=== PATIENT | female | born 1955 | race Caucasian/White ===

== ENCOUNTER 2024-01-26 13:54 | Observation (INO) | payer MEDICARE, SELFPAY ==
[2024-01-26] VITALS (40 sets, daily range): BP systolic 129–161; BP diastolic 81–109; PULSE 52–91; TEMP 36.7–36.8; O2SAT 18–99; BMI 18.5; BMI 19.4
--- NOTE | 2024-01-26 14:20 | CT_ITS ---
The [address] [address] Patient Name: ZHEN OCAMPO MRN: [id number] date: 1955 Sex: F Assigned Patient Location: ER Current Patient Location: Accession/Order Number: [id number] Exam Date: 01/26/2024 15:02 Report Date: 01/26/2024 15:58 At the request of: JUAN PABLO HERNÁNDEZ Procedure: CT abdomen pelvis wo con EXAMINATION: CT abdomen pelvis wo con HISTORY: Right flank pain COMPARISON: No relevant comparison available. TECHNIQUE: Axial, Coronal, and Sagittal images were created without IV contrast. Dose reduction techniques were achieved by using automated exposure control and/or adjustment of mA and/or kV according to patient size and/or use of iterative reconstruction technique. FINDINGS: LUNG BASES: Bibasilar patchy infiltrates with a central predominance. Mild coronary atherosclerosis LIVER: No enlargement, atrophy, abnormal density, or significant focal lesion. BILIARY: Surgical clips from cholecystectomy PANCREAS: No lesion, fluid collection, ductal dilatation, or atrophy. SPLEEN: No enlargement or focal lesion. ADRENALS: No mass or enlargement. KIDNEYS: No mass, obstruction, or calcification. BOWEL/MESENTERY: Moderate colonic diverticulosis without evidence of acute diverticulitis. Moderate amount of stool in the cecum. Nonobstructive bowel gas pattern AORTA/VASCULAR: Moderate calcific atherosclerosis RETROPERITONEUM: No mass or adenopathy. LYMPH NODES: No adenopathy. URINARY BLADDER: No visible focal wall thickening, lesion, or calculus. PELVIC ORGANS: Hysterectomy ABDOMINAL WALL: No mass or hernia. BONES: Posterior decompression bilateral transpedicular fusion OTHER: Negative. CT/CT abdomen pelvis wo con IMPRESSION: Bilateral patchy parenchymal infiltrates with a central predominance. CT scan of the chest recommended for further evaluation Moderate amount of stool in the cecum No obstructive uropathy Electronically authenticated by: NKECHI ZHOU Date: 01/26/2024 15:58
--- NOTE | 2024-01-26 14:20 | XR_ITS ---
The [address] [address] Patient Name: ZHEN OCAMPO MRN: [id number] date: 1955 Sex: F Assigned Patient Location: ER Current Patient Location: ER Accession/Order Number: [id number] Exam Date: 01/26/2024 15:02 Report Date: 01/26/2024 15:33 At the request of: JUAN PABLO HERNÁNDEZ Procedure: XR chest 1V EXAMINATION: XR chest 1V HISTORY: Shortness of breath COMPARISON: 11/20/2012 TECHNIQUE: AP portable FINDINGS: LUNGS: Focal central and basilar infiltrates, right greater than left. Mild peripheral intralobular septal thickening VASCULATURE: Mildly increased pulmonary vasculature PLEURA: No pneumothorax, effusion, or pleural thickening. CARDIAC: No cardiomegaly or cardiac silhouette abnormality. MEDIASTINUM: No visible mass or adenopathy. BONES: No fracture or visible bone lesion. OTHER: Negative. XR/XR chest 1V IMPRESSION: Suspected pulmonary edema Electronically authenticated by: NKECHI ZHOU Date: 01/26/2024 15:33
--- NOTE | 2024-01-26 14:20 | ECG_ITS ---
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
--- NOTE | 2024-01-26 14:22 | ED.GENADUL1 ---
HPI HPI - General Adult General Chief complaint: Urogenital-Female Stated complaint: ABNORMAL LAB VALUE Time Seen by Provider: 01/26/24 14:13 Mode of arrival: walk-in Limitations: no limitations History of Present Illness HPI narrative: Patient is a 68-year-old female who presents to the emergency department where she was referred by her nurse practitioner out of the primary care office. Patient states she was seen for generalized weakness and fatigue over the last 1 to 2 weeks and had outpatient labs done yesterday. She states she was contacted today to report a urinary tract infection and she was started on Macrobid and a steroid. She has been having pain in the right flank and right low back. She denies any injuries or traumas. She has no abdominal pain or chest pain. She has no severe shortness of breath, cough or congestion but states with exertion she has been feeling fatigued. No fevers or vomiting. She reports decreased oral intake but has been drinking fluids well. She has no urinary symptoms. She has no severe pain at this time. She states she was told her labs are all out of whack and she should come to the emergency department. She does not know which labs specifically were concerning to her PCP. Related Data Home Medications ?Medication ?Instructions ?Recorded ?Confirmed bisoprolol 5 1 tab PO DAILY 01/26/24 01/26/24 mg-hydrochlorothiazide 6.25 mg tablet gabapentin 300 mg capsule 300 mg PO Q12H 01/26/24 01/26/24 hydrocodone 5 mg-acetaminophen 325 1 tab PO Q6H PRN pain 01/26/24 01/26/24 mg tablet levothyroxine 100 mcg tablet 100 mcg PO DAILY 01/26/24 01/26/24 (Synthroid) nitrofurantoin 100 mg PO Q12H 01/26/24 01/26/24 monohydrate/macrocrystals 100 mg capsule prednisone 20 mg tablet 20 mg PO Q12H 01/26/24 01/26/24 simvastatin 5 mg tablet 5 mg PO DAILY 01/26/24 01/26/24 venlafaxine 150 mg 150 mg PO DAILY 01/26/24 01/26/24 capsule,extended release 24 hr Allergies Allergy/AdvReac Type Severity Reaction Status Date / Time No Known Drug Allergies Allergy Verified 01/26/24 14:14 Opioid HPI Opioid Management Most Recent Opioid Data: No Data to Display Review of Systems ROS Constitutional Reports: fatigue and malaise; Denies: fever or chills Eyes Denies: change in vision Ears, nose, mouth, and throat Denies: throat pain or nasal congestion Cardiovascular Denies: chest pain Respiratory Reports: shortness of breath; Denies: cough Gastrointestinal Denies: abdominal pain, nausea, vomiting or diarrhea Genitourinary Denies: painful urination Musculoskeletal Reports: back pain; Denies: neck pain Integumentary/Breast Denies: rash Neurological Denies: headache Hematologic/Lymphatic Denies: easy bruising or easy bleeding Exam Narrative Exam Narrative: Gen.: Awake, alert, in no distress Head: Normocephalic, atraumatic ENT: Moist mucous membranes Respiratory: No respiratory distress, lungs clear bilaterally Cardio: Regular rate and rhythm Gastrointestinal: Abdomen is soft, nondistended and nontender to palpation Back: No CVA tenderness Extremities: Moves extremities equally, no injuries noted Psych: Normal mood and affect Neuro: No focal neuro deficit Skin: Warm, dry, intact Constitutional Vital Signs, click to edit/add: Last Vital Signs Temp 98.2 F 01/26/24 14:10 Pulse 80 01/26/24 18:10 Resp 19 01/26/24 18:10 BP 142/85 H 01/26/24 17:45 Pulse Ox 95 01/26/24 17:50 O2 Del Method Room Air 01/26/24 14:10 Course Vital Signs Vital signs: Vital Signs Temperature 98.2 F 01/26/24 14:10 Pulse Rate 83 01/26/24 14:10 Respiratory Rate 18 01/26/24 14:10 Pulse Oximetry 98 01/26/24 14:10 Oxygen Delivery Method Room Air 01/26/24 14:10 Temperature 98.2 F 01/26/24 14:10 Pulse Rate 80 01/26/24 18:10 Respiratory Rate 19 01/26/24 18:10 Blood Pressure 142/85 H 01/26/24 17:45 Pulse Oximetry 95 01/26/24 17:50 Oxygen Delivery Method Room Air 01/26/24 14:10 Medical Decision Making MDM Narrative Medical decision making narrative: Arrival to the ER, IV was established and patient had a septic workup. Vital signs are stable in the ER and the patient did not require any medications for pain. She is resting comfortably throughout her stay in the ER. Lab studies show elevated white blood cell count, stable kidney function and no evidence of UTI. Labs were reviewed from the primary care office consistent with these results. On the chest x-ray, patient was found to have suspected pulmonary edema by the radiologist, although this appears to be a right lower lobe pneumonia. Infiltrates were seen on CT of the abdomen and pelvis which does not show any other pathology but the patient was Sent for CT of the chest to rule out pulmonary embolism given multifocal infiltrates and CT of the chest shows multifocal pneumonia. Patient was given IV fluids, Levaquin. Stable at time of admission Medical Records Medical records reviewed: Yes I reviewed the patient's medical records Lab Data Lab results reviewed: Yes I reviewed the patient's lab results Labs: Lab Results 01/26/24 01/26/24 01/26/24 Range/Units 14:34 14:37 15:10 WBC 21.4 H (4.0-11.0) 10^3/uL RBC 4.11 L (4.20-5.40) 10^6/uL Hgb 10.9 L (12.0-16.0) g/dL Hct 33.0 L (36.0-48.0) % MCV 80.3 L (81.0-99.0) fL MCH 26.5 L (26.7-34.0) pg MCHC 33.0 (29.9-35.2) g/dL RDW 13.7 (11.0-15.0) % Plt Count 679 H (150-450) 10^3/uL MPV 9.6 (9.5-13.5) fL Seg Neuts % (Manual) 90.0 Lymphocytes % (Manual) 6.0 L (20.5-60.0) % Monocytes % (Manual) 4.0 (1.7-12.0) % Eosinophils % (Manual) 0.0 L (0.9-7.0) % Basophils % (Manual) 0.0 L (0.2-2.0) % Neutrophils # (Manual) 19.26 H (1.4-6.5) 10^3/uL Lymphocytes # (Manual) 1.28 (1.20-3.80) 10^3/uL Monocytes # (Manual) 0.85 H (0.30-0.80) 10^3/uL Eosinophils # (Manual) 0.00 (0.00-0.70) 10^3/uL Basophils # (Manual) 0.00 (0.00-0.10) 10^3/uL PT 11.0 (9.0-11.6) sec INR 1.04 VBG pH 7.423 (7.330-7.430) VBG pCO2 43.7 (40.0-52.0) mmHg Sodium 128 L (136-145) mmol/L Potassium 3.0 L (3.5-5.1) mmol/L Chloride 89 L (98-107) mmol/L Carbon Dioxide 27.5 (21.0-32.0) mmol/L Anion Gap 14.5 BUN 7.0 (7.0-18.0) mg/dL Creatinine 0.78 (0.55-1.02) mg/dL Est GFR ( Amer) >60 (>=60) Est GFR (Non-Af Amer) >60 (>=60) BUN/Creatinine Ratio 9.0 Glucose 156 H (74-106) mg/dL Lactate 2.0 (0.4-2.0) mmol/L Calcium 8.8 (8.5-10.1) mg/dL Magnesium 1.5 L (1.8-2.4) mg/dL Total Bilirubin 0.4 (0.2-1.0) mg/dL AST 56 H (15-37) U/L ALT 35 (14-59) U/L Alkaline Phosphatase 258 H (46-116) U/L Troponin I High Sens <4.0 L (4.0-51.3) pg/mL NT-Pro-B Natriuret Pep 228.0 (<=900.0) pg/mL Total Protein 7.0 (6.4-8.2) g/dL Albumin 2.2 L (3.4-5.0) g/dL Globulin 4.8 g/dL Albumin/Globulin Ratio 0.5 Procalcitonin 0.18 (0.00-0.50) ng/mL Urine Color Yellow (YELLOW) Urine Clarity Clear (CLEAR) Urine pH 7.0 (5.0-9.0) Ur Specific [place] 1.010 (1.005-1.025) Urine Protein Negative (NEG/TRACE) mg/dL Urine Glucose (UA) Negative (NEGATIVE) mg/dL Urine Ketones Negative (NEGATIVE) mg/dL Urine Occult Blood Negative (NEGATIVE) Urine Nitrite Positive A (NEGATIVE) Urine Bilirubin Negative (NEGATIVE) Urine Urobilinogen 0.2 (0.2-1.0) EU/dL Ur Leukocyte Esterase Negative (NEGATIVE) Urine RBC None seen (0-2) #/HPF Urine WBC None seen (NONE SEEN) #/HPF Ur Squamous Epith Cells Rare (NONE/RARE) #/LPF Urine Crystals None seen (None Seen) #/HPF Urine Bacteria None seen (NONE SEEN) #/HPF Urine Casts None seen (NONE SEEN) #/LPF Urine Mucus None seen (NONE SEEN) Imaging Data CT scan - abdomen: Attestation: I have reviewed the pertinent imaging results. Radiologist's impression: ITS Impressions Abdomen/Pelvis CT 01/26/24 14:20 IMPRESSION: Bilateral patchy parenchymal infiltrates with a central predominance. CT scan of the chest recommended for further evaluation Moderate amount of stool in the cecum No obstructive uropathy Electronically authenticated by: NKECHI ZHOU Date: 01/26/2024 15:58 Chest X-Ray 01/26/24 14:20 IMPRESSION: Suspected pulmonary edema Electronically authenticated by: NKECHI ZHOU Date: 01/26/2024 15:33 Chest CTA 01/26/24 15:40 IMPRESSION:No evidence of pulmonary embolus. Multifocal pneumonia as described above. Small hiatal hernia. Electronically authenticated by: NUSRAT DOUGLAS Date: 01/26/2024 17:24 ECG Data Attestation: I personally reviewed and interpreted this ECG as follows: (Normal sinus rhythm at a rate of [address] elevation or ectopy. EKG reviewed by attending physician) Discharge Plan Discharge Stand Alone Forms: Portal Instructions Chief Complaint: Urogenital-Female Patient Disposition: Admitted as Observation Time of Disposition Decision: 18:31 Prescriptions / Home Meds: No Action bisoprolol-hydrochlorothiazide 5-6.25 mg tablet 1 tab PO DAILY gabapentin 300 mg capsule 300 mg PO Q12H hydrocodone-acetaminophen 5-325 mg tablet 1 tab PO Q6H PRN (Reason: pain) levothyroxine [Synthroid] 100 mcg tablet 100 mcg PO DAILY nitrofurantoin monohyd/m-cryst 100 mg capsule 100 mg PO Q12H prednisone 20 mg tablet 20 mg PO Q12H simvastatin 5 mg tablet 5 mg PO DAILY venlafaxine 150 mg capsule,extended release 24hr 150 mg PO DAILY Print Language: Hungarian Referrals: JACBO ZHANG [Primary Care Provider] - 1 week
[2024-01-26] MEDS: 0.9 % SODIUM CHLORIDE 1,000 ML 999 ML IV (14:39)
[2024-01-26 14:54] LABS: PCO2 VBG 43.7 mmHg (40.0-52.0); pH VBG 7.423 (7.330-7.430)
[2024-01-26 14:58] LABS: Hemoglobin 10.9 g/dL (12.0-16.0); Mean Corpuscular Hemoglobin 26.5 pg (26.7-34.0); Mean Corpuscular Volume 80.3 fL (81.0-99.0); Mean Platelet Volume 9.6 fL (9.5-13.5); Platelet Count 679 10^3/uL (150-450); Red Blood Count 4.11 10^6/uL (4.20-5.40); Red Cell Distribution Width 13.7 % (11.0-15.0); White Blood Count 21.4 10^3/uL (4.0-11.0)
[2024-01-26 15:17] LABS: INR 1.04
[2024-01-26 15:21] LABS: Bilirubin Urine NEGATIVE (NEGATIVE); Blood Urine NEGATIVE (NEGATIVE); Clarity Urine CLEAR (CLEAR); Color Urine YELLOW (YELLOW); Glucose Urine UA NEGATIVE (NEGATIVE); Ketones Urine NEGATIVE (NEGATIVE); Leukocyte Esterase Urine NEGATIVE (NEGATIVE); Nitrite Urine POSITIVE (NEGATIVE); Protein Urine NEGATIVE (NEG/TRACE); Urobilinogen Urine 0.2 EU/dL (0.2-1.0)
[2024-01-26 15:23] LABS: Urine Microscopic Indicated YES
[2024-01-26 15:32] LABS: Bacteria Urine NONE SEEN #/HPF (NONE SEEN); Cast Seen? NONE SEEN #/LPF (NONE SEEN); Crystals Seen? None Seen #/HPF (None Seen); Mucus Urine NONE SEEN (NONE SEEN); RBC Urine NONE SEEN #/HPF (0-2); Squamous Epithelial Cell Urine RARE #/LPF (NONE/RARE); WBC Urine NONE SEEN #/HPF (NONE SEEN)
[2024-01-26 15:39] LABS: Lymphocytes Absolute Manual 1.28 10^3/uL (1.20-3.80); Monocytes Absolute Manual 0.85 10^3/uL (0.30-0.80); Segmented Neut Absolute Manual 19.26 10^3/uL (1.4-6.5)
--- NOTE | 2024-01-26 15:40 | CT_ITS ---
[address] [address] Patient Name: ZHEN OCAMPO MRN: [id number] date: 1955 Sex: F Assigned Patient Location: ER Current Patient Location: .[facility] Accession/Order Number: [id number] Exam Date: 01/26/2024 16:20 Report Date: 01/26/2024 17:24 At the request of: JUAN PABLO HERNÁNDEZ Procedure: CT angio chest EXAM: CT angio chest HISTORY: Right flank pain, shortness of breath COMPARISON: None. TECHNIQUE: CT chest with intravenous contrast was performed with timing for the evaluation for pulmonary arteries. Multiplanar reformats were performed. MIP (maximum intensity projection) images or 3D post processing was performed. Dose reduction techniques were achieved by using automated exposure control and/or adjustment of mA and/or kV according to patient size and/or use of iterative reconstruction technique. FINDINGS: Lungs: Bilateral centrilobular emphysema. There is right upper and lower lobe and left lower lobe consolidations, representing multifocal pneumonia. No pneumothorax or effusion. Airways: Normal. Mediastinum: No adenopathy. Aorta: No aneurysm. Cardiac: Normal size. No pericardial effusion. Coronary artery: Mild calcification. Pulmonary vasculature: Diagnostic opacification of pulmonary arteries without evidence of pulmonary embolus. Normal morphology. Bones: No acute bony abnormality. Axilla: No adenopathy. Thyroid gland: No abnormality demonstrated on provided imaging. Soft tissues: Unremarkable. Upper abdomen: Small hiatal hernia. Additional findings: None. CT/CT angio chest IMPRESSION:No evidence of pulmonary embolus. Multifocal pneumonia as described above. Small hiatal hernia. Electronically authenticated by: NUSRAT DOUGLAS Date: 01/26/2024 17:24
[2024-01-26 15:52] LABS: PROCALCITONIN 0.18 ng/mL (0.00-0.50)
[2024-01-26 16:03] LABS: Alanine Aminotransferase 35 U/L (14-59); Albumin Globulin Ratio 0.5; Albumin Level 2.2 g/dL (3.4-5.0); Alkaline Phosphatase 258 U/L (46-116); Anion Gap 14.5; Aspartate Amino Transferase 56 U/L (15-37); Bilirubin Total 0.4 mg/dL (0.2-1.0); Calcium 8.8 mg/dL (8.5-10.1); Carbon Dioxide 27.5 mmol/L (21.0-32.0); Chloride 89 mmol/L (98-107); Estimated GFR (African America >60 (>=60); Estimated GFR (Non-African Ame >60 (>=60); Globulin 4.8 g/dL; Glucose 156 mg/dL (74-106); Magnesium 1.5 mg/dL (1.8-2.4); Sodium 128 mmol/L (136-145); Troponin I High Sensitivity <4.0 pg/mL (4.0-51.3)
[2024-01-26] MEDS: LEVOFLOXACIN IN DEXTROSE 5 % 750 MG/150 ML IV.SOLN 100 MG IV (16:28)
[2024-01-26] MEDS: POTASSIUM CHLORIDE 10 MEQ ER TABLET 40 MEQ PO (16:38)
[2024-01-26 20:41] LABS: Adenovirus NOT DETECTED (NOT DETECTE); Bordetella parapertussis NOT DETECTED (NOT DETECTE); Coronavirus 229E NOT DETECTED (NOT DETECTE); Coronavirus HKU1 NOT DETECTED (NOT DETECTE); Coronavirus NL63 NOT DETECTED (NOT DETECTE); Coronavirus OC43 NOT DETECTED (NOT DETECTE); Human Metapneumovirus NOT DETECTED (NOT DETECTE); Human Rhinovirus/Enterovirus NOT DETECTED (NOT DETECTE); Influenza A NOT DETECTED (NOT DETECTE); Influenza B NOT DETECTED (NOT DETECTE); Mycoplasma pneumoniae NOT DETECTED (NOT DETECTE); Parainfluenza Virus 1 NOT DETECTED (NOT DETECTE); Parainfluenza Virus 2 NOT DETECTED (NOT DETECTE); Parainfluenza Virus 3 NOT DETECTED (NOT DETECTE); Parainfluenza Virus 4 NOT DETECTED (NOT DETECTE); Respiratory Syncytial Virus NOT DETECTED (NOT DETECTE); SARS-CoV-2 NOT DETECTED (NOT DETECTE)
[2024-01-26] MEDS: 0.9 % SODIUM CHLORIDE 1,000 ML 125 ML IV (21:18)
[2024-01-26] MEDS: GABAPENTIN 300 MG CAPSULE PO (21:19)
[2024-01-26] MEDS: ATORVASTATIN CALCIUM 10 MG TABLET 5 MG PO (21:19)
[2024-01-26] MEDS: PREDNISONE 20 MG TABLET PO (21:20)
[2024-01-27] VITALS (9 sets, daily range): BP systolic 146–161; BP diastolic 80–91; PULSE 52–82; TEMP 36.4–36.7; O2SAT 92–98
[2024-01-27] MEDS: ACETAMINOPHEN 325 MG TABLET 650 MG PO (04:20)
[2024-01-27] MEDS: 0.9 % SODIUM CHLORIDE 1,000 ML 125 ML IV ×2 (04:20→11:38)
[2024-01-27] MEDS: HYDROCODONE/ACET 5-325 MG TABLET 1 TAB PO (04:21)
[2024-01-27 05:33] LABS: PCO2 VBG 35.8 mmHg (40.0-52.0); pH VBG 7.456 (7.330-7.430)
[2024-01-27 05:50] LABS: Basophils Percent Auto 0.1 % (0.2-2.0); Hematocrit 32.6 % (36.0-48.0); Hemoglobin 10.5 g/dL (12.0-16.0); Immature Granulocytes Abs Auto 0.45 10^3/uL (0.00-0.03); Immature Granulocytes Pct Auto 3.2 % (0.0-0.5); Lymphocytes Absolute Auto 1.4 10^3/uL (1.2-3.8); Lymphocytes Percent Auto 10.4 % (20.5-60.0); Mean Corpuscular HGB Conc 32.2 g/dL (29.9-35.2); Mean Corpuscular Hemoglobin 26.2 pg (26.7-34.0); Mean Corpuscular Volume 81.3 fL (81.0-99.0); Mean Platelet Volume 9.2 fL (9.5-13.5); Monocytes Absolute Auto 0.3 10^3/uL (0.3-0.8); Monocytes Percent Auto 2.2 % (1.7-12.0); Neutrophils Absolute Auto 11.7 10^3/uL (1.4-6.5); Neutrophils Percent Auto 84.1 % (43.0-75.0); Platelet Count 637 10^3/uL (150-450); Red Blood Count 4.01 10^6/uL (4.20-5.40); Red Cell Distribution Width 13.6 % (11.0-15.0); White Blood Count 13.9 10^3/uL (4.0-11.0)
[2024-01-27 05:54] LABS: Alanine Aminotransferase 32 U/L (14-59); Albumin Globulin Ratio 0.5; Alkaline Phosphatase 220 U/L (46-116); Anion Gap 13.4; Aspartate Amino Transferase 44 U/L (15-37); BUN Creatinine Ratio 13.1; Bilirubin Total 0.2 mg/dL (0.2-1.0); Calcium 8.4 mg/dL (8.5-10.1); Carbon Dioxide 26.1 mmol/L (21.0-32.0); Chloride 96 mmol/L (98-107); Estimated GFR (African America >60 (>=60); Estimated GFR (Non-African Ame >60 (>=60); Globulin 4.3 g/dL; Glucose 134 mg/dL (74-106); Potassium 3.5 mmol/L (3.5-5.1); Sodium 132 mmol/L (136-145); Total Protein 6.3 g/dL (6.4-8.2)
[2024-01-27] MEDS: PREDNISONE 20 MG TABLET PO (06:01)
[2024-01-27] MEDS: LEVOTHYROXINE SODIUM 100 MCG TABLET PO (06:01)
[2024-01-27] MEDS: GABAPENTIN 300 MG CAPSULE PO (06:01)
--- OUTSIDE RECORDS SUMMARY | 2024-01-27 09:19 | XMS_ITS | CCD ---
Author Organization [facility] Care Team Providers Care Design Studio Consultant Name Role Phone Jacob Olivares Primary Care Provid er JACOB ZHANG Attending Unavailable JACOB ZHANG Referring Unavailable JACOB ZHANG Primary Care Unavailable JACOB ZHANG Attending Unavailable JACOB ZHANG Referring Unavailable JACOB ZHANG Primary Care Unavailable JACOB ZHANG Attending Unavailable JACOB ZHANG Referring Unavailable JACOB ZHANG Primary Care Unavailable JACOB ZHANG Referring Unavailable JACOB ZHANG Primary Care Unavailable JACOB ZHANG Referring Unavailable JACOB ZHANG Primary Care Unavailable Medications Current Medications Medication Drug Class(es) Dates Sig (Normalized) Sig (Original) acetaminophen 325 mg / HYDROcodone bitartrate 5 mg oral tablet (1 source) Opioid Agonist Start: 09-20-2023 End: 10-20-2023 HYDROcodone-acet aminophen (NORCO) 5-325 mg per tablet Indications: Fibromyalgia affecting multiple sites Take 1 tablet by mouth every 8 (eight) hours as needed for pain for up to 30 days. Max Daily Amount: 3 tablets 45 tablet 0 09/20/2023 10/20/2023 Active alendronic acid 35 mg oral tablet (2 sources) Bisphosphonate Start: 02-08-2022 take 4 tablets by mouth in the morning alendronate (FOSAMAX) 35 mg tablet Indications: Osteopenia of multiple sites In a.m. with water on empty stomach, nothing else by mouth and remain upright for 30min 4 tablet 3 02/08/2022 Active bisoprolol fumarate 5 mg / hydroCHLOROthiazide 6.25 mg oral tablet (3 sources) Thiazide Diuretic, beta-Adrenergic Melvin Start: 09-20-2023 take 1 tablet by mouth once in the morning bisoprolol-hydro CHLOROthiazide (ZIAC) 5-6.25 mg per tablet Indications: Essential hypertension Take 1 tablet by mouth in the morning. 90 tablet 1 09/20/2023 Active Start: 06-16-2023 End: 09-20-2023 take 1 tablet by mouth once in the morning bisoprolol-hydroCHLOROthiazide (ZIAC) 5- 6.25 mg per tablet Indications: Essential hypertension Take 1 tablet by mouth in the morning. 14 tablet 0 06/16/2023 09/20/2023 Discontinued (Reorder) cholecalciferol 1.25 mg oral capsule (2 sources) Vitamin D Start: 06-16-2023 take 1 capsule by mouth every week cholecalciferol (VITAMIN D3) 50,000 units capsule Indications: Vitamin D deficiency Take 1 capsule (50,000 Units total) by mouth once a week. 12 capsule 2 06/16/2023 Active gabapentin 300 mg oral capsule (5 sources) Anti-epilepti c Agent Start: 09-20-2023 gabapentin (NEURONTIN) 300 mg capsule Indications: Fibromyalgia affecting multiple sites Once daily at HS 7 capsule 0 09/20/2023 Active Start: 06-16-2023 End: 09-20-2023 gabapentin (NEURONTIN) 300 m g capsule Indications: Fibromyalgia affecting multiple sites Once daily at HS 90 capsule 1 09/20/2023 09/20/2023 Discontinued (Reorder) levothyroxine sodium 0.1 mg oral tablet (3 sources) l-Thyroxine Start: 09-20-2023 take 1 tablet by mouth in the morning levothyroxine (SYNTHROID, LEVOTHROID) 100 MCG tablet Indications: Acquired hypothyroidism Take 1 tablet (100 mcg total) by mouth in the morning. 90 tablet 1 09/20/2023 Active Start: 06-16-2023 End: 09-20-2023 take 1 tablet by mouth in the morning levothyroxine (SYNTHROID, LEVOTHROID) 100 MCG tablet Indications: Acquired hypothyroidism Take 1 tablet (100 mcg total) by mouth in the morning. 90 tablet 1 06/16/2023 09/20/2023 Discontinued (Reorder) naproxen 500 mg oral tablet (2 sources) Nonsteroidal Anti-inflammatory Drug Start: 09-02-2020 take 1 tablet by mouth twice daily at mealtime naproxen (NAPROSYN) 500 mg tablet Indications: Arthritis of multiple sites , Chronic bilateral low back pain with sciatica, sciatica laterality unspecified , Fibromyalgia, primary , Hx of decompressive lumbar laminectomy Take 1 tablet (500 mg total) by mouth 2 (two) times a day with meals. 60 tablet 6 09/02/2020 Active predniSONE 20 mg oral tablet (2 sources) Start: 08-31-2023 End: 09-20-2023 predniSONE (DELTASONE) 20 mg tablet Indications: Fibromyalgia affecting multiple sites , Chronic bilateral low back pain with sciatica, sciatica laterality unspecified Take 1 tablet (20 mg total) by mouth See Admin Instructions. 1 tab 2x daily x3 days, 1 tab daily x3 days, 1/2 tablet daily x4 days 11 tablet 0 08/31/2023 09/20/2023 Discontinued (Therapy completed) simvastatin 5 mg oral tablet (3 sources) HMG-CoA Reductase Inhibitor Start: 09-20-2023 take 1 tablet by mouth once daily simvastatin (ZOCOR) 5 mg tablet Indications: Mixed hyperlipidemia Take 1 tablet (5 mg total) by mouth nightly. 90 tablet 2 09/20/2023 Active Start: 06-16-2023 End: 09-20-2023 take 1 tablet by mouth once daily simvastatin (ZOCOR) 5 mg tablet Indications: Mixed hyperlipidemia Take 1 tablet (5 mg total) by mouth nightly. 90 tablet 2 06/16/2023 09/20/2023 Discontinued (Reorder) 24 hr venlafaxine 150 mg extended release oral capsule (6 sources) Serotonin and Norepinephrine Reuptake Inhibitor Start: 09-20-2023 take 1 capsule by mouth once daily venlafaxine XR (EFFEXOR-XR) 150 mg 24 hr capsule Indications: Major depressive disorder with single episode, in partial remission (CMS-HCC) take 1 capsule by mouth daily ALONG WITH 150 MG FOR A TOTAL DOSE OF 225 MG Strength: 150 mg 90 capsule 1 09/20/2023 Active Start: 09-20-2023 take 1 capsule by mo [facility] every twenty-four hours in the morning venlafaxine XR (EFFEXOR XR) 75 mg 24 hr capsule Indications: Major depressive disorder with single episode, in partial remission (CMS-HCC) Take 1 capsule (75 mg total) by mouth in the morning. 90 capsule 1 09/20/2023 Active Start: 06-16-2023 End: 09-20-2023 take 1 capsule by mouth once daily venlafaxine XR (EFFEXOR-XR) 150 mg 24 hr capsule Indications: Major depressive disorder with single episode, in partial remission (CMS-HCC) take 1 capsule by mouth daily ALONG WITH 150 MG FOR A TOTAL DOSE OF 225 MG Strength: 150 mg 90 capsule 1 06/16/2023 09/20/2023 Discontinued (Reorder) Start: 06-16-2023 End: 09-20-2023 take 1 capsule by mouth every twenty-four hours in the morning venlafaxine XR (EFFEXOR XR) 75 mg 24 hr capsule Indications: Major depressive disorder with single episode, in partial remission (CMS-HCC) Take 1 capsule (75 mg total) by mouth in the morning. 90 capsule 1 06/16/2023 09/20/2023 Discontinued (Reorder) Problems Active Problems Problem Classification Problem Date Documented Da te Episodic/Chronic Abdominal pain (2 sources) Unspecified abdominal pain; 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: [Flank pain] Onset: 4 Episodic Anxiety disorders (2 sources) Anxiety; 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: [Anxiety disorder, unspecified] 09-15-2017 Chronic Disorders of lipid metabolism (4 sources) Mixed hyperlipidemia; 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: [Mixed hyperlipidemia] Onset: 9 11-27-2018 Chronic Esophageal disorders (2 sources) Gastroesophageal reflux disease; 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: [Gastro-esophageal reflux disease without esophagitis] 09-19-2017 Chronic Essential hypertension (4 sources) Hypertensive disorder; 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: [Essential (primary) hypertension] Onset: 4 09-15-2017 Chronic Malaise and fatigue (5 sources) Fatigue; 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: [Other fatigue] Onset: 8 Resolved: 2 10-21-2021 Episodic Mood disorders (8 sources) Major depression in partial remission; 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: [Major depressive disorder, single episode, in partial remission] Onset: 9 11-27-2018 Chronic Nutritional deficiencies (2 sources) Vitamin D deficiency; 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: [Vitamin D deficiency, unspecified] Onset: 8 02-09-2018 Chronic Other aftercare (2 sources) roasterman (current) use of opiate analgesic; 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: [intermediate (current) use of opiate analgesic] Onset: 4 Episodic Other connective tissue disease (4 sources) Fibromyalgia; 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: [Fibromyalgia] Onset: 0 08-31-2023 Episodic Other connective tissue disease (2 sources) Primary fibromyalgia syndrome; 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: [Fibromyalgia] 05-10-2018 Episodic Other gastrointestinal disorders (2 sources) Irritable bowel syndrome; 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: [Irritable bowel syndrome without diarrhea] 09-19-2017 Chronic Other lower respiratory disease (1 source) Shortness of breath Onset: 4 Episodic Other nervous system disorders (1 source) Chronic pain syndrome; 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: [Chronic pain syndrome] 09-20-2023 Chronic Other non-traumatic joint disorders (2 sources) Arthritis; 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: [Polyarthritis, unspecified] Onset: 8 09-15-2017 Chronic Thyroid disorders (5 sources) Hypothyroidism; 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: [Hypothyroidism, unspecified] Onset: 8 10-13-2017 Chronic Unclassified (1 source) Medication Recheck Onset: 4 Urinary tract infections (1 source) Acute cystitis without hematuria; 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: [Acute cystitis without hematuria] Onset: 4 Episodic Past or Other Problems Problem Classification Problem Date Documented Da te Episodic/Chronic Deficiency and other anemia (2 sources) Iron deficiency anemia; 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: [Iron deficiency anemia, unspecified] Onset: 02-05-2019 02-05-2019 Episodic Deficiency and other anemia (2 sources) Other iron deficiency anemias; 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: [Other iron deficiency anemias] Onset: 02-05-2019 Episodic Gastrointestinal hemorrhage (2 sources) Rectal hemorrhage; 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: [Hemorrhage of anus and rectum] Onset: 09-15-2017 Resolved: 10-21-2021 10-21-2021 Episodic Immunizations and screening for infectious disease (2 sources) Needs influenza immunization; 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: [Encounter for immunization] Onset: 09-15-2017 Resolved: 08-24-2018 08-24-2018 Episodic Mood disorders (2 sources) Mood disorders Onset: 06-16-2023 Resolved: 09-20-2023 06-16-2023 Nutritional deficiencies (2 sources) Cobalamin deficiency; 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: [Deficiency of other specified B group vitamins] Onset: 11-27-2018 11-27-2018 Episodic Other bone disease and musculoskeletal deformities (2 sources) Osteopenia; 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: [Other specified disorders of bone density and structure, multiple sites] Onset: 10-13-2017 10-13-2017 Episodic Other connective tissue disease (1 source) Fibromyalgia; 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: [Fibromyalgia] Onset: 02-05-2020 Episodic Other ear and sense organ disorders (2 sources) Impacted cerumen of bilateral ears; 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: [Impacted cerumen, bilateral] Onset: 09-18-2017 Resolved: 10-21-2021 10-21-2021 Episodic Other gastrointestinal disorders (2 sources) Constipation; 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: [Constipation, unspecified] Onset: 06-03-2020 06-03-2020 Episodic Other nervous system disorders (2 sources) Paresthesia of lower extremity; 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: [Anesthesia of skin] Onset: 05-22-2018 Resolved: 07-21-2022 07-21-2022 Episodic Other screening for suspected conditions (not mental disorders or infectious disease) (2 sources) Patient encounter status; 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: [Encounter for other screening for malignant neoplasm of breast] Onset: 10-13-2017 02-05-2019 Episodic Residual codes; unclassified (2 sources) Postmenopausal state; 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: [Asymptomatic menopausal state] Onset: 10-13-2017 10-13-2017 Episodic Residual codes; unclassified (2 sources) Menopause present; 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: [Asymptomatic menopausal state] Onset: 02-05-2020 02-05-2020 Episodic Residual codes; unclassified (1 source) Other specified postprocedural states; 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: [Other specified postprocedural states] Onset: 02-05-2019 Episodic Spondylosis; intervertebral disc disorders; other back problems (3 sources) Chronic low back pain; 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: [Lumbago with sciatica, unspecified side] Onset: 09-18-2017 08-31-2023 Episodic Unclassified (2 sources) Onset: 06-16-2023 06-16-2023 Results Test Name Value Interpretation Reference Range Facility CBC AND AUTO DIFFon 01-25-20 ABSOLUTE BASOPHIL 0.2 X10E9/L Normal 0.0-0.2 [facility] Comment on above: Performed By: #### C BCA, CMP, FEPR, 3016-3, 2276-4, 2132-9 #### [facility] ([id number]) [address], [address] [place] [address] Band form neutrophils/100 WBC (Bld) 4.0 % Normal [facility] Comment on above: Performed By: #### C BCA, CMP, FEPR, 3016-3, 6-4, 2132-04 #### [facility] ([id number]) [address], [facility] [address] [place] [address] Basophils/100 WBC (Bld) 1.0 % Normal [facility] Comment on above: Performed By: #### C BCA, CMP, FEPR, 3016-3, 6-4, 2132-04 #### [facility] ([id number]) [address], [facility] [address] [place] [address] STEVE 1+ Abnormal NONE [facility] Comment on above: Performed By: #### C BCA, CMP, FEPR, 6-3, 2275-4, 2132-04 #### [facility] ([id number]) [address], [facility] [address] [place] [address] Erythrocyte distribution width (RBC) [Ratio] 14.6 % Normal 11.5-15.0 [facility] Comment on above: Performed By: #### C BCA, CMP, FEPR, 3016-3, 6-4, 2132-04 #### [facility] ([id number]) [address] [address] Hematocrit (Bld) [Volume fraction] 36.9 % Normal 35-47 [facility] Comment on above: Performed By: #### C BCA, CMP, FEPR, 3016-3, 6-4, 2132-04 #### [facility] ([id number]) [address] [address] [place] [address] Hemoglobin (Bld) [Mass/Vol] 12.1 g/dL Normal 11.7-15.5 [facility] Comment on above: Performed By: #### C BCA, CMP, FEPR, 3016-3, 2276-4, 2132-04 #### [facility] ([id number]) [address], [address] [place] [address] Lymphocytes (Bld) [#/Vol] 3.0 10*3/uL Normal 1.0-3.5 [facility] Comment on above: Performed By: #### C BCA, CMP, FEPR, 3016-3, 2275-4, 2132-04 #### [facility] ([id number]) [address], [address] [place] [address] Lymphocytes/100 WBC (Bld) 15.0 % Normal [facility] Comment on above: Performed By: #### C BCA, CMP, FEPR, 3016-3, 2275-4, 2132-04 #### [facility] ([id number]) [address], [address] [place] [address] MCH (RBC) [Entitic mass] 26.4 pg Low 27-34 [facility] Comment on above: Performed By: #### C BCA, CMP, FEPR, 3016-3, 2275-4, 2132-04 #### [facility] ([id number]) [address], [address] [place] [address] MCHC (RBC) [Mass/Vol] 32.8 g/dL Normal 32-36 [facility] Comment on above: Performed By: #### C BCA, CMP, FEPR, 3016-3, 6-4, 2132-04 #### [facility] ([id number]) [address], [address] [place] [address] MCV (RBC) [Entitic vol] 81 fL Normal 80-100 [facility] Comment on above: Performed By: #### C BCA, CMP, FEPR, 3016-3, 2276-4, 2132-04 #### [facility] ([id number]) [address], [address] [place] [address] Metamyelocytes/100 WBC (Bld) 2.0 % Normal [facility] Comment on above: Performed By: #### C BCA, CMP, FEPR, 6-3, 2275-4, 2132-04 #### [facility] ([id number]) [address], [address] [place] [address] Monocytes (Bld) [#/Vol] 1.2 10*3/uL High 0-0.9 [facility] Comment on above: Performed By: #### C BCA, CMP, FEPR, 3015-3, 2275-11, 2132-04 #### [facility] ([id number]) [address], [address] [place] [address] Monocytes/100 WBC (Bld) 6.0 % Normal [facility] Comment on above: Performed By: #### C BCA, CMP, FEPR, 3015-3, 2275-11, 2132-04 #### [facility] ([id number]) [address], [address] [place] [address] Neutrophils (Bld) [#/Vol] 15.1 10*3/uL High 1.5-6.6 [facility] Comment on above: Performed By: #### C BCA, CMP, FEPR, 3015-3, 2275-11, 2132-04 #### [facility] ([id number]) [address], [address] [place] [address] Platelet mean volume (Bld) [Entitic vol] 7.9 fL Normal 7-12 [facility] Comment on above: Performed By: #### C BCA, CMP, FEPR, 3015-3, 2275-, 2132-04 #### [facility] ([id number]) [address], [address] [place] [address] Platelets (Bld) [#/Vol] 789 10*3/uL High 150-450 [facility] Comment on above: Performed By: #### C BCA, CMP, FEPR, 3016-3, 6-4, 2132-04 #### [facility] ([id number]) [address], [address] [place] [address] RBC COUNT 4.58 X10E12/L Normal 3.80-5.20 [facility] Comment on above: Performed By: #### C BCA, CMP, FEPR, 3016-3, 2275-4, 2132-04 #### [facility] ([id number]) [address], [address] [place] [address] SEG NEUTROPHIL 72.0 % Normal [facility] Comment on above: Performed By: #### C BCA, CMP, FEPR, 3015-3, 2275-4, 2132-04 #### [facility] ([id number]) [address], [address] [place] [address] WBC (Bld) [#/Vol] 19.9 10*3/uL High 4.0-11.0 [facility] Comment on above: Performed By: #### C BCA, CMP, FEPR, 6-3, 2275-4, 2132-04 #### [facility] ([id number]) [address], [address] [place] [address] COMPREHENSIVE METABOLIC PANE [place] 01-25-2024 Albumin [Mass/Vol] 3.6 g/dL Normal 3.2-5.3 [facility] Comment on above: Performed By: #### C BCA, CMP, FEPR, 3016-3, 2275-4, 2132-04 #### [facility] ([id number]) [address], [address] [place] [address] ALP [Catalytic activity/Vol] 204 U/L High 39-130 [facility] Comment on above: Performed By: #### C BCA, CMP, FEPR, 3016-3, 6-4, 2132-04 #### [facility] ([id number]) [address], [address] [place] [address] ALT [Catalytic activity/Vol] 29 U/L Normal 0-31 [facility] Comment on above: Performed By: #### C BCA, CMP, FEPR, 3016-3, 2276-4, 2132-04 #### [facility] ([id number]) [address], [address] [place] [address] Anion gap [Moles/Vol] 14 mmol/L Normal 5-15 [facility] Comment on above: Performed By: #### C BCA, CMP, FEPR, 3016-3, 2275-4, 2132-04 #### [facility] ([id number]) [address], [address] [place] [address] AST [Catalytic activity/Vol] 53 U/L High 0-41 [facility] Comment on above: Performed By: #### C BCA, CMP, FEPR, 3016-3, 2275-4, 2132-04 #### [facility] ([id number]) [address], [address] [place] [address] Bilirubin [Mass/Vol] 0.4 mg/dL Normal 0.3-1.2 [facility] Comment on above: Performed By: #### C BCA, CMP, FEPR, 3016-3, 2276-4, 2132-04 #### [facility] ([id number]) [address], [address] [place] [address] Calcium [Mass/Vol] 9.2 mg/dL Normal 8.5-10.5 [facility] Comment on above: Performed By: #### C BCA, CMP, FEPR, 3016-3, 2276-4, 2132-04 #### [facility] ([id number]) [address], [address] [place] [address] Chloride [Moles/Vol] 86 mmol/L Low 98-109 [facility] Comment on above: Performed By: #### C BCA, CMP, FEPR, 3016-3, 6-4, 2132-04 #### [facility] ([id number]) [address], [address] [place] [address] CO2 [Moles/Vol] 27 mmol/L Normal 22-32 [facility] Comment on above: Performed By: #### C BCA, CMP, FEPR, 3016-3, 2275-4, 2132-04 #### [facility] ([id number]) [address], [facility] [address] [place] [address] Creatinine [Mass/Vol] 0.68 mg/dL Normal 0.40-1.00 [facility] Comment on above: Result Comment: METH OD TRACEABLE TO IDMS STANDARD Performed By: #### C BCA, CMP, FEPR, 6-3, 2275-4, 2132-04 #### [facility] ([id number]) [address], [address] [place] [address] eGFR (CKD-EPI) NON-RACE DEPENDENT >90 Normal >59 [facility] Comment on above: Result Comment: Reported eGFR is based on the CKD-EPI 2020 equation that does not use a race coefficient. Performed By: #### C BCA, CMP, FEPR, 6-3, 2275-4, 2132-04 #### [facility] ([id number]) [address], [address] [place] [address] Glucose [Mass/Vol] 101 mg/dL High 65-99 [facility] Comment on above: Performed By: #### C BCA, CMP, FEPR, 3016-3, 6-4, 2132-04 #### [facility] ([id number]) [address] [address] [place] [address] Potassium [Moles/Vol] 3.1 mmol/L Low 3.5-5.0 [facility] Comment on above: Performed By: #### C BCA, CMP, FEPR, 3016-3, 2276-4, 2132-04 #### [facility] ([id number]) [address], [address] [place] [address] Protein [Mass/Vol] 7.4 g/dL Normal 6.0-8.0 [facility] Comment on above: Performed By: #### C BCA, CMP, FEPR, 3016-3, 2276-4, 2132-04 #### [facility] ([id number]) [address] [place] [address] Sodium [Moles/Vol] 127 mmol/L Low 134-146 [facility] Comment on above: Performed By: #### C BCA, CMP, FEPR, 3016-3, 2275-4, 2132-04 #### [facility] ([id number]) [address] [place] [address] Urea nitrogen [Mass/Vol] 9 mg/dL Normal 5-27 [facility] Comment on above: Performed By: #### C BCA, CMP, FEPR, 3016-3, 2275-4, 2132-04 #### [facility] ([id number]) [address] [place] [address] FERRITINon 01-25-2024 Ferritin [Mass/Vol] 324 ng/mL High 11-307 [facility] Comment on above: Performed By: #### C BCA, CMP, FEPR, 3016-3, 2276-4, 2132-04 #### [facility] ([id number]) [address] [place] [address] IRON PROFILEon 01-25-2024 Iron [Mass/Vol] 24 ug/dL Low 50-170 [facility] Comment on above: Performed By: #### C BCA, CMP, FEPR, 3016-3, 2276-4, 2132-04 #### [facility] ([id number]) [address], [address] [place] [address] IRON BINDING 266 ug/dL Normal 250-425 [facility] Comment on above: Performed By: #### C BCA, CMP, FEPR, 3016-3, 6-4, 2132-04 #### [facility] ([id number]) [address], [address] [place] [address] IRON SATURATION 9 % SATURATION Low 15-50 [facility] Comment on above: Performed By: #### C BCA, CMP, FEPR, 3015-3, 2275-4, 2132-04 #### [facility] ([id number]) [address] [place] [address] TSH Qnon 01-25-2024 TSH 5.23 uIU/mL High 0.49-4.67 [facility] Comment on above: Performed By: #### C BCA, CMP, FEPR, 3015-3, 2275-4, 2132-04 #### [facility] ([id number]) [address] [place] [address] URINE CULTUREon 01-25-2024 Bacteria identified Cx Nom (U) SPECIMEN NOTES URINE RECEIVED WITHOUT PRESERVATIVE CULTURE RESULTS 50,000 to 100,000 ORGANISMS/mL ESCHERICHIA COLI <10,000 ORGANISMS/mL NORMAL URO GENITAL NERIS Normal [facility] Comment on above: Performed By: #### 6 30-4 #### [facility] ([id number]) [address] [place] [address] VITAMIN B12on 01-25-2024 Cobalamin (Vitamin B12) [Mass/Vol] 510 pg/mL Normal 180-914 [facility] Comment on above: Performed By: #### C BCA, CMP, FEPR, 3016-3, 6-4, 2132-04 #### [facility] ([id number]) [address] [place] [address] DRUG SCREEN, URINEon 024 AMPHETAMINE/METHAMP Negative Normal NEG [facility] Comment on above: Result Comment: AMPH /METH screening cut off = 1000 ng/mL Performed By: #### D HOUGH #### [facility] ([id number]) [address] [place] [address] BARBITURATES Negative Normal NEG [facility] Comment on above: Result Comment: Emani iturates screening cut off value = 200 ng/mL Performed By: #### D HOUGH #### [facility] ([id number]) [address] [place] [address] BENZODIAZEPINES Negative Normal NEG [facility] Comment on above: Result Comment: Serjio odiazepines screening cut off value = 200 ng/mL Performed By: #### D HOUGH #### [facility] ([id number]) [address] [place] [address] CANNABINOIDS Positive Abnormal NEG [facility] Comment on above: Result Comment: Conf irmation available upon request. Cannabinoids/THC screening cut off value = 50 ng/mL Performed By: #### D HOUGH #### [facility] ([id number]) [address] [place] [address] COCAINE METABOLITE Negative Normal NEG [facility] Comment on above: Result Comment: Coca ine screening cut off value = 300 ng/mL Performed By: #### D HOUGH #### [facility] ([id number]) [address] [place] [address] ECSTASY Negative Normal NEG [facility] Comment on above: Result Comment: Ecst asy screening cut off value = 500 ng/mL This report is intended for use in clinical monitoring or management of patients. Performed By: #### D HOUGH #### [facility] ([id number]) [address], [address] [place] [address] METHADONE Negative Normal NEG [facility] Comment on above: Result Comment: Meth adone screening cut off value = 300 ng/mL. Performed By: #### D HOUGH #### [facility] ([id number]) [address], [address] [place] [address] OPIATES Negative Normal NEG [facility] Comment on above: Result Comment: Opia lena screening cut off value = 300 ng/mL NOTE: This test is used for the detection of codeine, hydrocodone (>1000 ng/mL), morphine and hydromorphone (>900 ng/mL) in urine. Performed By: #### D HOUGH #### [facility] ([id number]) [address], [address] [place] [address] OXYCODONE Negative Normal [facility] Comment on above: Result Comment: Oxyc odone screening cut off value = 300 ng/mL NOTE: This test is used for the detection of oxycodone and oxymorphone in urine. Performed By: #### D HOUGH #### [facility] ([id number]) [address], [address] [place] [address] PHENCYCLIDINE Negative Normal [facility] Comment on above: Result Comment: Phen cyclidine screening cut off value = 25 ng/mL Performed By: #### D HOUGH #### [facility] ([id number]) [address], [address] [place] [address] Vital Signs Date Time Vital Sign Value Performing Clinician Faci lity 09-20-2023 08:23-0500 Body height 167.6 cm Jacob TRAYLOR Work Phone: [facility] 09-20-2023 08:23-0500 Body mass index (BMI) [Ratio] 20.3 kg/m2 Jacob TRAYLOR Work Phone: [facility] 09-20-2023 08:23-0500 Body temperature 97.9 [degF] Jacob Zhang APRN-CLAIR Work Phone: [facility] [employer] [facility] 09-20-2023 08:23-0500 Body weight 57.06 kg Jacob Zhang APRN-SALES COORDINATOR Work Phone: [facility] 09-20-2023 08:23-0500 Diastolic blood pressure 70 mm[Hg] Jacob Zhang APRN-SALES COORDINATOR Work Phone: [facility] 09-20-2023 08:23-0500 Heart rate 91 /min Jacob Zhang APRN-SALES COORDINATOR Work Phone: [facility] 09-20-2023 08:23-0500 SaO2% (BldA) [Mass fraction] 99 % Jacob Zhang APRN-SALES COORDINATOR Work Phone: [facility] 09-20-2023 08:23-0500 Systolic blood pressure 120 mm[Hg] Jacob Zhang APRNCLAIR Work Phone: [facility] Encounters Encounter Date Encounter Type Care Provider Facility Start: 01-26-2024 End: 01-26-2024 ambulatory [facility] Start: 01-25-2024 End: 01-25-2024 ambulatory [facility] Start: 12-28-2023 End: 12-29-2023 ambulatory [facility] Start: 12-28-2023 End: 12-28-2023 ambulatory [facility] Start: 09-20-2023 End: 09-20-2023 ambulatory [facility] Start: 09-20-2023 End: 09-20-2023 Office outpatient visit 25 minutes Jacob Zhang APRN-SALES COORDINATOR Work Phone: [facility] Comment on above: Essential hypertensi on (Primary Dx); Major depressive disorder with single episode, in partial remission (CMS-HCC); Fibromyalgia affecting multiple sites; Acquired hypothyroidism; Mixed hyperlipidemia; Chronic pain syndrome Start: 08-31-2023 Telephone encounter Shari Daly CM A [facility] Comment on above: Med Refill Start: 02-05-2020 Patient encounter procedure Shari Daly TELESCOPE MAINTENANCE [facility] Start: 09-15-2017 End: 02-09-2018 Physical examination Shari Daly [employer]ES[employer] MAINTENA[employer] [facility] Procedures Date Procedure Procedure Detail Performing Clinician Start: 09-20-2023 Adult depression screening assessment Jacob Zhang ASSEMBLY REPAIRER-SALES COORDINATOR Work Phone: Start: 06-16-2023 Adult depression screening assessment Shari Daly [employer]ES[employer] MAINTENANCE Start: 10-06-2022 Mammography Shari Daly [employer] MAINTENANCE Start: 08-24-2018 History of excision of lamina of lumbar vertebra for decompression of spinal cord Hx of decompressive lumbar laminectomy Shari Daly TELESCOPE MAINTENANCE Start: 09-19-2017 Colonoscopy Shari Daly TELESCOPE MAINTENANCE Plan of Treatment Date Care Activity Detail Author Start: 09-19-2027 Screening for malignant neoplasm of colon Colonoscopy [facility] Start: 12-15-2024 Tobacco Counseling Tobacco Counseling [facility] Start: 09-20-2024 Adult BMI Screening Adult BMI Screening [facility] Start: 09-20-2024 Depression Screening Depression Screening [facility] Start: 09-20-2024 Fall Risk Screening Fall Risk Screening [facility] Start: 09-20-2024 Tobacco Screening Tobacco Screening [facility] Start: 06-16-2024 Adult BMI Screening Adult BMI Screening [facility] Start: 06-16-2024 Depression Screening Depression Screening [facility] Start: 06-16-2024 Fall Risk Screening Fall Risk Screening [facility] Start: 06-16-2024 Tobacco Screening Tobacco Screening [facility] Start: 03-17-2024 Medicare Annual Wellness Visit Medicare Annual Wellness Visit [facility] Start: 12-28-2023 End: 12-28-2023 Patient encounter procedure 12/28/2023 10:00 AM EDT Office Visit [facility] [address] [place] [address] Jacob Zhang ASSEMBLY REPAIRER-SALES COORDINATOR [address] [place] [address] [facility] Start: 10-06-2023 Screening for malignant neoplasm of breast Mammogram [facility] Start: 09-20-2023 End: 09-20-2023 Patient encounter procedure 09/20/2023 8:30 AM EST Office Visit [facility] [address] [place] [id number] Jacob Zhang, ASSEMBLY REPAIRER-SALES COORDINATOR [address] [place] [address] [facility] Start: 2007 Administration of varicella zoster vaccine Zoster (Shingles) Vaccine (1 of 2) [facility] Immunizations Immunization Date Immunization Notes Care Provider Fa cility 05-11-2019 influenza virus vaccine, unspecified formulation Shari Daly [facility] 05-11-2019 influenza, injectabl e, quadrivalent, preservative free Shari Daly [facility] Work Phone: 09-15-2017 influenza, injectabl e, quadrivalent, preservative free Shari Daly [facility] Payers Date Payer Category Payer Medicare ANTHEM MEDICARE ANTHEM MEDICARE ADVANTAGE [id number] 2017-Present [phone] [address] [place] [address] [id number] 2017 Medicare [id number] 1955 Unknown [id number] 1955 Unknown [id number] 1955 Unknown [id number] 6 1955 Unknown [id number] 6 1955 Unknown [id number] Social History Date Type Detail Facility Start: 03-17-2023 Tobacco smoking status NHIS Smokes tobacco daily [facility] History of tobacco use Cigarette Smoker P [facility] Start: 06-07-2021 End: 03-17-2023 Cigarettes smoked current (pack per day) - Reported 0.5 [facility] Start: 03-17-2023 Tobacco use and exposure Smokeless tobacco non-user [facility] Start: 06-16-2023 End: 09-20-2023 Alcohol intake Current non-drinker of alcohol (finding) [facility] Start: 06-07-2021 End: 09-20-2023 Social connection and isolation panel [facility] Do you belong to any clubs or organizations such as anglican groups, unions, fraternal or athletic groups, or school groups? No [facility] Are you now , , , , never or living with a partner? [facility] How often to you hav e a drink containing alcohol? Never [facility] How many standard dr inks containing alcohol do you have on a typical day? 1 or 2 [facility] How hard is it for y ou to pay for the very basics like food, housing, medical care, and heating Not very hard [facility] Adolescent depressio n screening assessment 0 [facility] Do you feel stress - tense, restless, nervous, or anxious, or unable to sleep at night because your mind is troubled all the time - these days [OSQ] Not at all [facility] Start: 04-08-2021 Education 14 [facility] Start: 1955 Sex Assigned At Female [facility] Start: 10-15-2021 Gender identity Identifies as female gender (finding) [facility] Start: 10-15-2021 Sexual orientation Heterosexual (finding) [facility] History of Present illness Narrative 09-20-2023 Jacob Zhang, ASSEMBLY REPAIRER-SALES COORDINATOR - 09/20/2023 8:30 AM EST Note Date & Type Note Facility 09-20-2023 History of Present illness Narrative Images from the original note were not included. [address] [place] [address] SUBJECTIVE: Patient ID: Funmilayo Ocampo is a 68 y.o. female. Chief Complaint Patient presents with Depression Funmilayo presents for follow up today States her moods have been overall stable Offers no complaints today Depression Visit: Follow-up Initial visit: Symptoms: no chest pain, no palpitations and no shortness of breath PMH includes: back pain Follow-up visit: Symptoms: depressed mood Symptoms: no chest pain, not nervous/anxious, no panic and no shortness of breath Frequency: Occasionally Severity: Mild Current Treatment: Non-SSRI antidepressants Response to treatment: Improving Sleep quality: Good Compliance with medications: 76-100% Hypothyroidism Presents for follow-up visit. Patient reports no cold intolerance, hair loss, menstrual problem, palpitations, tremors or weight loss. The symptoms have been stable. Anemia Presents for follow-up visit. There has been no bruising/bleeding easily, fever, pallor, palpitations, pica or weight loss. Past medical history includes hypothyroidism. There are no compliance problems. Hypertension This is a chronic problem. The current episode started more than 1 year ago. The problem has been gradually improving since onset. Pertinent negatives include no chest pain, palpitations or shortness of breath. Agents associated with hypertension include thyroid hormones. Risk factors for coronary artery disease include dyslipidemia and post-menopausal state. Past treatments include beta blockers and diuretics. The current treatment provides significant improvement. There are no compliance problems. The following portions of the patient's history were reviewed and updated as appropriate: allergies, current medications, past family history, past medical history, past social history, past surgical history and problem list. Past Surgical History: Procedure Laterality Date APPENDECTOMY BACK SURGERY 1988 disc removed l4-s1 and laminectomy CARPAL TUNNEL RELEASE CHOLECYSTECTOMY COLONOSCOPY 12/2016,03/2007 COLONOSCOPY N/A 09/19/2017 Performed by Mayur Walter DO at [facility] HYSTERECTOMY OOPHORECTOMY Past Medical History: Diagnosis Date Anxiety Depression Fibromyalgia GERD (gastroesophageal reflux disease) History of lumbar laminectomy 08/24/2018 L4, L5, S1 Hypertension IBS (irritable bowel syndrome) Migraine Vitamin D deficiency Immunization History Administered Date(s) Administered Influenza, Injectable, quadrivalent (PF) 09/15/2017, 05/11/2019 Influenza, Unspecified 05/11/2019 REVIEW OF SYSTEMS: Review of Systems Constitutional: Negative for chills and fever. HENT: Negative. Eyes: Negative for visual disturbance. Respiratory: Negative for chest tightness. Gastrointestinal: Negative. Endocrine: Negative. Genitourinary: Negative for menstrual problem and pelvic pain. Musculoskeletal: Positive for arthralgias and myalgias. Skin: Negative. Allergic/Immunologic: Negative. Neurological: Negative for syncope and facial asymmetry. Hematological: Does not bruise/bleed easily. Psychiatric/Behavioral: Negative. PHYSICAL EXAMINATION: Vitals: 09/20/23 0823 BP: 120/70 BP Site: Left Arm BP Postition: Sitting Pulse: 91 Temp: 36.6 C (97.9 F) TempSrc: Tympanic SpO2: 99% Weight: 57.1 kg (125 lb 12.8 oz) Height: 167.6 cm (5' 6 ) Physical Exam Vitals and nursing note reviewed. Constitutional: General: She is not in acute distress. Appearance: She is well-developed. She is not diaphoretic. HENT: Head: Normocephalic and atraumatic. Right Ear: Tympanic membrane and external ear normal. Left Ear: Tympanic membrane and external ear normal. Nose: Nose normal. Mouth/Throat: Mouth: Mucous membranes are moist. Pharynx: No oropharyngeal exudate. Eyes: General: Right eye: No discharge. Left eye: No discharge. Conjunctiva/sclera: Conjunctivae normal. Pupils: Pupils are equal, round, and reactive to light. Neck: Thyroid: No thyromegaly. Vascular: No JVD. Cardiovascular: Rate and Rhythm: Normal rate and regular rhythm. Heart sounds: Normal heart sounds. No murmur heard. No friction rub. No gallop. Pulmonary: Effort: Pulmonary effort is normal. Breath sounds: Normal breath sounds. Abdominal: General: Bowel sounds are normal. There is no distension. Palpations: Abdomen is soft. There is no mass. Tenderness: There is no abdominal tenderness. Musculoskeletal: General: Normal range of motion. Cervical back: Normal range of motion and neck supple. Lymphadenopathy: Cervical: No cervical adenopathy. Skin: General: Skin is warm and dry. Capillary Refill: Capillary refill takes less than 2 seconds. Neurological: Mental Status: She is alert and oriented to person, place, and time. Deep Tendon Reflexes: Reflexes are normal and symmetric. Psychiatric: Mood and Affect: Mood normal. Behavior: Behavior normal. Thought Content: Thought content normal. Judgment: Judgment normal. ASSESSMENT/PLAN: Funmilayo was seen today for depression. Diagnoses and all orders for this visit: Major depressive disorder with single episode, in partial remission ([facility]-HCC) - venlafaxine XR (EFFEXOR-XR) 150 mg 24 hr capsule; take 1 capsule by mouth daily ALONG WITH 150 MG FOR A TOTAL DOSE OF 225 MG Strength: 150 mg - venlafaxine XR (EFFEXOR XR) 75 mg 24 hr capsule; Take 1 capsule (75 mg total) by mouth in the morning. Fibromyalgia affecting multiple sites - Discontinue: gabapentin (NEURONTIN) 300 mg capsule; Once daily at HS - Discontinue: gabapentin (NEURONTIN) 300 mg capsule; Once daily at HS - gabapentin (NEURONTIN) 300 mg capsule; Once daily at HS - HYDROcodone-acetaminophen (NORCO) 5-325 mg per tablet; Take 1 tablet by mouth every 8 (eight) hours as needed for pain for up to 30 days. Max Daily Amount: 3 tablets Essential hypertension - bisoprolol-hydroCHLOROthiazide (ZIAC) 5-6.25 mg per tablet; Take 1 tablet by mouth in the morning. Acquired hypothyroidism - levothyroxine (SYNTHROID, LEVOTHROID) 100 MCG tablet; Take 1 tablet (100 mcg total) by mouth in the morning. Mixed hyperlipidemia - simvastatin (ZOCOR) 5 mg tablet; Take 1 tablet (5 mg total) by mouth nightly. Depression: Not at risk (09/20/2023) PHQ-2 PHQ-2 Score: 0 Moods have been overall stable Continue Effexor XR 225 mg daily Hypothyroidism Continued levothyroxine 100 mcg daily Low back pain Fibromyalgia Currently on Gabapentin 300 mg daily at HS Reorder [place] 5/325 mg oral every 12 hours PRN pain. #45 tablets no refills. Last fill 06/16/23 Contract is up to date 03/17/23 The OARRS/MAPPS database was reviewed today and found to be appropriate. No indication of medication diversion, or non compliance. Hypertension Controlled Continue on bisoprolol-hydrochlorothiazide 5-6.25 mg daily Mixed hyperlipidemia Continue simvastatin Patient is a current smoker, smoking cessation discussed today in office. He/She is not interested at this time ALL QUESTIONS ANSWERED Total time spent was 30 minutes: Preparing to see the patient (e.g., review of tests) Obtaining and/or reviewing separately obtained history Performing a medically appropriate examination and/or evaluation Counseling and educating the patient/family/caregiver Ordering medications, tests, or procedures Follow-up: 3 months LAYTON Bains 09/20/23 0916 documented in this encounter [facility] Instructions 09-20-2023 Patient InstructionsAttachments Note Date & Type Note Facility 09-20-2023 Instructions LAYTON Bains - 09/20/2023 8:30 AM EST Are You Ready To Kick The Habit? Free Tobacco Cessation Resources [facility] provide all employees with free tobacco cessation services that include: Counseling to understand nicotine addiction Education about medications that can help you successfully quit Assistance with developing a plan to quit Call to set up an individual appointment or find out when group classes will be held: [facility]: [phone] [facility]: [phone] [facility]: [phone] [facility]: [phone] Quit Smoking Action Plan and Resources [facility] offers an eight-week, online smoking cessation plan to all [facility] employees, regardless of whether [place] is your medical insurance provider. Go to www.Attentive.lymedica.org/employeewellness and click the Health Risk Assessment and Resources link to get started. In the Jorxq7Twlrif menu, click Action Plans instead of Health Risk Assessment to access the Quit Smoking Action Plan. Additional smoking cessation resources are also available to all [facility] employees on the Aaqjz4Awzsfz web page at [email or web address].Picolight/[place] hope. [place] Tobacco Cessation Program If [place] is your medical insurance provider, there are more free resources available to you, including: No copays or deductibles on local tobacco cessation counseling services to help you quit Prescription assistance for tobacco cessation medications to help you quit For details about the tobacco cessation program available to [place] members, go to www.ZeroCater.Picolight (Search: Tobacco Cessation Program). [place] Tobacco Quit Line 7-405-UBFY-NOW ( ) is a toll-free, telephonic service that helps [place] residents quit smoking and using tobacco. It is staffed by experts who tailor a quit plan for you and provide you with advice. [place] Tobacco Quit Line 2-938-ZHDA-NOW ( ) is a toll-free, telephonic service that helps [place] residents quit smoking and using tobacco. It is staffed by experts who tailor a quit plan for you and provide you with advice. Two weeks of nicotine replacement therapy may be provided at no charge, if needed. Additional Resources These national organizations also offer free information and resources to help you quit tobacco: [place] [employer]--www.cancer.org/healthy/staya wayfromtobacco [place] [employer]--www.heart.org (Search: Quit Smoking) Centers for Disease Control and Prevention--www.cdc.gov/tobacco [place] [employer]--www.lungusa.org The following attachments cannot be sent through Care Everywhere.Anxiety Discharge Instructions, Adult (Setswana)documented in this encounter [facility] Note 08-31-2023 Telephone Encounter - Shari Kauffman CMA - 08/31/2023 11:21 AM ESTTelephone Encounter - LAYTON Bains - 08/31/2023 11:21 AM EST Note Date & Type Note Facility 08-31-2023 Miscellaneous Notes Formattin g of this note might be different from the original. Pt called wanting a Rx for prednisone, I called her back asked her what was going on she stated she take It for body aches, I said you may want to see her for you to prescribe it she said not to worry about it then she will see you in a few weeks at her appointment ? 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, [facility] Telephone encounter Note 08-31-2023 Telephone Encounter - Shari Kauffman CMA - 08/31/2023 11:21 AM EST Note Date & Type Note Facility 08-31-2023 Telephone encount er Note Called pt left vm [facility] Evaluation note Note Date & Type Note Facility Evaluation note Diagnosis Fibromyalgia affecting multiple sites- Primary Chronic bilateral low back pain with sciatica, sciatica laterality unspecified documented in this encounter [facility] Evaluation note Note Date & Type Note Facility Evaluation note Diagnosis Essential hypertension- Primary Unspecified essential hypertension Major depressive disorder with single episode, in partial remission ([facility]-H[facility]) Fibromyalgia affecting multiple sites Acquired hypothyroidism Unspecified hypothyroidism Mixed hyperlipidemia Chronic pain syndrome documented in this encounter [facility] Instructions Note Date & Type Note Facility Instructions Not on filedocumented in this en counter [facility] Advance Directives No Advanced Directives Records FoundDocuments on File Type Date Recorded Patient Pillowcase Sewer Expl anation Advance Directive 10/06/2017 9:36 AM ABN 10/06/17 Documents on File Type Date Recorded Patient Pillowcase Sewer Expl anation Advance Directive 10/06/2017 9:36 AM ABN 10/06/17 Reason for Referral Specialty Diagnoses / Procedures Referred By Martita duke Referred To Contact Diagnoses Fibromyalgia affecting multiple sites Jacob Zhang APRN-CNP [address] [place] [address] Referral ID Status Reason Start Date Expiration Date V isits Requested Visits Authorized [id number] Pending Review 1 1 Summary Purpose Family History No Family History Records FoundNo Family History Records Found Additional Source Comments Reason for Visit (unrecogniz ed section and content) Reason Onset Date Comments Med Refill 08/31/2023 Reason Comments Depression Care Teams (unrecognized sec tion and content) Design Studio Consultant Relationship Specialty Start Date End Date Jacob Zhang APRN-CNP [address] [place] [address] PCP - General Family Medicine 09/09/17 Design Studio Consultant Relationship Specialty Start Date End Date Jacob Zhang APRN-CNP [address] [place] [address] PCP - General Family Medicine 09/09/17 INFORMATION SOURCE (unrecogn ized section and content) DATE CREATED AUTHOR 01/26/2024 [facility] DATE CREATED AUTHOR AUTHOR'S ORGANIZ ATION 01/27/2024 [facility] FOR RECORDS PERTAINING TO PATIENTS WHO ARE OR HAVE BEEN ENROLLED IN A CHEMICAL DEPENDENCY/SUBSTANCEABUSE PROGRAM, SOME INFORMATION MAY BE OMITTED. This clinical summary was aggregated from multiple sources. Caution should be exercised in using it in the provision of clinical care. This summary normalizes information from multiple sources, and as a consequence, information in this document may materially change the coding, format and clinical context of patient data. In addition, data may be omitted in some cases. CLINICAL DECISIONS SHOULD BE BASED ON THE PRIMARY CLINICAL RECORDS. [employer] [facility] [employer], [facility]. provides no warranty or guarantee of the accuracy or completeness of information in this document.
[2024-01-27] MEDS: VENLAFAXINE HCL ER 150 MG CAPSULE PO (09:34)
[2024-01-27] MEDS: MAGNESIUM SULFATE IN WATER 2 GM/50 ML PREMIX IV (09:34)
--- NOTE | 2024-01-27 10:19 | P.HP_ITS ---
<Statement entered by Shaikh Marilin MD - 01/27/24 13:00> This documentation has been reviewed and approved. Patient seen and examined. Case discussed with case management, patient's nurse and hospice nurse practitioner. Agree with clinical documentation, treatment plan. Exam: Sitting in bed, comfortable. Normal respiratory rate. Clear to auscultation bilaterally. Normal heart rate, no murmurs. Assessment and plan: Multifocal pneumonia Hyponatremia Leukocytosis Hypertension Patient is doing significantly better today. On room air. Denies shortness of breath, cough. Stable for discharge on oral Levaquin. Follow-up with PCP in 1 to 2 weeks. HPI H&P: HPI History of Present Illness Chief complaint: ABNORMAL LAB VALUE Multfocal pneumonia weakness Narrative: 01/27/24 0925 This is a 68-year-old female patient with a past medical history as outlined below including daily tobacco use, hyperlipidemia, depression, and hypothyroidism; who presented to the ED yesterday evening on the advice of her PCP due to abnormal outpatient lab results. The patient was seen by her PCP earlier this week complaining of a 7 to 10-day course of increased fatigue and malaise. She admits to mild shortness of breath but associates that more with fatigue and activity intolerance. She also noted a strong odor to her urine but denies any dysuria or urinary frequency. She was experiencing right distal, posterior rib pain with deep inspiration as well. A UA performed in her PCP office was positive and she was started on Macrobid and steroid burst, and was sent for outpatient lab work. These resulted with significantly elevated WBCs and electrolyte disturbances and she was sent to the ED for further evaluation. Workup in the ED revealed mild intermittent tachypnea (18 to 24 bpm), no evidence of hypoxia, leukocytosis (21.4), hyponatremia (128), hypokalemia (3.0), hypomagnesemia (1.5), hyperglycemia (156), and mild liver study abnormalities (AST 56, alk phos 258, bili and ALT WNL). A repeat UA revealed nitrites, but no evidence of bacteria or pyuria. A respiratory panel was also negative. A Chest x-ray was reported with suspected pulmonary edema by radiology, but the ED provider felt infiltrate was more likely. CT of the abdomen and pelvis was mostly unremarkable but did note bilateral patchy parenchymal infiltrates with central predominance and a CT scan of the chest was recommended. CTA of the chest was performed and revealed no evidence of PE, but multifocal pneumonia was identified. The patient was admitted as an inpatient to the hospitalist service yesterday evening for multifocal pneumonia and electrolyte disturbances. At the time of my exam the patient is sitting up in her bed. She reports feeling better . She denies any shortness of breath and remains stable on room air. She continues to note some fatigue but feels improved since receiving IV fluids and KCl last night. Her pleuritic posterior right chest wall pain has resolved even with deep inspiration. She denies any dysuria or foul odor with her urine since arrival in the ED. The patient is requesting to be discharged home. Her magnesium will be repleted this morning. We will likely repeat labs later today and consider discharge pending clinical course. In absence of hypoxia, dyspnea, or fever, the patient's admission has been changed to observation status. Opioid HPI Opioid Management Most Recent Opioid Data: Last Pain Scale 2 01/27/24 06:04 Last Pain Assessment 01/27/24 11:00 Last MAR Pain Assessment 01/27/24 05:50 Last ORT Total Score 2 01/26/24 19:59 Last ORT Risk Category Low Risk 01/26/24 19:59 Review of Systems ROS Status of ROS 10 or more systems reviewed and unremark able except as noted in history and below [facility] Medical History (Updated 01/27/24 @ 11:37 by Stephanie Malcolm NP) HTN (hypertension) ?I10 - Essential (primary) hypertension (ICD-10) Depression ?F32.A - Depression, unspecified (ICD-10) Hyperlipidemia ?E78.5 - Hyperlipidemia, unspecified (ICD-10) Hypothyroidism ?E03.9 - Hypothyroidism, unspecified (ICD-10) Tobacco dependence ?F17.200 - Nicotine dependence, unspecified, uncomplicated (ICD-10) Social History Highest level of school completed/degree received: high school graduate Do you think of yourself as: straight/heterosexual Gender Identity: female Meds Home Medications and Allergies Home Medications ?Medication ?Instructions ?Recorded ?Confirmed ?Type bisoprolol 5 1 tab PO DAILY 01/26/24 01/26/24 History mg-hydrochlorothiazide 6.25 mg tablet gabapentin 300 mg capsule 300 mg PO Q12H 01/26/24 01/26/24 History hydrocodone 5 mg-acetaminophen 325 1 tab PO Q6H PRN pain 01/26/24 01/26/24 History mg tablet levothyroxine 100 mcg tablet 100 mcg PO DAILY 01/26/24 01/26/24 History (Synthroid) nitrofurantoin 100 mg PO Q12H 01/26/24 01/26/24 History monohydrate/macrocrystals 100 mg capsule prednisone 20 mg tablet 20 mg PO Q12H 01/26/24 01/26/24 History simvastatin 5 mg tablet 5 mg PO DAILY 01/26/24 01/26/24 History venlafaxine 150 mg 150 mg PO DAILY 01/26/24 01/26/24 History capsule,extended release 24 hr Allergies Allergy/AdvReac Type Severity Reaction Status Date / Time No Known Drug Allergies Allergy Verified 01/26/24 14:14 Exam Constitutional Vital Signs, click to edit/add: Last Vital Signs Temp 97.6 F 01/27/24 08:00 Pulse 69 01/27/24 10:00 Resp 18 01/27/24 08:00 BP 153/81 H 01/27/24 08:00 Pulse Ox 92 L 01/27/24 08:00 O2 Del Method Room Air 01/27/24 08:00 Common normals: no apparent distress, oriented x3, alert and well nourished General appearance: cooperative Orientation/consciousness: Yes awake [facility] Common normals: normocephalic, head/scalp atraumatic, hearing grossly normal bilaterally, external nose normal and moist oral mucous membranes Eye Common normals: PERRL, EOMs intact bilaterally, conjunctivae normal and no scleral icterus Alignment: alignment normal Eyelid: eyelids normal Neck & C-Spine Common normals: full ROM, supple and no JVD Chest Common normals: inspection of chest normal Chest: symmetrical chest wall rise Respiratory Common normals: normal respiratory effort, no retractions and no use of accessory muscles Effort & inspection: able to speak in complete sentences Auscultation: wheezes (Faint LLL EE) Cardio Common normals: no JVD, regular rate, regular rhythm, S1 normal heart sound, S2 normal heart sound, no gallops, no clicks, no murmurs, no rub and peripheral pulses 2+ throughout GI Common normals: Normal to inspection, nondistended, normoactive bowel sounds present, soft to palpation, non-tender, no hepatosplenomegaly, no masses and no bruits Bladder/kidney exam: bladder normal to palpation Back & Pelvis Common normals: thoracic and lumbar spine normal to inspection Extremity Common normals: normal capillary refill and no pedal edema General: normal exam except as noted; no clubbing and no cyanosis Neuro [place] Coma Scale: GCS not evaluated Common normals: CN's II-XII intact bilaterally, moves all extremities, no focal motor deficits and no sensory deficits noted Speech: speech normal Motor exam: strength 5/5 throughout Psych Common normals: mental status grossly normal, thought process normal, affect normal and activity/motor behavior normal Results Labs Labs: Short CBC 01/26/24 01/27/24 Range/Units 14:34 05:26 WBC 21.4 H 13.9 H (4.0-11.0) 10^3/uL Hgb 10.9 L 10.5 L (12.0-16.0) g/dL Hct 33.0 L 32.6 L (36.0-48.0) % Plt Count 679 H 637 H (150-450) 10^3/uL BMP 01/26/24 01/27/24 14:34 05:26 Sodium 128 L 132 L Potassium 3.0 L 3.5 Chloride 89 L 96 L Carbon Dioxide 27.5 26.1 BUN 7.0 11.0 Creatinine 0.78 0.84 Glucose 156 H 134 H Calcium 8.8 8.4 L Liver Function 01/26/24 01/27/24 Range/Units 14:34 05:26 Total Bilirubin 0.4 0.2 (0.2-1.0) mg/dL AST 56 H 44 H (15-37) U/L ALT 35 32 (14-59) U/L Alkaline Phosphatase 258 H 220 H (46-116) U/L Albumin 2.2 L 2.0 L (3.4-5.0) g/dL Urine 01/26/24 Range/Units 15:10 Urine Color Yellow (YELLOW) Urine Clarity Clear (CLEAR) Urine pH 7.0 (5.0-9.0) Ur Specific [place] 1.010 (1.005-1.025) Urine Protein Negative (NEG/TRACE) mg/dL Urine Glucose (UA) Negative (NEGATIVE) mg/dL ABG ABG results: 01/26/24 01/27/24 14:37 05:26 VBG pH 7.423 7.456 H VBG pCO2 43.7 35.8 L Pulse Oximetry Attestation: I have reviewed the pertinent pulse oximetry results. Imaging Chest x-ray: Attestation: I have reviewed the pertinent imaging results. Radiologist's impression: IMPRESSION: Suspected pulmonary edema CT scan - abdomen: Attestation: I have reviewed the pertinent imaging results. Radiologist's impression: IMPRESSION: Bilateral patchy parenchymal infiltrates with a central predominance. CT scan of the chest recommended for further evaluation Moderate amount of stool in the cecum No obstructive uropathy CTA Chest: Attestation: I have reviewed the pertinent imaging results. Radiologist's impression: IMPRESSION:No evidence of pulmonary embolus. Multifocal pneumonia as described above. Small hiatal hernia. Assessment and Plan Assessment and Plan (1) Multifocal pneumonia: Assessment and Plan: Acute * Adm observation * CT imaging confirms multifocal pneumonia * No fever, hypoxia or dyspnea on exam * Continue IVPB Levaquin as initiated in the ED * Plan to DC on Levaquin PO to complete a 7 day course * Guaifenesin BID and OPEP for sputum mobilization * CBC daily while in hospital (2) Electrolyte disturbance: Assessment and Plan: Acute * Na 128, K+ 3.0, Mag 1.5 in the ED * Suspect 2/2 home HCTZ administration - Hold for now * Likely d/c at discharge and continue bisoprolol alone * Hyponatremia * NS IVF bolus plus maintenance IVF at 125/hr overnight * Na improved to 132 today - nearly resolved * Hypokalemia * KCL 40 mEq PO given in ED last night * K+ 3.5 on AM labs today - resolved * Hypomagnesemia * IVPB Mag Sulfate 2gm now * Repeat BMP, Mag levels at 1300 and replete further if needed (3) Fatigue: Assessment and Plan: Acute * Likely multifactorial d/t acute multifocal pneumonia and concurrent electrolyte disturbances * See above (4) Leukocytosis: Assessment and Plan: Acute * Profound leukocytosis out of proportion to the pt's clinical presentation - WBC 21.4 in ED * Improving rapidly - WBC 13.9 on AM labs today * Likely 2/2 multifocal pneumonia - see above (5) Tobacco dependence: Assessment and Plan: Chronic * Encouraged complete tobacco cessation - pt verbalizes intention to try quitting. Discussed strategies for success - she will follow up with her PCP (6) Hypothyroidism: Assessment and Plan: Chronic * Continue home levothyroxine * Check TSH w/ reflex FT4 for therapeutic status * Possible contributor to pt's fatigue (7) Hyperlipidemia: Assessment and Plan: Chronic * Continue home statin (8) Depression: Assessment and Plan: Chronic * Continue home venlafaxine (9) HTN (hypertension): Assessment and Plan: Chronic * Hold home bisoprolol/HCTZ for now d/t electrolyte disturbances * PRN Hydralazine IVP for HTN
[2024-01-27 11:24] LABS: TSH W/ REFLEX FT4 1.188 uIU/mL (0.358-3.740)
[2024-01-27] MEDS: GUAIFENESIN 600 MG TAB.ER.12H PO (11:38)
--- OUTSIDE RECORDS SUMMARY | 2024-01-27 12:04 | XMS_ITS | CCD ---
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; 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: [FDC (current) use of opiate analgesic] Onset: 4 [...] 01-25-20 ABSOLUTE BASOPHIL 0.2 X10E9/L Normal 0.0-0.2 [facility] Comment on above: Performed By: #### C BCA, CMP, FEPR, 3016-3, 2276-4, 2132-9 #### [facility] ([id number]) [address], [address] [place] [address] Band form neutrophils/100 WBC (Bld) 4.0 % Normal [facility] Comment on above: Performed By: #### C BCA, CMP, FEPR, 3016-3, 6-4, 2132-04 #### [facility] ([id number]) [address], [facility] [address] [place] [address] Basophils/100 WBC (Bld) 1.0 % Normal [facility] Comment on above: Performed By: #### C BCA, CMP, FEPR, 3016-3, 6-4, 2132-04 #### [facility] ([id number]) [address], [facility] [address] [place] [address] STEVE 1+ Abnormal NONE [facility] Comment on above: Performed By: #### C BCA, CMP, FEPR, 6-3, 2275-4, 2132-04 #### [facility] ([id number]) [address], [facility] [address] [place] [address] Erythrocyte distribution width (RBC) [Ratio] 14.6 % Normal 11.5-15.0 [facility] Comment on above: Performed By: #### C BCA, CMP, FEPR, 3016-3, 6-4, 2132-04 #### [facility] ([id number]) [address] [address] Hematocrit (Bld) [Volume fraction] 36.9 % Normal 35-47 [facility] Comment on above: Performed By: #### C BCA, CMP, FEPR, 3016-3, 6-4, 2132-04 #### [facility] ([id number]) [address] [address] [place] [address] Hemoglobin (Bld) [Mass/Vol] 12.1 g/dL Normal 11.7-15.5 [facility] Comment on above: Performed By: #### C BCA, CMP, FEPR, 3016-3, 2276-4, 2132-04 #### [facility] ([id number]) [address], [address] [place] [address] Lymphocytes (Bld) [#/Vol] 3.0 10*3/uL Normal 1.0-3.5 [facility] Comment on above: Performed By: #### C BCA, CMP, FEPR, 3016-3, 2275-4, 2132-04 #### [facility] ([id number]) [address], [address] [place] [address] Lymphocytes/100 WBC (Bld) 15.0 % Normal [facility] Comment on above: Performed By: #### C BCA, CMP, FEPR, 3016-3, 2275-4, 2132-04 #### [facility] ([id number]) [address], [address] [place] [address] MCH (RBC) [Entitic mass] 26.4 pg Low 27-34 [facility] Comment on above: Performed By: #### C BCA, CMP, FEPR, 3016-3, 2275-4, 2132-04 #### [facility] ([id number]) [address], [address] [place] [address] MCHC (RBC) [Mass/Vol] 32.8 g/dL Normal 32-36 [facility] Comment on above: Performed By: #### C BCA, CMP, FEPR, 3016-3, 6-4, 2132-04 #### [facility] ([id number]) [address], [address] [place] [address] MCV (RBC) [Entitic vol] 81 fL Normal 80-100 [facility] Comment on above: Performed By: #### C BCA, CMP, FEPR, 3016-3, 2276-4, 2132-04 #### [facility] ([id number]) [address], [address] [place] [address] Metamyelocytes/100 WBC (Bld) 2.0 % Normal [facility] Comment on above: Performed By: #### C BCA, CMP, FEPR, 6-3, 2275-4, 2132-04 #### [facility] ([id number]) [address], [address] [place] [address] Monocytes (Bld) [#/Vol] 1.2 10*3/uL High 0-0.9 [facility] Comment on above: Performed By: #### C BCA, CMP, FEPR, 3015-3, 2275-11, 2132-04 #### [facility] ([id number]) [address], [address] [place] [address] Monocytes/100 WBC (Bld) 6.0 % Normal [facility] Comment on above: Performed By: #### C BCA, CMP, FEPR, 3015-3, 2275-11, 2132-04 #### [facility] ([id number]) [address], [address] [place] [address] Neutrophils (Bld) [#/Vol] 15.1 10*3/uL High 1.5-6.6 [facility] Comment on above: Performed By: #### C BCA, CMP, FEPR, 3015-3, 2275-11, 2132-04 #### [facility] ([id number]) [address], [address] [place] [address] Platelet mean volume (Bld) [Entitic vol] 7.9 fL Normal 7-12 [facility] Comment on above: Performed By: #### C BCA, CMP, FEPR, 3015-3, 2275-, 2132-04 #### [facility] ([id number]) [address], [address] [place] [address] Platelets (Bld) [#/Vol] 789 10*3/uL High 150-450 [facility] Comment on above: Performed By: #### C BCA, CMP, FEPR, 3016-3, 6-4, 2132-04 #### [facility] ([id number]) [address], [address] [place] [address] RBC COUNT 4.58 X10E12/L Normal 3.80-5.20 [facility] Comment on above: Performed By: #### C BCA, CMP, FEPR, 3016-3, 2275-4, 2132-04 #### [facility] ([id number]) [address], [address] [place] [address] SEG NEUTROPHIL 72.0 % Normal [facility] Comment on above: Performed By: #### C BCA, CMP, FEPR, 3015-3, 2275-4, 2132-04 #### [facility] ([id number]) [address], [address] [place] [address] WBC (Bld) [#/Vol] 19.9 10*3/uL High 4.0-11.0 [facility] Comment on above: Performed By: #### C BCA, CMP, FEPR, 6-3, 2275-4, 2132-04 #### [facility] ([id number]) [address], [address] [place] [address] COMPREHENSIVE METABOLIC PANE [place] 01-25-2024 Albumin [Mass/Vol] 3.6 g/dL Normal 3.2-5.3 [facility] Comment on above: Performed By: #### C BCA, CMP, FEPR, 3016-3, 2275-4, 2132-04 #### [facility] ([id number]) [address], [address] [place] [address] ALP [Catalytic activity/Vol] 204 U/L High 39-130 [facility] Comment on above: Performed By: #### C BCA, CMP, FEPR, 3016-3, 6-4, 2132-04 #### [facility] ([id number]) [address], [address] [place] [address] ALT [Catalytic activity/Vol] 29 U/L Normal 0-31 [facility] Comment on above: Performed By: #### C BCA, CMP, FEPR, 3016-3, 2276-4, 2132-04 #### [facility] ([id number]) [address] [place] [address] Anion gap [Moles/Vol] 14 mmol/L Normal 5-15 [facility] Comment on above: Performed By: #### C BCA, CMP, FEPR, 3016-3, 2275-4, 2132-04 #### [facility] ([id number]) [address], [address] [place] [address] AST [Catalytic activity/Vol] 53 U/L High 0-41 [facility] Comment on above: Performed By: #### C BCA, CMP, FEPR, 3016-3, 2275-4, 2132-04 #### [facility] ([id number]) [address] [place] [address] Bilirubin [Mass/Vol] 0.4 mg/dL Normal 0.3-1.2 [facility] Comment on above: Performed By: #### C BCA, CMP, FEPR, 3016-3, 2276-4, 2132-04 #### [facility] ([id number]) [address], [address] [place] [address] Calcium [Mass/Vol] 9.2 mg/dL Normal 8.5-10.5 [facility] Comment on above: Performed By: #### C BCA, CMP, FEPR, 3016-3, 2276-4, 2132-04 #### [facility] ([id number]) [address], [address] [place] [address] Chloride [Moles/Vol] 86 mmol/L Low 98-109 [facility] Comment on above: Performed By: #### C BCA, CMP, FEPR, 3016-3, 6-4, 2132-04 #### [facility] ([id number]) [address], [address] [place] [address] CO2 [Moles/Vol] 27 mmol/L Normal 22-32 [facility] Comment on above: Performed By: #### C BCA, CMP, FEPR, 3016-3, 2275-4, 2132-04 #### [facility] ([id number]) [address], [facility] [address] [place] [address] Creatinine [Mass/Vol] 0.68 mg/dL Normal 0.40-1.00 [facility] Comment on above: Result Comment: METH OD TRACEABLE TO IDMS STANDARD Performed By: #### C BCA, CMP, FEPR, 6-3, 2275-4, 2132-04 #### [facility] ([id number]) [address], [address] [place] [address] eGFR (CKD-EPI) NON-RACE DEPENDENT >90 Normal >59 [facility] Comment on above: Result Comment: Reported eGFR is based on the CKD-EPI 2020 equation that does not use a race coefficient. Performed By: #### C BCA, CMP, FEPR, 6-3, 2275-4, 2132-04 #### [facility] ([id number]) [address], [address] [place] [address] Glucose [Mass/Vol] 101 mg/dL High 65-99 [facility] Comment on above: Performed By: #### C BCA, CMP, FEPR, 3016-3, 6-4, 2132-04 #### [facility] ([id number]) [address] [address] [place] [address] Potassium [Moles/Vol] 3.1 mmol/L Low 3.5-5.0 [facility] Comment on above: Performed By: #### C BCA, CMP, FEPR, 3016-3, 2276-4, 2132-04 #### [facility] ([id number]) [address], [address] [place] [address] Protein [Mass/Vol] 7.4 g/dL Normal 6.0-8.0 [facility] Comment on above: Performed By: #### C BCA, CMP, FEPR, 3016-3, 2276-4, 2132-04 #### [facility] ([id number]) [address], [address] [place] [address] Sodium [Moles/Vol] 127 mmol/L Low 134-146 [facility] Comment on above: Performed By: #### C BCA, CMP, FEPR, 3016-3, 2275-4, 2132-04 #### [facility] ([id number]) [address], [address] [place] [address] Urea nitrogen [Mass/Vol] 9 mg/dL Normal 5-27 [facility] Comment on above: Performed By: #### C BCA, CMP, FEPR, 3016-3, 2275-4, 2132-04 #### [facility] ([id number]) [address], [address] [place] [address] FERRITINon 01-25-2024 Ferritin [Mass/Vol] 324 ng/mL High 11-307 [facility] Comment on above: Performed By: #### C BCA, CMP, FEPR, 3016-3, 2276-4, 2132-04 #### [facility] ([id number]) [address], [address] [place] [address] IRON PROFILEon 01-25-2024 Iron [Mass/Vol] 24 ug/dL Low 50-170 [facility] Comment on above: Performed By: #### C BCA, CMP, FEPR, 3016-3, 2276-4, 2132-04 #### [facility] ([id number]) [address], [address] [place] [address] IRON BINDING 266 ug/dL Normal 250-425 [facility] Comment on above: Performed By: #### C BCA, CMP, FEPR, 3016-3, 6-4, 2132-04 #### [facility] ([id number]) [address], [address] [place] [address] IRON SATURATION 9 % SATURATION Low 15-50 [facility] Comment on above: Performed By: #### C BCA, CMP, FEPR, 3015-3, 2275-4, 2132-04 #### [facility] ([id number]) [address] [place] [address] TSH Qnon 01-25-2024 TSH 5.23 uIU/mL High 0.49-4.67 [facility] Comment on above: Performed By: #### C BCA, CMP, FEPR, 3015-3, 2275-4, 2132-04 #### [facility] ([id number]) [address] [place] [address] URINE CULTUREon 01-25-2024 Bacteria identified Cx Nom (U) SPECIMEN NOTES URINE RECEIVED WITHOUT PRESERVATIVE CULTURE RESULTS 50,000 to 100,000 ORGANISMS/mL ESCHERICHIA COLI <10,000 ORGANISMS/mL NORMAL URO GENITAL NERIS Normal [facility] Comment on above: Performed By: #### 6 30-4 #### [facility] ([id number]) [address], [address] [place] [address] VITAMIN B12on 01-25-2024 Cobalamin (Vitamin B12) [Mass/Vol] 510 pg/mL Normal 180-914 [facility] Comment on above: Performed By: #### C BCA, CMP, FEPR, 3016-3, 6-4, 2132-04 #### [facility] ([id number]) [address] [place] [address] DRUG SCREEN, URINEon 024 AMPHETAMINE/METHAMP Negative Normal NEG [facility] Comment on above: Result Comment: AMPH /METH screening cut off = 1000 ng/mL Performed By: #### D HOUGH #### [facility] ([id number]) [address], [address] [place] [address] BARBITURATES Negative Normal NEG [facility] Comment on above: Result Comment: Emani iturates screening cut off value = 200 ng/mL Performed By: #### D HOUGH #### [facility] ([id number]) [address] [place] [address] BENZODIAZEPINES Negative Normal NEG [facility] Comment on above: Result Comment: Serjio odiazepines screening cut off value = 200 ng/mL Performed By: #### D HOUGH #### [facility] ([id number]) [address] [place] [address] CANNABINOIDS Positive Abnormal NEG [facility] Comment on above: Result Comment: Conf irmation available upon request. Cannabinoids/THC screening cut off value = 50 ng/mL Performed By: #### D HOUGH #### [facility] ([id number]) [address] [place] [address] COCAINE METABOLITE Negative Normal NEG [facility] Comment on above: Result Comment: Coca ine screening cut off value = 300 ng/mL Performed By: #### D HOUGH #### [facility] ([id number]) [address], [address] [place] [address] ECSTASY Negative Normal NEG [facility] Comment on above: Result Comment: Ecst asy screening cut off value = 500 ng/mL This report is intended for use in clinical monitoring or management of patients. Performed By: #### D HOUGH #### [facility] ([id number]) [address] [place] [address] METHADONE Negative Normal NEG [facility] Comment on above: Result Comment: Meth adone screening cut off value = 300 ng/mL. Performed By: #### D HOUGH #### [facility] ([id number]) [address], [address] [place] [address] OPIATES Negative Normal NEG [facility] Comment on above: Result Comment: Opia lena screening cut off value = 300 ng/mL NOTE: This test is used for the detection of codeine, hydrocodone (>1000 ng/mL), morphine and hydromorphone (>900 ng/mL) in urine. Performed By: #### D HOUGH #### [facility] ([id number]) [address] [place] [address] OXYCODONE Negative Normal [facility] Comment on above: Result Comment: Oxyc odone screening cut off value = 300 ng/mL NOTE: This test is used for the detection of oxycodone and oxymorphone in urine. Performed By: #### D HOUGH #### [facility] ([id number]) [address] [place] [address] PHENCYCLIDINE Negative Normal [facility] Comment on above: Result Comment: Phen cyclidine screening cut off value = 25 ng/mL Performed By: #### D HOUGH #### [facility] ([id number]) [address], [address] [place] [address] Vital Signs Date Time Vital Sign Value Performing Clinician Faci lity 09-20-2023 08:23-0500 Body height 167.6 cm Jacob TRAYLOR Work Phone: [facility] 09-20-2023 08:23-0500 Body mass index (BMI) [Ratio] 20.3 kg/m2 Jacob TRAYLOR Work Phone: [facility] 09-20-2023 08:23-0500 Body temperature 97.9 [degF] Jacob Zhang APRN-CLAIR Work Phone: [facility] 09-20-2023 08:23-0500 Body weight 57.06 kg Jacob Zhang APRN-PLAYERS [employer] REPRESENTATIVE Work Phone: [facility] 09-20-2023 08:23-0500 Diastolic blood pressure 70 mm[Hg] Jacob Zhang APRN-[employer] REPRESENTATIVE Work Phone: [facility] 09-20-2023 08:23-0500 Heart rate 91 /min Jacob Zhang APRN-[employer] REPRESENTATIVE Work Phone: [facility] 09-20-2023 08:23-0500 SaO2% (BldA) [Mass fraction] 99 % Jacob Zhang APRN-[employer] REPRESENTATIVE Work Phone: [facility] 09-20-2023 08:23-0500 Systolic blood pressure 120 mm[Hg] Jacob Zhang APRNCLAIR Work Phone: [facility] Encounters Encounter Date Encounter Type Care Provider Facility Start: 01-26-2024 End: 01-26-2024 ambulatory [facility] Start: 01-25-2024 End: 01-25-2024 ambulatory [facility] Start: 12-28-2023 End: 12-29-2023 ambulatory [facility] Start: 12-28-2023 End: 12-28-2023 ambulatory [facility] Start: 09-20-2023 End: 09-20-2023 ambulatory [facility] Start: 09-20-2023 End: 09-20-2023 Office outpatient visit 25 minutes Jacob Zhang APRN-[employer] REPRESENTATIVE Work Phone: [facility] Comment on above: Essential hypertensi on (Primary Dx); Major depressive disorder with single episode, in partial remission (CMS-HCC); Fibromyalgia affecting multiple sites; Acquired hypothyroidism; Mixed hyperlipidemia; Chronic pain syndrome Start: 08-31-2023 Telephone encounter [facility] Comment on above: Med Refill Start: 02-05-2020 Patient encounter procedure Shari Daly EXERCISE INSTRUCTOR [facility] Start: 09-15-2017 End: 02-09-2018 Physical examination Shari Daly EXERCISE INSTRUCTOR [facility] Procedures Date Procedure Procedure Detail Performing Clinician Start: 09-20-2023 Adult depression screening assessment Jacob Zhang EGG PROCESSOR-[employer] REPRESENTATIVE Work Phone: Start: 06-16-2023 Adult depression screening assessment Shari Daly EXERCISE INSTRUCTOR Start: 10-06-2022 Mammography Shari Daly EXERCISE INSTRUCTOR Start: 08-24-2018 History of excision of lamina of lumbar vertebra for decompression of spinal cord Hx of decompressive lumbar laminectomy Shari Daly EXERCISE INSTRUCTOR Start: 09-19-2017 Colonoscopy Shari Daly EXERCISE INSTRUCTOR Plan of Treatment Date Care Activity Detail Author Start: 09-19-2027 Screening for malignant neoplasm of colon Colonoscopy [facility] Start: 12-15-2024 Tobacco Counseling Tobacco Counseling [facility] Start: 09-20-2024 Adult BMI Screening Adult BMI Screening [facility] Start: 09-20-2024 Depression Screening Depression Screening [facility] Start: 09-20-2024 Fall Risk Screening Fall Risk Screening [facility] Start: 09-20-2024 Tobacco Screening Tobacco Screening [facility] Start: 06-16-2024 Adult BMI Screening Adult BMI Screening [facility] Start: 06-16-2024 Depression Screening Depression Screening [facility] Start: 06-16-2024 Fall Risk Screening Fall Risk Screening [facility] Start: 06-16-2024 Tobacco Screening Tobacco Screening [facility] Start: 03-17-2024 Medicare Annual Wellness Visit Medicare Annual Wellness Visit [facility] Start: 12-28-2023 End: 12-28-2023 Patient encounter procedure 12/28/2023 10:00 AM EDT [facility] [address] [place] [address] Jacob Zhang EGG PROCESSOR-[employer] REPRESENTATIVE [address] [place] [address] [facility] Start: 10-06-2023 Screening for malignant neoplasm of breast Mammogram [facility] Start: 09-20-2023 End: 09-20-2023 Patient encounter procedure 09/20/2023 8:30 AM EST [facility] [address] [place] [address] Jacob Zhang, EGG PROCESSOR-[employer] REPRESENTATIVE [address] [place] [address] [facility] Start: 2007 Administration of varicella zoster vaccine Zoster (Shingles) Vaccine (1 of 2) [facility] Immunizations Immunization Date Immunization Notes Care Provider Fa cility 05-11-2019 influenza virus vaccine, unspecified formulation Shari Daly [facility] 05-11-2019 influenza, injectabl e, quadrivalent, preservative free Shari Daly [facility] Work Phone: 09-15-2017 influenza, injectabl e, quadrivalent, preservative free Shari Daly [facility] Payers Date Payer Category Payer Medicare ANTHEM MEDICARE ANTHEM MEDICARE ADVANTAGE [id number] 2017-Present [phone] [address] [place] [address] [id number] 2017 Medicare [id number] 1955 Unknown [id number] 6 1955 Unknown [id number] 6 1957 Unknown [id number] 6 1955 Unknown [id number] 6 1955 Unknown [id number] 6 Social History Date Type Detail Facility Start: 03-17-2023 Tobacco smoking status NHIS Smokes tobacco daily [facility] History of tobacco use Cigarette Smoker P [facility] Start: 06-07-2021 End: 03-17-2023 Cigarettes smoked current (pack per day) - Reported 0.5 [facility] Start: 03-17-2023 Tobacco use and exposure Smokeless tobacco non-user [facility] Start: 06-16-2023 End: 09-20-2023 Alcohol intake Current non-drinker of alcohol (finding) [facility] Start: 06-07-2021 End: 09-20-2023 Social connection and isolation panel [facility] Do you belong to any clubs or organizations such as confucianist groups, unions, fraternal or athletic groups, or school groups? No [facility] Are you now , , , , never or living with a partner? [facility] How often to you hav e a drink containing alcohol? Never [facility] How many standard dr inks containing alcohol do you have on a typical day? 1 or 2 [facility] How hard is it for y ou to pay for the very basics like food, housing, medical care, and heating Not very hard [facility] Adolescent depressio n screening assessment 0 [facility] Do you feel stress - tense, restless, nervous, or anxious, or unable to sleep at night because your mind is troubled all the time - these days [OSQ] Not at all [facility] Start: 04-08-2021 Education 14 [facility] Start: 1955 Sex Assigned At Female [facility] Start: 10-15-2021 Gender identity Identifies as female gender (finding) [facility] Start: 10-15-2021 Sexual orientation Heterosexual (finding) [facility] History of Present illness Narrative 09-20-2023 Jacob Zhang, EGG PROCESSOR-[employer] REPRESENTATIVE - 09/20/2023 8:30 AM EST Note Date & Type Note Facility 09-20-2023 History of Present illness Narrative Images from the original note were not included. [address] [place] [address] SUBJECTIVE: Patient ID: Funmilayo Ocampo is a [...] 09/19/2017 Performed by Mayur Walter DO at [facility] HYSTERECTOMY OOPHORECTOMY Past Medical History: Diagnosis Date [...] disorder with single episode, in partial remission ([facility]) - venlafaxine XR (EFFEXOR-XR) 150 mg 24 [...] Gabapentin 300 mg daily at HS Reorder [place] 5/325 mg oral every 12 hours PRN [...] Bains 09/20/23 0916 documented in this encounter [facility] Instructions 09-20-2023 Patient InstructionsAttachments Note Date & Type Note Facility 09-20-2023 Instructions LAYTON Bains - 09/20/2023 8:30 AM EST Are You Ready To Kick The Habit? Free Tobacco Cessation Resources [facility] Services [facility] provide all employees with free tobacco cessation services that include: Counseling to understand nicotine addiction Education about medications that can help you successfully quit Assistance with developing a plan to quit Call to set up an individual appointment or find out when group classes will be held: [facility]: [phone] [facility]: [phone] [facility]: [phone] [facility]: [phone] Quit Smoking Action Plan and Resources [facility] offers an eight-week, online smoking cessation plan to all [facility] employees, regardless of whether [place] is your medical insurance provider. Go to [email or web address] and click the Health Risk Assessment and Resources link to get started. In the [id number] menu, click Action Plans instead of Health Risk Assessment to access the Quit Smoking Action Plan. Additional smoking cessation resources are also available to all [facility] employees on the Fzxoj0Wzcjpd web page at [email or web address]. [place] Tobacco Cessation Program If [place] is your medical insurance provider, there are more free resources available to you, including: No copays or deductibles on local tobacco cessation counseling services to help you quit Prescription assistance for tobacco cessation medications to help you quit For details about the tobacco cessation program available to [place] members, go to www.[place].E-Duction (Search: Tobacco Cessation Program). [place] Tobacco Quit Line 2-809-BNJV-NOW ( ) is a toll-free, telephonic service that helps [place] residents quit smoking and using tobacco. It is staffed by experts who tailor a quit plan for you and provide you with advice. [place] Tobacco Quit Line 9-232-IXHY-NOW ( ) is a toll-free, telephonic service [...] and resources to help you quit tobacco: [employer]--www.cancer.org/healthy/staya wayfromtobacco [employer] Heart Association--www.heart.org (Search: Quit Smoking) Centers for Disease Control and Prevention--www.cdc.gov/tobacco [place] Lung Association--www.lungusa.org The following attachments cannot be sent through Care Everywhere.Anxiety Discharge Instructions, Adult (Estonian)documented in this encounter [facility] Note 08-31-2023 Telephone Encounter - Shari [...] sent Prednisone taper to her pharmacy for order picker/assembler, [facility] Called pt left vm documented in this encounter [facility] Telephone encounter Note 08-31-2023 Telephone Encounter [...] weeks at her appointment ? Pls advise [facility] Telephone encounter Note 08-31-2023 Telephone Encounter - LAYTON Bains - 08/31/2023 11:21 AM EST Note Date & Type Note Facility 08-31-2023 Telephone encount er Note I sent Prednisone taper to her pharmacy for order picker/assembler, [facility] encounter Note 08-31-2023 Telephone Encounter - Shari Kauffamn CMA - 08/31/2023 11:21 AM EST Note Date & Type Note Facility 08-31-2023 Telephone encount er Note [facility] Evaluation note Note Date & Type Note Facility Evaluation note Diagnosis Fibromyalgia affecting multiple sites- Primary Chronic bilateral low back pain with sciatica, sciatica laterality unspecified documented in this encounter [facility] Evaluation note Note Date & Type Note Facility Evaluation note Diagnosis Essential hypertension- Primary Unspecified essential hypertension Major depressive disorder with single episode, in partial remission ([facility]) Fibromyalgia affecting multiple sites Acquired hypothyroidism Unspecified hypothyroidism Mixed hyperlipidemia Chronic pain syndrome documented in this encounter [facility] Instructions Note Date & Type Note Facility Instructions Not on filedocumented in this en counter [facility] Advance Directives No Advanced Directives Records FoundDocuments on File Type Date Recorded Patient Physical Therapy Professor Expl anation Advance Directive 10/06/2017 9:36 AM ABN 10/06/17 Documents on File Type Date Recorded Patient Physical Therapy Professor Expl anation Advance Directive 10/06/2017 9:36 AM ABN 10/06/17 Reason for Referral Specialty Diagnoses / Procedures Referred By Martita duke Referred To Contact Diagnoses Fibromyalgia affecting multiple sites Jacob Zhang APRN-CNP [address] [place] [address] Referral ID Status Reason Start Date Expiration Date V isits Requested Visits Authorized [id number] Pending Review 1 1 Summary Purpose Family History No Family History Records FoundNo Family History Records Found Additional Source Comments Reason for Visit (unrecogniz ed section and content) Reason Onset Date Comments Med Refill 08/31/2023 Reason Comments Depression Care Teams (unrecognized sec tion and content) 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 [facility] [employer], [facility]. provides no warranty or guarantee of the accuracy or completeness of information in this document.
--- NOTE | 2024-01-27 12:08 | CM.NOTE ---
Rounds made with Dr. Gaston, discussed with pt diagnosis and need for oral antibiotics at discharge. Pt will discharge to home today, no other discharge needs identified.
--- NOTE | 2024-01-27 13:12 | SWNOTE1 ---
Important Message from Medicare reviewed and discussed with patient. Pt. verbalized understanding and signed the form. Original given to patient and copy placed in patient?s chart. Pt voices no discharge needs at this time and is hoping she can dc later today.
[2024-01-27 13:26] LABS: Anion Gap 14.4; BUN Creatinine Ratio 9.6; Calcium 8.6 mg/dL (8.5-10.1); Carbon Dioxide 26.8 mmol/L (21.0-32.0); Chloride 96 mmol/L (98-107); Estimated GFR (African America >60 (>=60); Estimated GFR (Non-African Ame >60 (>=60); Glucose 182 mg/dL (74-106); Magnesium 2.2 mg/dL (1.8-2.4); Potassium 3.2 mmol/L (3.5-5.1); Sodium 134 mmol/L (136-145)
[2024-01-27] MEDS: POTASSIUM CHLORIDE 10 MEQ ER TABLET 40 MEQ PO (14:06)
--- NOTE | 2024-01-30 15:28 | CM.DCFOLLOWU ---
1st attempt 01/30/24, no answer
== END 2024-01-27 14:58 | disposition home or self-care (01) ==
LOC: ER 18:36 → MS 01-27 11:51
PROVIDERS: Nurse Practitioner; Physician Assistant; Registered Nurse; Admitting Provider Family Medicine; Emergency Provider Emergency Medicine Emergency Medical Services; PCP Nurse Practitioner; Visit Provider Family Medicine
DX: J18.9 Pneumonia, unspecified organism (principal); E87.1 Hypo-osmolality and hyponatremia; E87.6 Hypokalemia; E83.42 Hypomagnesemia; R53.83 Other fatigue; D72.829 Elevated white blood cell count, unspecified; I10 Essential (primary) hypertension; E78.5 Hyperlipidemia, unspecified; E03.9 Hypothyroidism, unspecified; F32.A Depression, unspecified; F17.200 Nicotine dependence, unspecified, uncomplicated; R06.02 Shortness of breath; Z79.899 Other long term (current) drug therapy; Z20.822 Contact with and (suspected) exposure to COVID-19
CPT/HCPCS: 0202U; 36415; 71045; 71275; 74176; 80048; 80053; 81001; 82800; 83605; 83735; 83880; 84145; 84443; 84484; 85007; 85025; 85027; 85610; 87040; 93005; 96365; 96366; 96367; 99285; G0378; Q9967

== ENCOUNTER 2024-10-18 13:21 | Emergency (ER) | payer MEDICARE, SELFPAY ==
[2024-10-18] VITALS (19 sets, daily range): BP systolic 130–149; BP diastolic 86–105; PULSE 71–96; TEMP 36.7; O2SAT 77–97; BMI 19.7
--- NOTE | 2024-10-18 13:31 | ECG_ITS ---
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
--- NOTE | 2024-10-18 13:36 | ED_ITS ---
HPI HPI - General Adult General Chief complaint: Shortness of Breath/Dyspnea Stated complaint: SOB WEAKNESS Time Seen by Provider: 10/18/24 13:22 Source: patient Mode of arrival: walk-in History of Present Illness HPI narrative: Patient is a 69-year-old female who presents to the emergency department for shortness of breath over the last 5 to 7 days, with 2 to 3 days of left scapular pain. She has not had any objective fevers. No significant sputum production with coughing. She was seen in this emergency department 1 year ago and diagnosed with multifocal pneumonia. She has not had any vomiting, diarrhea. No daren chest pain or hemoptysis. She denies any other history of coronary artery disease or lung problems. No sick contacts in the home. Related Data Home Medications ?Medication ?Instructions ?Recorded ?Confirmed gabapentin 300 mg capsule 300 mg PO Q12H 01/26/24 01/26/24 hydrocodone 5 mg-acetaminophen 325 1 tab PO Q6H PRN pain 01/26/24 01/26/24 mg tablet levothyroxine 100 mcg tablet 100 mcg PO DAILY 01/26/24 01/26/24 (Synthroid) nitrofurantoin 100 mg PO Q12H 01/26/24 01/26/24 monohydrate/macrocrystals 100 mg capsule prednisone 20 mg tablet 20 mg PO Q12H 01/26/24 01/26/24 simvastatin 5 mg tablet 5 mg PO DAILY 01/26/24 01/26/24 venlafaxine 150 mg 150 mg PO DAILY 01/26/24 01/26/24 capsule,extended release 24 hr Previous Rx's ?Medication ?Instructions ?Recorded bisoprolol fumarate 5 mg tablet 5 mg PO DAILY #30 tabs 01/27/24 levofloxacin 750 mg tablet 750 mg PO DAILY 7 days #7 tabs 01/27/24 albuterol sulfate 90 mcg/actuation 2 inh inhalation Q4H PRN shortness 10/18/24 aerosol inhaler of breath or wheezing #8.5 grams doxycycline hyclate 100 mg tablet 100 mg PO BID 10 days #20 tabs 10/18/24 hydrocodone 5 mg-acetaminophen 325 1 tab PO Q6H PRN pain 3 days #12 10/18/24 mg tablet tabs methylprednisolone 4 mg tablets in See Rx Instructions .Route 10/18/24 a dose pack (Medrol (Olman)) .COMPLEX #21 ea Allergies Allergy/AdvReac Type Severity Reaction Status Date / Time No Known Drug Allergies Allergy Verified 01/26/24 14:14 Opioid HPI Opioid Management Most Recent Opioid Data: Last Pain Scale 2 01/27/24 06:04 01/27/24 Last ORT Total Score 2 01/26/24 19:59 01/26/24 Last ORT Risk Category Low Risk 01/26/24 19:59 01/26/24 Review of Systems ROS Constitutional Denies: fever or chills Ears, nose, mouth, and throat Denies: throat pain or nasal congestion Cardiovascular Denies: chest pain Respiratory Reports: shortness of breath and cough Gastrointestinal Denies: abdominal pain, nausea or vomiting Musculoskeletal Reports: back pain; Denies: neck pain Integumentary/Breast Denies: rash Neurological Denies: numbness in extremities or weakness in extremities Hematologic/Lymphatic Denies: easy bruising or easy bleeding PFSH PFSH Medical History (Updated 10/18/24 @ 15:45 by TRACEY Vila) HTN (hypertension) ?I10 - Essential (primary) hypertension (ICD-10) Depression ?F32.A - Depression, unspecified (ICD-10) Hyperlipidemia ?E78.5 - Hyperlipidemia, unspecified (ICD-10) Hypothyroidism ?E03.9 - Hypothyroidism, unspecified (ICD-10) Tobacco dependence ?F17.200 - Nicotine dependence, unspecified, uncomplicated (ICD-10) Social History Highest level of school completed/degree received: high school graduate Little interest or pleasure in doing things: not at all Feeling down, depressed, or hopeless: not at all Do you think of yourself as: straight/heterosexual Gender Identity: female Exam Narrative Exam Narrative: Gen.: Awake, alert, in no distress Head: Normocephalic, atraumatic ENT: Moist mucous membranes Respiratory: No respiratory distress, lungs clear bilaterally Cardio: Regular rate and rhythm Gastrointestinal: Abdomen is soft, nondistended and nontender to palpation Extremities: Moves extremities equally Psych: Normal mood and affect Neuro: No focal neuro deficit Skin: Warm, dry, intact Constitutional Vital Signs, click to edit/add: Last Vital Signs Temp 98.0 F 10/18/24 13:26 Pulse 79 10/18/24 13:26 Resp 20 10/18/24 13:26 BP 144/90 H 10/18/24 13:45 Pulse Ox 95 10/18/24 13:26 O2 Del Method Room Air 10/18/24 13:26 Course Vital Signs Vital signs: Vital Signs Temperature 98.0 F 10/18/24 13:26 Pulse Rate 79 10/18/24 13:26 Respiratory Rate 20 10/18/24 13:26 Blood Pressure 130/98 H 10/18/24 13:26 Pulse Oximetry 95 10/18/24 13:26 Oxygen Delivery Method Room Air 10/18/24 13:26 Temperature 98.0 F 10/18/24 13:26 Pulse Rate 79 10/18/24 13:26 Respiratory Rate 10/18/24 13:26 Blood Pressure 144/90 H 10/18/24 13:45 Pulse Oximetry 95 10/18/24 13:26 Oxygen Delivery Method Room Air 10/18/24 13:26 Medical Decision Making MDM Narrative Medical decision making narrative: Laboratory studies reviewed and noted within normal limits, D-dimer is elevated so she was sent for CT angio of the chest which shows no evidence of acute process per the radiologist. Patient was given IV fluids in the ER, her sodium was noted to be low at 127. She has no other focal medical complaints. She has had hyponatremia in the past. Suspect pleurisy causing her symptoms, she will be placed on an antibiotic, steroid taper, albuterol inhaler and a short course of analgesics as needed. She is hemodynamically stable, sitting comfortably and breathing easily on reevaluation. Return to the emergency department if symptoms change or worsen. Follow-up PCP. SUPERVISED APC VISIT, PHYSICIAN ATTESTATION: Based on the medical record the care appears appropriate. ? Medical Records Medical records reviewed: Yes I reviewed the patient's medical records Lab Data Lab results reviewed: Yes I reviewed the patient's lab results Labs: Lab Results 10/18/24 10/18/24 Range/Units 13:35 13:43 WBC 8.5 (4.0-11.0) 10^3/uL RBC 5.45 H (4.20-5.40) 10^6/uL Hgb 15.1 (12.0-16.0) g/dL Hct 46.2 (36.0-48.0) % MCV 84.8 (81.0-99.0) fL MCH 27.7 (26.7-34.0) pg MCHC 32.7 (29.9-35.2) g/dL RDW 13.8 (11.0-15.0) % Plt Count 348 (150-450) 10^3/uL MPV 9.4 L (9.5-13.5) fL Neut % (Auto) 73.5 (43.0-75.0) % Lymph % (Auto) 10.1 L (20.5-60.0) % [place] % (Auto) 12.0 (1.7-12.0) % Eos % (Auto) 3.4 (0.9-7.0) % Baso % (Auto) 0.6 (0.2-2.0) % Neut # (Auto) 6.3 (1.4-6.5) 10^3/uL Lymph # (Auto) 0.9 L (1.2-3.8) 10^3/uL [place] # (Auto) 1.0 H (0.3-0.8) 10^3/uL Eos # (Auto) 0.3 (0.0-0.7) 10^3/uL Baso # (Auto) 0.1 (0.0-0.1) 10^3/uL Abs Immat Gran (auto) 0.03 (0.00-0.03) 10^3/uL Imm/Tot Granulo (auto) 0.4 (0.0-0.5) % PT 10.5 (9.0-11.6) sec INR 0.99 APTT 33.3 (22.3-36.2) sec D-Dimer 0.69 H* (<=0.59) mg/L FEU VBG pH 7.339 (7.330-7.430) VBG pCO2 40.4 (40.0-52.0) mmHg Sodium 127 L (136-145) mmol/L Potassium 4.3 (3.5-5.1) mmol/L Chloride 90 L (98-107) mmol/L Carbon Dioxide 24.2 (21.0-32.0) mmol/L Anion Gap 17.1 BUN 13.0 (7.0-18.0) mg/dL Creatinine 1.31 H (0.55-1.02) mg/dL Est GFR ( Amer) 49 L (>=60 mL/min/1.73m^2) Est GFR (Non-Af Amer) 40 L (>=60 mL/min/1.73m^2) BUN/Creatinine Ratio 9.9 Glucose 101 (74-106) mg/dL Calcium 9.4 (8.5-10.1) mg/dL Total Bilirubin 0.3 (0.2-1.0) mg/dL AST 25 (15-37) U/L ALT 16 (14-59) U/L Alkaline Phosphatase 113 (46-116) U/L Troponin I High Sens 6.1 (4.0-51.3) pg/mL NT-Pro-B Natriuret Pep 129.0 (<=900.0) pg/mL Total Protein 7.6 (6.4-8.2) g/dL Albumin 4.3 (3.4-5.0) g/dL Globulin 3.3 g/dL Albumin/Globulin Ratio 1.3 Influenza Type A Ag Negative Influenza Type B Ag Negative RSV Antigen Not detected (NOT DETECTE) SARS-CoV-2 Ag (CV2AG) Negative (NEGATIVE) Imaging Data CT scan - chest: Attestation: I have reviewed the pertinent imaging results. ECG Data Attestation: I personally reviewed and interpreted this ECG as follows: (Normal sinus rhythm at a rate of 78, artifact noted with no acute ST elevation or ectopy. EKG reviewed by attending physician) Discharge Plan Discharge Chief Complaint: Shortness of Breath/Dyspnea Clinical Impression: COPD exacerbation, Pleurisy Patient Disposition: Home, Self-Care Time of Disposition Decision: 15:45 Condition: Good Prescriptions / Home Meds: New hydrocodone-acetaminophen 5-325 mg tablet 1 tab PO Q6H PRN (Reason: pain) 3 Days Qty: 12 0RF Rx Instructions: DX M54.5 albuterol sulfate 90 mcg/actuation HFA aerosol inhaler 2 inh inhalation Q4H PRN (Reason: shortness of breath or wheezing) Qty: 8.5 0RF doxycycline hyclate 100 mg tablet 100 mg PO BID 10 Days Qty: 20 0RF methylprednisolone [Medrol (Olman)] 4 mg tablets,dose pack See Rx Instructions .ROUTE .COMPLEX Qty: 21 0RF Rx Instructions: Taper as directed No Action gabapentin 300 mg capsule 300 mg PO Q12H hydrocodone-acetaminophen 5-325 mg tablet 1 tab PO Q6H PRN (Reason: pain) levothyroxine [Synthroid] 100 mcg tablet 100 mcg PO DAILY nitrofurantoin monohyd/m-cryst 100 mg capsule 100 mg PO Q12H prednisone 20 mg tablet 20 mg PO Q12H simvastatin 5 mg tablet 5 mg PO DAILY venlafaxine 150 mg capsule,extended release 24hr 150 mg PO DAILY bisoprolol fumarate 5 mg tablet 5 mg PO DAILY Qty: 30 0RF levofloxacin 750 mg tablet 750 mg PO DAILY 7 Days Qty: 7 0RF Print Language: Gabonese Instructions: Pleurisy (ED), COPD (Chronic Obstructive Pulmonary Disease) (ED) Referrals: JACOB ZHANG [Primary Care Provider] - 1 week
[2024-10-18 13:50] LABS: Basophils Absolute Auto 0.1 10^3/uL (0.0-0.1); Basophils Percent Auto 0.6 % (0.2-2.0); Eosinophils Absolute Auto 0.3 10^3/uL (0.0-0.7); Eosinophils Percent Auto 3.4 % (0.9-7.0); Hematocrit 46.2 % (36.0-48.0); Hemoglobin 15.1 g/dL (12.0-16.0); Immature Granulocytes Abs Auto 0.03 10^3/uL (0.00-0.03); Immature Granulocytes Pct Auto 0.4 % (0.0-0.5); Lymphocytes Absolute Auto 0.9 10^3/uL (1.2-3.8); Lymphocytes Percent Auto 10.1 % (20.5-60.0); Mean Corpuscular HGB Conc 32.7 g/dL (29.9-35.2); Mean Corpuscular Hemoglobin 27.7 pg (26.7-34.0); Mean Corpuscular Volume 84.8 fL (81.0-99.0); Mean Platelet Volume 9.4 fL (9.5-13.5); Neutrophils Absolute Auto 6.3 10^3/uL (1.4-6.5); Neutrophils Percent Auto 73.5 % (43.0-75.0); Platelet Count 348 10^3/uL (150-450); Red Blood Count 5.45 10^6/uL (4.20-5.40); Red Cell Distribution Width 13.8 % (11.0-15.0); White Blood Count 8.5 10^3/uL (4.0-11.0)
[2024-10-18 13:57] LABS: PCO2 VBG 40.4 mmHg (40.0-52.0); pH VBG 7.339 (7.330-7.430)
[2024-10-18 14:06] LABS: Influenza Virus A Antigen Negative; Influenza Virus B Antigen Negative; Internal Control Within Normal Limits; Respiratory Syncytial Virus Not Detected (NOT DETECTE); SARS-CoV-2 Ag NEGATIVE (NEGATIVE)
[2024-10-18 14:09] LABS: INR 0.99; Partial Thromboplastin Time 33.3 sec (22.3-36.2); Prothrombin Time 10.5 sec (9.0-11.6)
[2024-10-18 14:13] LABS: D Dimer 0.69 mg/L FEU (<=0.59)
[2024-10-18 14:19] LABS: Alanine Aminotransferase 16 U/L (14-59); Albumin Globulin Ratio 1.3; Albumin Level 4.3 g/dL (3.4-5.0); Alkaline Phosphatase 113 U/L (46-116); Anion Gap 17.1; Aspartate Amino Transferase 25 U/L (15-37); BUN Creatinine Ratio 9.9; Bilirubin Total 0.3 mg/dL (0.2-1.0); Calcium 9.4 mg/dL (8.5-10.1); Carbon Dioxide 24.2 mmol/L (21.0-32.0); Chloride 90 mmol/L (98-107); Estimated GFR (African America 49 (>=60 mL/min/1.73m^2); Estimated GFR (Non-African Ame 40 (>=60 mL/min/1.73m^2); Globulin 3.3 g/dL; Glucose 101 mg/dL (74-106); Potassium 4.3 mmol/L (3.5-5.1); Sodium 127 mmol/L (136-145); Total Protein 7.6 g/dL (6.4-8.2); Troponin I High Sensitivity 6.1 pg/mL (4.0-51.3)
[2024-10-18] MEDS: 0.9 % SODIUM CHLORIDE 1,000 ML 1000 ML IV (14:52)
== END 2024-10-18 16:02 | disposition home or self-care (01) ==
PROVIDERS: Physician Assistant; Emergency Provider Emergency Medicine; PCP Nurse Practitioner
DX: J44.1 Chronic obstructive pulmonary disease with (acute) exacerbation (principal); R09.1 Pleurisy; R06.02 Shortness of breath
CPT/HCPCS: 36415; 71275; 80053; 82800; 83880; 84484; 85025; 85378; 85610; 85730; 87420; 87804; 87811; 93005; 99285; Q9967

== ENCOUNTER 2025-08-24 11:41 | Emergency (ER) | payer MEDICARE, SELFPAY ==
--- OUTSIDE RECORDS SUMMARY | 2025-08-12 14:45 | XMS_ITS | Encounter Summary ---
Author Organization Dime tem Address [id number] [address] [place] [address] Care Team Providers Care Used Car Make Ready Worker Name Role Phone Azul Almanza Juliana LUNAN-HEALTHCARE BUSINESS ANALYST Primary Care Provider + Reason for Referral * Vascular (Routine) - ClosedSpecialtyDiagnoses / ProceduresReferred By Contact Referred To Contact Diagnoses PVD (peripheral vascular disease) Procedures Vas AAA Screening Steven Caraballo DO [address] [place] [address] Phone: tel: fax: Referral IDStatusReasonStart DateExpiration DateVisits RequestedVisits [id number]/15/202512/15/202611 * Vascular (Routine) - ClosedSpecialtyDiagnoses / ProceduresReferred By Contact Referred To Contact Diagnoses PVD (peripheral vascular disease) Procedures Vas art doppler lwr limited single Steven Caraballo DO [address] [place] [address] Phone: tel: fax: Referral IDStatusReasonStart DateExpiration DateVisits RequestedVisits [id number]/15/202512/15/202611 Reason for Visit * ReasonCommentsHypertension Encounter Details DateTypeDepartmentCare Team (Latest Contact Info)Zsywfbnvdrj80/15/2025 2:45 PM ESTOffice Visit [facility] [address] [place] [address] Steven Caraballo, [address] [facility] [place] [address] Essential hypertension (Primary Dx); PVD (peripheral vascular disease); Chest pain, unspecified type Social History Tobacco UseTypesPacks/DayYears UsedDateSmoking Tobacco: Every DayCigarettes0.535 Smokeless Tobacco: NeverAlcohol UseStandard Drinks/WeekCommentsNo0 (1 standard drink = 0.6 oz pure alcohol)Social Connection and Isolation PanelAnswerDate RecordedIn a typical week, how many times do you talk on the phone with family, friends, or neighbors?Once a week06/07/2021How often do you get together with friends or relatives?Once a week06/07/2021How often do you attend presybeterian or jehovah's witness services?Never06/07/2021o you belong to any clubs or organizations such as presybeterian groups, unions, fraternal or athletic groups, or school groups?No 06/07/2021How often do you attend meetings of the clubs or organizations you belong to?Never06/07/2021re you , , , , never , or living with a partner?Uqtuzav9506/07/2021UDIT-CAnswerDate RecordedQ1: How often do you have a drink containing alcohol?Never06/07/2021Q2: How many drinks containing alcohol do you have on a typical day when you are drinking?1 or Q3: How often do you have six or more drinks on one occasion?Never 06/07/2021Overall Financial Resource Strain (CARDIA)AnswerDate RecordedHow hard is it for you to pay for the very basics like food, housing, medical care, and heating?Not hard at all03/27/2025PHQ-2AnswerDate RecordedTotal Abxhu034/ [facility] [place] of Occupational Health - Occupational Stress Questionnaire AnswerDate RecordedDo you feel stress - tense, restless, nervous, or anxious, or unable to sleep at night because yourmind is troubled all the time - these days? Not at all06/07/2021xercise Vital SignAnswerDate RecordedOn average, how many days per week do you engage in moderate to strenuous exercise (like a brisk wal k)?0 days06/07/2021On average, how many minutes do you engage in exercise at this level?0 min06/07/2021RAPARE - TransportationAnswerDate RecordedIn the past 12 months, has lack of transportation kept you from medical appointments or from getting medications?No03/27/2025In the past 12 months, has lack of transportation kept you from meetings, work, or from getting things needed for daily living?No03/27/2025Housing InstabilityAnswerDate RecordedAre you worried or concerned that in the next two months you may not have stable housing that you own, rent or stay in as a part of a household?No03/27/2025hildcareAnswer Date RecordedDo problems getting child development director make it difficult for you to work or study?No06/07/2021mploymentAnswerDate RecordedDo you need help finding a local career center and/or a training program?No06/07/2021Hunger ScreeningAnswerDate RecordedWithin the past 12 months we worried whether our food would run out before we got money to buy more.Never True08/12/2025Within the past 12 months the food we bought just didn't last and we didn't have money to get more.Never True08/12/2025Purpose - LifeAnswerDate RecordedI have a purpose and direction in my life.Strongly Agree06/07/2021ducationAnswerDate RecordedWhat is the highest level of school you have completed or the highest degree you have received?GED or hzhitnvnpa32/11/2021CommentsNoSex and Gender InformationValueDate RecordedSex Assigned at RwonbLcblww80/17/2022 8:42 AM ESTLegal SexFemale 04/03/2015 11:40 AM EDTGender JfynfkipVjplya61/17/2022 8:42 AM ESTSexual MvktwcqkwvoNmijyhwv90/17/2022 8:42 AM ESTdocumented as of this encounter Last Filed Vital Signs Vital SignReadingTime TakenCommentsBlood Eziqhfjo510/ 3:19 PM EST Hjgnp500608/12/2025 2:59 PM NHJCkgndvpuffi11.5 ??C (97.7 ??F)08/12/2025 2:59 PM ESTRespiratory Rate--Oxygen Zpyzlrdxod23%08/12/2025 2:59 PM ESTInhaled Oxygen Concentration--Eztehb46.9 kg (116 lb 9.6 oz)08/12/2025 2:59 PM AIFGvjqnc673.6 cm (5' 4 )08/12/2025 2:59 PM ESTBody Mass Index20.01110/13/2024 2:59 PM EST documented in this encounter Functional Status * BPAnswerDate of ZjfgfmqeczNakvvw516/9208/12/2025 3:19 PM Steven Maldonado DO * TempAnswerDate of JffchcopujWijmcd94.7110/13/2024 2:59 PM Luz Elena Garcia CMA * Temp srcAnswerDate of VngttjyhbnQiidebQnpkolmm51/15/2025 2:59 PM Luz Elena Garcia CMA * PulseAnswerDate of LsfordedzkOjdqyx8756/15/2025 2:59 PM Luz Elena Garcia CMA * ExI7SaxgteLppx of YkakkqhodyZyelef9962/15/2025 2:59 PM Luz Elena Garcia CMA * HeightAnswerDate of BlsdcddohhUkpell2963/15/2025 2:59 PM Luz Elena Garcia CMA * WeightAnswerDate of UvptnajakcLihxpt2729.6110/13/2024 2:59 PM Luz Elena Garcia CMA * Food InsecurityQuestionAnswerDate of AssessmentAuthorWithin the past 12 months the food we bought just didn't last and we didn't have money to get more.Never True08/12/2025 2:59 PM ESTCooper, Luz Elena, CMAWithin the past 12 months we worried whether our food would run out before we got money to buy more.Never True08/12/2025 2:59 PM Luz Elena Garcia CMA * FALL RISK ASSESSMENT COMPLETEDQuestionAnswerDate of AssessmentAuthorFall Risk Assessment Completed?Y110/13/2024 2:59 PM Luz Elena Garcia CMA * BEE (kcal)AnswerDate of UyhuvfstonFiqvqu304478/15/2025 2:59 PM Luz Elena Garcia CMA * Screening questionsQuestionAnswerDate of AssessmentAuthorAre you worried about falling?N110/13/2024 2:59 PM Luz Elena Garcia CMADo you feel unsteady when standing or walking?N110/13/2024 2:59 PM Luz lEena Garcia CMAHave you fallen in the past year?N110/13/2024 2:59 PM Luz Elena Garcia CNC MILLING MACHINE OPERATOR * Risk StratificationAnswerDate of AssessmentAuthorLow Risk08/12/2025 2:59 PM Luz Elena Garcia CMA * BSA (Calculated - sq m)AnswerDate of AssessmentAuthor1.5508/12/2025 2:59 PM Luz Elena Garcia CMA * BMI (Calculated)AnswerDate of IvozixfeokImpwfw1330/15/2025 2:59 PM Luz Elena Garcia CMA * Weight in (lb) to have BMI = 25AnswerDate of JnwyzzvoepHwelol424.312 2:59 PM Luz Elena Garcia CMA * Over the last 2 weeks, how often have you been bothered by any of the following problems?QuestionAnswerDate of AssessmentAuthorLittle interest or pleasure in doing /15/2025 2:59 PM Luz Elena Garcia CMAFeeling down, depressed, or /15/2025 2:59 PM Luz Elena Garcia CMATotal Score0 08/12/2025 2:59 PM Luz Elena Garcia CMA * BPAnswerDate of RkxaznedppNasngf222/9208/12/2025 3:19 PM Steven Maldonado DO * TempAnswerDate of IqyjpvxyvsDhmcau47.7110/13/2024 2:59 PM ESTLuz Elena Anderson, CNC MILLING MACHINE OPERATOR * Temp srcAnswerDate of XtnangvcgmGkcukqHnuiysip27/15/2025 2:59 PM ESTLuz Elena Anderson, CNC MILLING MACHINE OPERATOR * PulseAnswerDate of RirpuqbktiDveukk2120/15/2025 2:59 PM ESTLuz Elena Anderson, CNC MILLING MACHINE OPERATOR * CcJ7EhbvpzPlrz of XjoxzlktciJvowyd9313/15/2025 2:59 PM Luz Elena Garcia CNC MILLING MACHINE OPERATOR * HeightAnswerDate of NmmsnzyavtFhfoyy0170/15/2025 2:59 PM ESTLuz Elena Anderson, CNC MILLING MACHINE OPERATOR * WeightAnswerDate of NqmdejhzjcPffime4231.6110/13/2024 2:59 PM Luz Elena Garcia CNC MILLING MACHINE OPERATOR * BEE (kcal)AnswerDate of RspevejcikXrtgnu886996/15/2025 2:59 PM Luz Elena Garcia CNC MILLING MACHINE OPERATOR * BSA (Calculated - sq m)AnswerDate of AssessmentAuthor1.5508/12/2025 2:59 PM Luz Elena Garcia CNC MILLING MACHINE OPERATOR * BMI (Calculated)AnswerDate of GkingppeszGwixpe5937/15/2025 2:59 PM Luz Elena Garcia CNC MILLING MACHINE OPERATOR * Weight in (lb) to have BMI = 25AnswerDate of DxzlkxexitQdeilx392. 2:59 PM Luz Elena Garcia CNC MILLING MACHINE OPERATOR documented as of this encounter Mental Status * BPAnswerEntry DcpnKirpad589/9208/12/2025 3:19 PM Steven Maldonado DO * TempAnswerEntry KmwgNplrpy81.7110/13/2024 2:59 PM Luz Elena Garcia CNC MILLING MACHINE OPERATOR * Temp srcAnswerEntry LfdfXwyrkrZufotnbn18/15/2025 2:59 PM Luz Elena Garcia CNC MILLING MACHINE OPERATOR * PulseAnswerEntry MhxyJljhep0657/15/2025 2:59 PM Luz Elena Garcia CNC MILLING MACHINE OPERATOR * AmZ0FeyyegGcqrt AppdBieinh4490/15/2025 2:59 PM Luz Elena Garcia CNC MILLING MACHINE OPERATOR documented in this encounter Progress Notes * Steven Caraballo DO - 08/12/2025 2:45 PM EST IM PROGRESS NOTE Patient - Funmilayo Rainey Age - 70 y.o. - 1955 [facility] # - [id number] ASSESSMENT & PLAN 1. Essential hypertension (Primary) -goals of treatment reviewed with the patient -BP still elevated despite lisinopril plus bisoprolol -will add 3rd agent, amlodipine 5 mg daily -will have her take lisinopril in the morning, and amlodipine plus bisoprolol in the evening - POCT EKG - amLODIPine (NORVASC) 5 mg tablet; Take 1 tablet (5 mg total) by mouth in the evening. Dispense: 30 tablet; Refill: 2 - bisoprolol (ZEBETA) 10 mg tablet; Take 1 tablet (10 mg total) by mouth in the evening. 2. PVD (peripheral vascular disease) -patient with audible left femoral bruit and poor pulses -check arterial Doppler for AAA, as well as KAILEE lower extremities - Vas art doppler lwr limited single; Future - Vas AAA Screening; Future 3. Chest pain, unspecified type -EKG today abnormal with LVH, anteroseptal T-wave inversion and left atrial enlargement -patient having intermittent chest pain throughout the day -proceed with stress echocardiogram - Echo stress treadmill W/O contrast; Future Subjective CARDIOVASCULAR FOLLOW-UP This is a follow up of a pre-existing problem. Blood pressures are being checked outside the office. Frequency: daily, usually in the a.m. Readings have been high. BP readings outside the office range from 150 - 159 mmHg systolic and 80 - 89 mmHg diastolic. The 10-year ASCVD risk score (Griselda DK, et al., 2019) is: 19.5% Values used to calculate the score: Age: 70 years Clinically relevant sex: Female Is Non- : No Diabetic: No Tobacco smoker: Yes Systolic Blood Pressure: 146 mmHg Is BP treated: Yes HDL Cholesterol: 70 mg/dL Total Cholesterol: 179 mg/dL Patient reports following dosing instructions. Has been on lisinopril for a number of years at 20 mg daily. One-month ago, noticed an elevation in her blood pressure readings, and was started on bisoprolol 5 mg daily. Blood pressure readings remained high, and the bisoprolol was increased to 10 mg daily. Currently taking lisinopril 20 mg every morning, along with bisoprolol 10 mg every morning. Physical activity: Light activity such as walking her dog around the yd several times a day. No andexercise Dietary efforts show fairly healthy diet with limited sugars and fats. CV symptoms review was positive for chest pain and described as being a achy discomfort in her leftchest which will last for about 10-15 minutes at a time, and negative for dizziness, irregular heart beat, palpitations, syncope, and extremity edema A review of systems was negative except for the following: Respiratory: Still smoking cigarettes, approximately 1/2 pack daily. She has been cutting back overthe past month. Musculoskeletal: History of fibromyalgia and takes Tylenol 500 mg twice daily, along with Celebrex 100 mg b.i.d. several days a week. Celebrex is new, and started just about one-month ago.. Exam BP (!) 146/92 (BP Site: Left Arm, BP Postition: Sitting) Pulse 74 Temp 36.5 ??C (97.7 ??F) (Tympanic) Ht 162.6 cm (5' 4 ) Wt 52.9 kg (116 lb 9.6 oz) SpO2 97% BMI 20.01 kg/m?? Physical Exam Vitals reviewed. Constitutional: General: She is not in acute distress. HENT: Head: Normocephalic. Right Ear: External ear normal. Left Ear: External ear normal. Mouth/Throat: Mouth: Mucous membranes are moist. Eyes: General: No scleral icterus. Neck: Vascular: No carotid bruit. Cardiovascular: Rate and Rhythm: Normal rate and regular rhythm. Pulses: Normal pulses. Heart sounds: No murmur heard. No gallop. Comments: Diminished posterior tibial pulses bilaterally Pulmonary: Effort: Pulmonary effort is normal. Breath sounds: No wheezing or rales. Abdominal: Palpations: Abdomen is soft. Comments: Left femoral bruit Musculoskeletal: Right lower leg: No edema. Left lower leg: No edema. Lymphadenopathy: Cervical: No cervical adenopathy. Skin: General: Skin is warm and dry. Coloration: Skin is not jaundiced. Findings: No bruising. Neurological: Mental Status: She is alert. Motor: No weakness. Coordination: Coordination normal. Psychiatric: Mood and Affect: Mood normal. Behavior: Behavior normal. Meds Current Outpatient Medications: albuterol (PROVENTIL HFA;VENTOLIN HFA) 90 mcg/actuation inhaler, , Disp: , Rfl: atorvastatin (LIPITOR) 10 mg tablet, Take 1 tablet (10 mg total) by mouth in the morning., Disp: 90tablet, Rfl: 1 celecoxib (CeleBREX) 100 mg capsule, Take 1 capsule (100 mg total) by mouth 2 (two) times a day as needed for pain., Disp: 60 capsule, Rfl: 1 levothyroxine (SYNTHROID, LEVOTHROID) 100 MCG tablet, Take 1 tablet (100 mcg total) by mouth in themorning., Disp: 30 tablet, Rfl: 1 lisinopriL (PRINIVIL,ZESTRIL) 20 mg tablet, Take 1 tablet (20 mg total) by mouth in the morning., Disp: 30 tablet, Rfl: 1 traZODone (DESYREL) 50 mg tablet, Take 1 tablet (50 mg total) by mouth nightly., Disp: 30 tablet, Rfl: 1 venlafaxine XR (EFFEXOR XR) 75 mg 24 hr capsule, Take 1 capsule (75 mg total) by mouth in the morning., Disp: 90 capsule, Rfl: 1 venlafaxine XR (EFFEXOR-XR) 150 mg 24 hr capsule, take 1 capsule by mouth daily ALONG WITH 150 MG FOR A TOTAL DOSE OF 225 MG Strength: 150 mg, Disp: 90 capsule, Rfl: 2 amLODIPine (NORVASC) 5 mg tablet, Take 1 tablet (5 mg total) by mouth in the evening., Disp: 30 tablet, Rfl: 2 bisoprolol (ZEBETA) 10 mg tablet, Take 1 tablet (10 mg total) by mouth in the evening., Disp: , Rfl: Lab Results Clinical Support on 07/23/2025 Component Date Value Ref Range Status External Poct Urine Color 07/23/2025 yellow Final External Poct Urine Glucose 07/23/2025 Negative Final External Poct Urine Bilirubin 07/23/2025 Negative Final External Poct Urine Ketones 07/23/2025 Negative Final External Poct Urine Specific Gravi* 07/23/2025 1.010 Final External Poct Urine Blood 07/23/2025 Trace Final External Poct Urine Ph 07/23/2025 6.0 Final External Poct Urine Protein 07/23/2025 Negative Final External Poct Urine Urobilinogen 07/23/2025 0.2 Final External Poct Urine Nitrite 07/23/2025 Negative Final External Poct Urine Leukocyte Lois* 07/23/2025 Large Final Other Testing No results found. Steven Caraballo DO., [facility] Office: [phone] documented in this encounter Plan of Treatment DateTypeDepartmentCare Team (Latest Contact Info)Ddvowsmyjan63/16/2026 10:40 AM ESTOffice Visit [facility] [address] [place] [address] Patrice Tucker, CASH CLERK-HEALTHCARE BUSINESS ANALYST [address], [address] [address] 02/13/2026 10:40 AM EDTOffice Visit [facility] [address] [place] [address] Azul Almanza, CASH CLERK-HEALTHCARE BUSINESS ANALYST [address] [facility] [place] [address] NameTypePriorityAssociated DiagnosesDate/TimePOCT EKGECGRoutine Essential hypertension 08/12/2025 3:31 PM ESTdocumented as of this encounter Procedures Procedure NamePriorityDate/TimeAssociated DiagnosisCommentsPOCT EKGRoutine 08/12/2025 3:31 PM EST Essential hypertension documented in this encounter Results * Vas AAA Screening (08/20/2025 10:27 AM EST)Anatomical RegionLateralityModality VascularN/AUltrasoundSpecimen (Source)Anatomical Location / Laterality Collection Method / VolumeCollection TimeReceived Time08/20/2025 10:37 AM EST Narrative 08/20/2025 10:59 AM EST Aorta: Limited-AAA screening exam: Maximum aortic diameter is: 2.0 cm. Conclusions: No evidence of abdominal aortic aneurysm (AAA).Maximum aortic diameter is: 2.0 cm Procedure Note Rama Mcleod MD - 08/20/2025 Aorta: Limited-AAA screening exam: Maximum aortic diameter is: 2.0 cm. Conclusions: No evidence of abdominal aortic aneurysm (AAA).Maximum aortic diameter is: 2.0 cm Authorizing ProviderResult TypeResult StatusJohn Juliana Caraballo DOCV VASCULAR ORDERABLESFinal Result * Vas art doppler lwr limited single (08/20/2025 10:26 AM EST)Anatomical Region LateralityModalityVascularN/AUltrasoundSpecimen (Source)Anatomical Location / LateralityCollection Method / VolumeCollection TimeReceived Time08/20/2025 10:36 AM EST Narrative 08/20/2025 10:57 AM EST Right: Moderately abnormal PVR waveform contour at the ankle. PT KAILEE is 0.55; DP KAILEE is 0.53. TBI is 0.40. Monophasic common femoral, PT and DP CW Doppler waveforms. Left: Moderately abnormal PVR waveform contour at the ankle. PT KAILEE is 0.74; DP KAILEE is 0.85. TBI is0.42. Hyperemic common femoral and DP, and Monophasic PT CW Doppler waveforms. Conclusions: RIGHT: ??Lower extremity KAILEE ??is consistent with moderate arterial disease.TBI is in the range of mild to moderate arterial disease. LEFT:Lower extremity KAILEE ??is consistent with mild arterial disease.TBI is in the range of mild to moderate arterial disease. ? Procedure Note Rama Mcleod MD - 08/20/2025 Right: Moderately abnormal PVR waveform contour at the ankle. PT KAILEE is0.55; DP KAILEE is 0.53. TBI is 0.40. Monophasic common femoral, PT and DP CWDoppler waveforms. Left: Moderately abnormal PVR waveform contour at the ankle. PT KAILEE is0.74; DP KAILEE is 0.85. TBI is 0.42. Hyperemic common femoral and DP, andMonophasic PT CW Doppler waveforms. Conclusions: RIGHT: Lower extremity KAILEE is consistent with moderatearterial disease.TBI is in the range of mild to moderate arterial disease.LEFT:Lower extremity KAILEE is consistent with mild arterial disease.TBI isin the range of mild to moderate arterial disease. Authorizing ProviderResult TypeResult StatusSteven Andrews Ilya DOCV VASCULAR ORDERABLESFinal Result documented in this encounter Visit Diagnoses Diagnosis Essential hypertension- Primary Unspecified essential hypertension PVD (peripheral vascular disease) Unspecified peripheral vascular disease Chest pain, unspecified type PVD (peripheral vascular disease) Unspecified peripheral vascular disease PVD (peripheral vascular disease) Unspecified peripheral vascular disease documented in this encounter Additional Health Concerns AssessmentNoted TimePHQ-9 Depression Total Score: 2:59 PM ESTA Body Mass Index follow-up plan has been documented for the azbqocn8712/11/2024 2:08 PM EDTdocumented as of this encounter Care Teams Team MemberRelationshipSpecialtyStart DateEnd Date Azul Almanza, CASH CLERK-HEALTHCARE BUSINESS ANALYST [address] [facility] [place] [address] PCP - GeneralFamily Medicine02/27/25documented as of this encounter
--- OUTSIDE RECORDS SUMMARY | 2025-08-20 09:38 | XMS_ITS | Encounter Summary ---
Author Organization [employer] tem Address [facility] [id number] [address] [place] [address] Care Team Providers Care Safety Inspector Name Role Phone CamiFlorencioAzul Juliana [facility] Primary Care Provider + Reason for Referral * Vascular (Routine) - ClosedSpecialtyDiagnoses / ProceduresReferred By Contact Referred To Contact Diagnoses PVD (peripheral vascular disease) Procedures Vas art doppler lwr limited single Steven Caraballo DO [address] [place] [address] Phone: tel: fax: Referral IDStatusReasonStart DateExpiration DateVisits RequestedVisits [id number]/15/202512/15/202611 Reason for Visit * Vascular (Routine) - ClosedSpecialtyDiagnoses / ProceduresReferred By Contact Referred To Contact Diagnoses PVD (peripheral vascular disease) Procedures Vas art doppler lwr limited single Steven Caraballo DO [address] [place] [address] Phone: tel: fax: Referral IDStatusReasonStart DateExpiration DateVisits RequestedVisits [id number]/15/202512/15/202611 Encounter Details DateTypeDepartmentCare Team (Latest Contact Info)Ofrcguxvmkb59/23/2025 9:38 AM EST - 08/20/2025 10:34 AM ESTHospital Encounter [facility] [address] [place] [phone] Steven Caraballo, DO [address] [place] [address] PVD (peripheral vascular disease) Discharge Disposition: Home Social History Tobacco UseTypesPacks/DayYears UsedDateSmoking Tobacco: Every DayCigarettes0.535 Smokeless Tobacco: NeverAlcohol UseStandard Drinks/WeekCommentsNo0 (1 standard drink = 0.6 oz pure alcohol)Social Connection and Isolation PanelAnswerDate RecordedIn a typical week, how many times do you talk on the phone with family, friends, or neighbors?Once a week06/07/2021How often do you get together with friends or relatives?Once a week06/07/2021How often do you attend anglican or druze services?Never06/07/2021o you belong to any clubs or organizations such as anglican groups, unions, fraternal or athletic groups, or school groups?No 06/07/2021How often do you attend meetings of the clubs or organizations you belong to?Never06/07/2021re you , , , , never , or living with a partner?Nzoitxs2606/07/2021UDIT-CAnswerDate RecordedQ1: How often do you have a [...] care, and heating?Not hard at all03/27/2025PHQ-2AnswerDate RecordedTotal Pqwfk19710/13/2024 [place] [facility] [employer] - Occupational Stress Questionnaire [...] of a household?No03/27/2025hildcareAnswer Date RecordedDo problems getting childcare center administrator make it difficult for you to work [...] the highest degree you have received?GED or mqfvzykxno01/11/2021CommentsNoSex and Gender InformationValueDate RecordedSex Assigned at QjxjvTqcvbu94/17/2022 8:42 AM ESTLegal SexFemale 04/03/2015 11:40 AM EDTGender RmmwekzvEdqgew08/17/2022 8:42 AM ESTSexual KjirksrokcvGrlozhro59/17/2022 8:42 AM ESTdocumented as of this encounter Medications at Time of Discharge MedicationSigDispense QuantityRefillsLast FilledStart DateEnd Date albuterol (PROVENTIL HFA;VENTOLIN HFA) 90 mcg/actuation inhaler 10/18/2024 amLODIPine (NORVASC) 5 mg tablet Indications:Essential hypertensionTake 1 tablet (5 mg total) by mouth in the evening. 30 tablet atorvastatin (LIPITOR) 10 mg tablet Take 1 tablet (10 mg total) by mouth in the morning. 90 tablet bisoprolol (ZEBETA) 10 mg tablet Indications:Essential hypertensionTake 1 tablet (10 mg total) by mouth in the evening.08/12/2025 celecoxib (CeleBREX) 100 mg capsule Take 1 capsule (100 mg total) by mouth 2 (two) times a day as needed for pain. 60 capsule levothyroxine (SYNTHROID, LEVOTHROID) 100 MCG tablet Take 1 tablet (100 mcg total) by mouth in the morning. 30 tablet lisinopriL (PRINIVIL,ZESTRIL) 20 mg tablet Take 1 tablet (20 mg total) by mouth in the morning. 30 tablet traZODone (DESYREL) 50 mg tablet Take 1 tablet (50 mg total) by mouth nightly. 30 tablet venlafaxine XR (EFFEXOR XR) 75 mg 24 hr capsule Indications:Major depressive disorder with single episode, in partial remission Take 1 capsule (75 mg total) by mouth in the morning. 90 capsule venlafaxine XR (EFFEXOR-XR) 150 mg 24 hr capsule Indications:Major depressive disorder with single episode, in partial remission take 1 capsule by mouth daily ALONG WITH 150 MG FOR A TOTAL DOSE OF 225 MG Strength: 150 mg 90 capsule documented as of this encounter Plan of Treatment DateTypeDepartmentCare Team (Latest Contact Info)Fsuxrnncguy31/16/2026 10:40 AM ESTOffice Visit [facility] [address] [place] [phone] Patrice Tucker, SNOW REMOVING SUPERVISOR-MACHINE II CUTTER [address] [place] [address] 02/13/2026 10:40 AM EDTOffice Visit [facility] [address] [place] [address] Azul Almanza, SNOW REMOVING SUPERVISOR-MACHINE II CUTTER [address] [place] [address] documented as of this encounter Procedures Procedure NamePriorityDate/TimeAssociated DiagnosisCommentsVASC ARTERIAL DOPPLER LOWER LIMITED SINGLE (KAILEE)Dqovxdv8108/20/2025 10:26 AM EST PVD (peripheral vascular disease) documented in this encounter Results * Vas art doppler lwr limited single [...] to moderate arterial disease. Authorizing ProviderResult TypeResult StatusJotammi Caraballo DOCV VASCULAR ORDERABLESFinal Result documented in this encounter Visit Diagnoses Diagnosis PVD (peripheral vascular disease) Unspecified peripheral vascular disease documented in this encounter Additional Health Concerns AssessmentNoted TimePHQ-9 Depression Total Score: 2:59 PM ESTA Body Mass Index follow-up plan has been documented for the ugmwdma0412/11/2024 2:08 PM EDTdocumented as of this encounter Care Teams Team MemberRelationshipSpecialtyStart DateEnd Date Azul Almanza, SNOW REMOVING SUPERVISOR-MACHINE II CUTTER [address] [place] [address] PCP - GeneralFamily Medicine02/27/25documented as of this encounter
--- OUTSIDE RECORDS SUMMARY | 2025-08-20 09:38 | XMS_ITS | Encounter Summary ---
Author Organization [employer] tem Address [facility] [id number] [address] [place] [address] Care Team Providers Care Charging Machine Operator Name Role Phone Cami Azul Juliana [facility] Primary Care Provider + Reason for Referral * Vascular (Routine) - ClosedSpecialtyDiagnoses / ProceduresReferred By Contact Referred To Contact Diagnoses PVD (peripheral vascular disease) Procedures Vas AAA Screening Steven Caraballo DO [address] [place] [address] Phone: tel: fax: Referral IDStatusReasonStart DateExpiration DateVisits RequestedVisits [id number]/15/202512/15/202611 Reason for Visit * Vascular (Routine) - ClosedSpecialtyDiagnoses / ProceduresReferred By Contact Referred To Contact Diagnoses PVD (peripheral vascular disease) Procedures Vas AAA Screening Steven Caraabllo DO [address] [place] [address] Phone: tel: fax: Referral IDStatusReasonStart DateExpiration DateVisits RequestedVisits [id number]/15/202512/15/202611 Encounter Details DateTypeDepartmentCare Team (Latest Contact Info)Ymwrnawmsrh50/23/2025 9:38 AM EST - 08/20/2025 10:34 AM ESTHospital Encounter [facility] - Vascular [address] [place] [phone] Steven Caraballo, DO [address] [place] [address] PVD (peripheral vascular disease) Discharge Disposition: Home [...] relatives?Once a week06/07/2021How often do you attend christianity or orthodox services?Never1Do you belong to any clubs or organizations such as christianity groups, unions, fraternal or athletic groups, or school groups?No 06/07/2021How often do you attend meetings of the clubs or organizations you belong to?Never06/07/2021re you , , , , never , or living with a partner?Ipwyigd3106/07/2021UDIT-CAnswerDate RecordedQ1: How often do you have a [...] care, and heating?Not hard at all03/27/2025PHQ-2AnswerDate RecordedTotal Uyirr05510/13/2024 [place] [facility] Occupational [facility] - Occupational Stress Questionnaire [...] a household?No03/27/2025hildcareAnswer Date RecordedDo problems getting child support investigator make it difficult for you to work [...] the highest degree you have received?GED or /11/2021CommentsNoSex and Gender InformationValueDate RecordedSex Assigned at JgcawVoczca15/17/2022 8:42 AM ESTLegal SexFemale 04/03/2015 11:40 AM EDTGender FaflmwxxHhkase71/17/2022 8:42 AM ESTSexual LuktytjxiffYqcoshpj38/17/2022 8:42 AM ESTdocumented as of this encounter [...] Plan of Treatment DateTypeDepartmentCare Team (Latest Contact Info)Azmihnczuvo05/16/2026 10:40 AM ESTOffice Visit [facility] [address] [place] [place] [address] Patrice Tucker, DIRECTOR OF PHILANTHROPY-ENTRY WRITER [address] [place] [address] 02/13/2026 10:40 AM EDTOffice Visit [facility] [address] [place] [address] Azul Almanza, DIRECTOR OF PHILANTHROPY-ENTRY WRITER [address] [place] [address] documented as of this encounter Procedures Procedure NamePriorityDate/TimeAssociated DiagnosisCommentsVASC AAA SCREENING Irnhuac1108/20/2025 10:27 AM EST PVD (peripheral vascular disease) documented [...] diameter is: 2.0 cm Authorizing ProviderResult TypeResult StatusJotammi Caraballo DOCLaurent VASCULAR ORDERABLESFinal Result documented in this encounter Visit Diagnoses Diagnosis PVD (peripheral vascular disease) Unspecified peripheral vascular disease documented in this encounter Additional Health Concerns AssessmentNoted TimePHQ-9 Depression Total Score: 2:59 PM ESTA Body Mass Index follow-up plan has been documented for the oxtlkls3212/11/2024 2:08 PM EDTdocumented as of this encounter Care Teams Team MemberRelationshipSpecialtyStart DateEnd Date Azul Almanza, DIRECTOR OF PHILANTHROPY-ENTRY WRITER [address] [place] [address] PCP - GeneralFamily Medicine02/27/25documented as of this encounter
--- OUTSIDE RECORDS SUMMARY | 2025-08-20 10:35 | XMS_ITS | Encounter Summary ---
Author Organization [facility] [employer] [facility] tem Address [facility] [id number] [address] [place] [address] Care Team Providers Care Associate Engineer Name Role Phone Azul Almanza Juliana LABORATORY VETERINARIAN-BASEBALL SEWER HAND Primary Care Provider + Reason for Visit * Cardiology (Routine) - AuthorizedSpecialtyDiagnoses / ProceduresReferred By ContactReferred To Contact Diagnoses Chest pain, unspecified type Procedures Echo stress treadmill W/contrast Echo stress treadmill W/O contrast Steven Caraballo, DO [address] [place] [address] Phone: tel: fax: Referral IDStatusReasonStart DateExpiration DateVisits RequestedVisits [id number]/15/202512/15/202655 Encounter Details DateTypeDepartmentCare Team (Latest Contact Info)Byvxerjfynu96/23/2025 10:35 AM EST - 08/20/2025 11:59 PM ESTHospital Encounter [facility] - Cardiovascular [address] [place] [phone] Steven Caraballo, DO [address] [place] [address] Chest pain, unspecified type Discharge Disposition: Home Social History Tobacco UseTypesPacks/DayYears UsedDateSmoking Tobacco: Every DayCigarettes0.535 Smokeless Tobacco: Never Tobacco Cessation:Ready to Q uit: Not Asked; Counseling Given: Not Answered Alcohol UseStandard Drinks/WeekCommentsNo0 (1 standard drink = 0.6 oz pure alcohol)Social Connection and Isolation PanelAnswerDate RecordedIn a typical week, how many times do you talk on the phone with family, friends, or neighbors?Once a week06/07/2021How often do you get together with friends or relatives?Once a week06/07/2021How often do you attend hoahaoism or scientologist services?Never06/07/2021o you belong to any clubs or organizations such as hoahaoism groups, unions, fraternal or athletic groups, or school groups?No 06/07/2021How often do you attend meetings of the clubs or organizations you belong to?Never06/07/2021re you , , , , never , or living with a partner?Iinumja9806/07/2021UDIT-CAnswerDate RecordedQ1: How often do you have a [...] care, and heating?Not hard at all03/27/2025PHQ-2AnswerDate RecordedTotal Cesus79910/13/2024 [place]e [place] of Occupational Health - Occupational Stress Questionnaire [...] a household?No03/27/2025hildcareAnswer Date RecordedDo problems getting child protective services specialist make it difficult for you to work [...] the highest degree you have received?GED or yvjxhfzrgw97/11/2021CommentsNoSex and Gender InformationValueDate RecordedSex Assigned at SdiywLxipxd92/17/2022 8:42 AM ESTLegal SexFemale 04/03/2015 11:40 AM EDTGender AwstgkshPilgzh61/17/2022 8:42 AM ESTSexual HfeetzxpawhAuiljvuh13/17/2022 8:42 AM ESTdocumented as of this encounter Functional Status * Chaudhry Fall RiskQuestionAnswerDate of AssessmentAuthorHistory of Falling0 08/20/2025 6:46 AM Kierra Lopez, RNSecondary Atlyuypgg949/23/2025 6:46 AM Kierra Lopez, RNAmbulatory Bopc411 6:46 AM Kierra Lopez RNIntravenous Therapy/Heparin/Saline Iqya309 6:46 AM Kierra Kovacs RNGait/Jwobeqsnrcuu163/23/2025 6:46 AM Kierra Lopez RNMental Xnomqg932/23/2025 6:46 AM Kierra Lopez RNScore0110/21/2024 6:46 AM Kierra Lopez RN * Fall Risk ScaleQuestionAnswerDate of AssessmentAuthorFall Risk ScaleMorse Fall Risk Scale08/20/2025 6:46 AM Kierra Lopez RN * Respiratory (WDL)AnswerDate of TfmqbjidikQbqdmrKLQ83/23/2025 6:46 AM Kierra Kovacs RN documented as of this encounter Mental Status * Patient ID/EducationQuestionAnswerEntry DateAuthorPatient (parent/legal gaurdian) exam education completed at appropriate level of understanding - opp ortunity to ask questions offered.Yes08/20/2025 6:44 AM Kierra Lopez RN documented in this encounter Medications at Time of Discharge MedicationSigDispense QuantityRefillsLast FilledStart DateEnd Date albuterol (PROVENTIL HFA;VENTOLIN HFA) 90 mcg/actuation inhaler 10/18/2024 amLODIPine (NORVASC) 5 mg tablet Indications:Essential hypertensionTake 1 tablet (5 mg total) by mouth in the evening. 30 tablet aspirin 81 mg Indications:PVD (peripheral vascular disease)Take 1 tablet (81 mg total) by mouth in the morning. 90 tablet atorvastatin (LIPITOR) 10 mg tablet Take 1 tablet (10 mg total) by mouth in the morning. 90 tablet bisoprolol (ZEBETA) 10 mg tablet Indications:Essential hypertensionTake 1 tablet (10 mg total) by mouth in the evening.08/12/2025 celecoxib (CeleBREX) 100 mg capsule Take 1 capsule (100 mg total) by mouth 2 (two) times a day as needed for pain. 60 capsule cilostazoL (PLETAL) 50 mg tablet Indications:PVD (peripheral vascular disease)Take 1 tablet (50 mg total) by mouth in the morning and 1 tablet (50 mg total) before bedtime. 60 tablet levothyroxine (SYNTHROID, LEVOTHROID) 100 MCG tablet Take [...] Plan of Treatment DateTypeDepartmentCare Team (Latest Contact Info)Bzraagcpnyl20/16/2026 10:40 AM ESTOffice Visit [facility] [address] [place] [address] Patrice Tucker, LABORATORY VETERINARIAN-BASEBALL SEWER HAND [address], [address] [address] 02/13/2026 10:40 AM EDTOffice Visit [facility] [address] [place] [address] Azul Almanza, LABORATORY VETERINARIAN-BASEBALL SEWER HAND [address] [place] [address] documented as of this encounter Procedures Procedure NamePriorityDate/TimeAssociated DiagnosisCommentsECHO STRESS TREADMILL WITH SFWBADEWFyktdre09/23/2025 11:21 AM EST Chest pain, unspecified type documented in this encounter Results * Echo stress treadmill W/contrast (08/20/2025 11:21 AM EST)ComponentValueRef RangeTest MethodAnalysis TimePerformed AtPathologist SignatureTarget YP438tre XCELERAIECGExercise duration (min)2minXCELERAIECGExercise duration (sec)30sec KDBVLCFFABNDS319kzeTFSXYWSMJJCHmcnvi peak WO547yqwBMLSMZSEPEURddrioah Systolic KN746xaTjNSXPTBVPJEKKsbxtgofb QS08veToYQCDNZPBQDXQfwezu peak systolic BP159 mmHgXCELERAIECGDiastolic OO399jaJkBNRHZCEABGTJL247dkxPKQZXMFUAIDJpizrv recovery systolic QC507wwTuBDAQZXRIVIVWoftipfhq CN35hfAqTILDSSFLNNSIqjgadq HR 105%XCELERAIECGAortic root3.80cmXCELERAIECGMax MM of ST Depression0.0 XCELERAIECGAngina Pxmqn3ZOQANGXRUZBAshv Score2.50XCELERAIECGAnatomical Region LateralityModalityChestN/AUltrasound, OtherSpecimen (Source)Anatomical Location / LateralityCollection Method / VolumeCollection TimeReceived Time Narrative 08/20/2025 8:32 PM EST Resting echocardiogram shows normal left ventricle systolic function with an ejection fraction of 60-65% and no segmental wall motion abnormalities. ?Post exercise echocardiogram shows normal left ventricular systolic function with hyperdynamic function and no segmental wall motion abnormalities. ?No significant EKG changes noted with exercise ?Occasional PVCs in the early recovery phase ?Normal blood pressure response exercise ?Limited exercise tolerance due to leg fatigue and claudication Left Ventricle Systolic function is normal with an ejection fraction of 60-65%. No obvious regional wall motion abnormalities. Tricuspid Valve There is trace regurgitation. Aortic Valve There is no evidence of aortic valve stenosis. Study Details Treadmill stress echo with contrast was performed. During the study the apical and parasternal views were captured. Definity contrast was used during the study. Overall the study quality was adequate. The study was difficult due to patient's patient respiration. Stress Findings A stress exercise protocol was performed. A Adam protocol stress test was performed. Overall, the patient's exercise capacity was moderately impaired for their age. The patient reached stage 1 of the protocol after exercising for 2 min 30 sec. Patient achieved a maximal heart rate of 160 bpm (105%of maximum predicted heart rate). The patient experienced no angina during the test. The test was stopped because the patient experienced fatigue, dyspnea, leg pain and shortness of breath. The patient achieved the target heart rate. The patient requested the test to be stopped. The test was stopped due to target heart rate achieved. The patient reported dyspnea, leg pain, fatigue, muscle fatigueand shortness of breath during the stress test. Symptoms began during stress and ended during recovery. The patient's response to stress was inadequate for diagnosis. Blood pressure demonstrated a normal response to stress. The patient's heart rate recovery was deconditioned. ECG Baseline ECG indicates sinus tachycardia and IVCD. Arrhythmias during stress: PVC. PVC's were occasional. . These were noted in the early recovery phase. Overall, the patient's functional capacity was markedly below average. The stress ECG was negative.The calculated Iglesias Treadmill Score of 2.5 represents an intermediate risk only with regards to theexercise findings. Echo Post Stress The post-stress echo showed normal wall motion which was hyperdynamic compared to baseline. Study Impression The study is normal. Wall Scoring Baseline Score Index: 1.00 The left ventricular wall motion is normal. Wall Scoring Stress Score Index: 1.00 The left ventricular wall motion is globally hyperkinetic. Authorizing ProviderResult TypeResult StatusSteven Caraballo DOCV STRESS ORDERABLES Final Result documented in this encounter Visit Diagnoses Diagnosis Chest pain, unspecified type documented in this encounter Administered Medications Medication OrderMAR ActionAction DateDoseRateSite perflutren lipid microspheres (DEFINITY) dilution injection 1.43 mg/10 mL 2 mL, intravenous, Once in imaging, contrast, Starting on Tue08/20/25 at 1048, For 1 dose, Dilute 1.3 mL of Definity with 8.7 mL 0.9% NaCl in 10 mL syringe. Administer 2 mL perflutren (Definity) contrast if 2 contiguous segments of the LV are not well visualized. May repeat 2 mL dose until LV visualization is accomplished. Procedure total dose not to exceed 10 mL. Given08/20/2025 11:00 AM EST2 mLdocumented in this encounter Additional Health Concerns AssessmentNoted TimePHQ-9 Depression Total Score: 2:59 PM ESTA Body Mass Index follow-up plan has been documented for the cnvoobh2012/11/2024 2:08 PM EDTdocumented as of this encounter Care Teams Team MemberRelationshipSpecialtyStart DateEnd Date Azul Almanza, LABORATORY VETERINARIAN-BASEBALL SEWER HAND [address] [place] [address] PCP - GeneralFamily Medicine02/27/25documented as of this encounter
[2025-08-24] VITALS (11 sets, daily range): BP systolic 104–129; BP diastolic 76–82; PULSE 82–96; TEMP 36.4; O2SAT 90–100; BMI 20.8
--- NOTE | 2025-08-24 12:31 | XR_ITS ---
[address] [address] Patient Name: ZHEN OCAMPO MRN: [id number] date: 1955 Sex: F Assigned Patient Location: ER Current Patient Location: Accession/Order Number: [id number] Exam Date: 08/24/2025 13:05 Report Date: 08/24/2025 14:11 At the request of: VIKRAM WILD DO Procedure: XR chest 2V Plain film chest 2 view HISTORY: Cough and shortness of breath COMPARISON: CT chest 10/18/2024 FINDINGS: SUPPORT DEVICES: None POSTSURGICAL CHANGES: None HEART: Within normal limits PULMONARY ESTHELA: Within normal limits MEDIASTINUM: Unremarkable LUNGS AND PLEURA: No acute lung process, pleural effusion or pneumothorax identified. Hyperinflation BONY STRUCTURES: Intact ADDITIONAL FINDINGS None XR/XR chest 2V IMPRESSION: No acute process. Impression dictated by: Luis Ku M.D. 08/24/2025 2:11 PM Dictation Location: [email or web address] Electronically authenticated by: [id number] Y Date: 08/24/2025 14:11
--- NOTE | 2025-08-24 12:32 | ECG_ITS ---
[facility] Test Date: 2025-08-24 Pat Name: ZHEN OCAMPO Department: Room: - Gender: Female Second Vp Hr Assessment: : 1955 Requested By: [id number] Order Number: [id number] Reading MD: DEWAYNE BRADFORD M.D. Measurements Intervals [place] Rate: 81 P: 79 MT: 164 QRS: 70 QRSD: 90 T: 62 QT: 382 QTc: 420 Interpretive Statements 1100 Sinus rhythm 9110 normal ECG Compared to ECG 10/18/2024 13:48:56 No significant changes Electronically Signed On 08-25-2025 13:07:31 EST by DEWAYNE BRADFORD M.D.
--- OUTSIDE RECORDS SUMMARY | 2025-08-24 12:41 | XMS_ITS | CCD ---
Author Organization [facility] Care Team Providers Care Printing Grey Cloth Tender Name Role Phone Victor Manuel PVC MONITOR-SAUSAGE SMOKER, Jacob High Primary Care Provid er JACOB RUSH Referring Unavailable RUSH, JACOB J Primary Care Unavailable RUSH, JACOB J Referring Unavailable RUSH, JACOB J Primary Care Unavailable RUSH, JACOB J Referring Unavailable RUSH, JACOB Anila Primary Care Unavailable RUSH, JACOB High Referring Unavailable RUSH, JACOB High Primary Care Unavailable RUSH, JACOB J Referring Unavailable RUSH, JACOB Anila Primary Care Unavailable RUSH, JACOB J Referring Unavailable RUSH, JACOB Anila Primary Care Unavailable RUSH, JACOB Anila Referring Unavailable URSH, JACOB Anila Primary Care Unavailable Rush PVC MONITOR-SAUSAGE SMOKER, Jacob Anila Primary Care Provid er Jenny PVC MONITOR-SAUSAGE SMOKERMoises Primary Care Provider Jenny PVC MONITOR-SAUSAGE SMOKERMoises Primary Care Provider JACOB RUSH Attending Unavailable RAJINDER RUSHERIE J Referring Unavailable RUSH, JACOB J Primary Care Unavailable RUSH, JACOB Anila Attending Unavailable TOBY RUSHE Anila Referring Unavailable RUSH, JACOB Anila Primary Care Unavailable JACOB RUSH Attending Unavailable RAJINDER RUSHERIE J Referring Unavailable RUSH, JACOB J Primary Care Unavailable RUSH, JACOB J Attending Unavailable RUSH, JACOB J Referring Unavailable RUSH, JACOB J Primary Care Unavailable MOISES ALVARADO Attending Unavailable JACOB RUSH Referring Unavailable JENNYMOISES Primary Care Unavailable JENNYMOISES Attending Unavailable JENNYMOISES Referring Unavailable JENNY, MOISES L Primary Care Unavailable Medications Current Medications MedicationDrug Class(es)DatesSig (Normalized)Sig (Original)[id number] 200 actuat albuterol 0.09 mg/actuat metered dose inhaler (9 sources)beta2-Adrenergic AgonistStart: 64-44-6996armeqqqom (PROVENTIL HFA;VENTOLIN HFA) 90 mcg/actuation inhaler 10/18/2024 ActiveStart: 10-18-2024 take 2 puff(s) by mouth every four hours as needed for wheezingalbuterol (PROVENTIL HFA;VENTOLIN HFA) 90 mcg/actuation inhaler INHALE 2 PUFFS BY MOUTH EVERY 4 HOURS NEEDED for SHORTNESS OF BREATH and FOR WHEEZING 10/18/2024 Activeatorvastatin 10 mg oral tablet (7 sources)HMG-CoA Reductase InhibitorStart: 11-73-6928cjqu 1 tablet by mouth in the morningatorvastatin (LIPITOR) 10 mg tablet Take 1 tablet (10 mg total) by mouth in the morning. 90 tablet 1 03/29/2025 Activebisoprolol fumarate 5 mg oral tablet (14 sources)beta-Adrenergic BlockerStart: 05-08-2024 End: 08-52-5976pibu 1 tablet by mouth in the morningbisoprolol (ZEBETA) 5 mg tablet Indications: Essential hypertension Take 1 tablet (5 mg total) by mouth in the morning. 90 tablet 1 06/17/2025 Activecelecoxib 100 mg oral capsule (2 sources)Nonsteroidal Anti-inflammatory DrugStart: 58-63-2680cvir 1 capsule by mouth twice daily as needed for paincelecoxib (CeleBREX) 100 mg capsule Take 1 capsule (100 mg total) by mouth 2 (two) times a day as needed for pain. 60 capsule 1 07/05/2025 Activelevothyroxine sodium 0.1 mg oral tablet (14 sources)l-ThyroxineStart: 09-91-7521iehx 1 tablet by mouth in the morning levothyroxine (SYNTHROID, LEVOTHROID) 100 MCG tablet Take 1 tablet (100 mcg total) by mouth in the morning. 30 tablet 1 07/08/2025 ActiveStart: 04-02-2025 End: 06-36-3423ricg 1 tablet by mouth in the morninglevothyroxine (SYNTHROID, LEVOTHROID) 88 MCG tablet Take 1 tablet (88 mcg total) by mouth in the morning. 90 tablet 1 04/02/2025 07/08/2025 DiscontinuedStart: 05-08-2024 End: 58-03-0254kigc 1 tablet by mouth in the morninglevothyroxine (SYNTHROID, LEVOTHROID) 100 MCG tablet Indications: Acquired hypothyroidism Take 1 tablet (100 mcg total) by mouth in the morning. 90 tablet 1 05/08/2024 04/02/2025 Discontinued (Therapy completed)lidocaine 0.05 mg/mg medicated patch (2 sources)Antiarrhythmic, Amide Local AnestheticStart: 55-99-9618sjfwk 1 dose transdermal route once daily, then apply 1 dose transdermal route every twelve hourslidocaine (LIDODERM) 5 % Place 1 patch on the skin daily. Remove & Discard patch within 12 hours or as directed by 10 patch 07/05/2025 Activelisinopril 20 mg oral tablet (2 sources)Angiotensin Converting Enzyme InhibitorStart: 52-55-5513lain 1 tablet by mouth in the morninglisinopriL (PRINIVIL,ZESTRIL) 20 mg tablet Take 1 tablet (20 mg total) by mouth in the morning. 30 tablet 1 07/05/2025 ActivepredniSONE 20 mg oral tablet (6 sources)Start: 07-05-2025 End: 36-04-0332enip 1 tablet by mouth in the morning, then take 1 tablet by mouth at bedtimepredniSONE (DELTASONE) 20 mg tablet Take 1 tablet (20 mg total) by mouth in the morning and 1 tablet (20 mg total) before bedtime. Do all this for 5 days. 10 tablet 07/05/2025 07/10/2025 ActiveStart: 10-10-2024 End: 88-34-0475gzqldfKHSR (DELTASONE) 20 mg tablet Indications: Fibromyalgia affecting multiple sites Take 1 tablet (20 mg total) by mouth See Admin Instructions. 1 tab 2x daily x3 days, 1 tab daily x3 days, 1/2 tablet daily x4 days 11 tablet 10/10/2024 12/11/2024 Discontinued (Therapy completed) sulfamethoxazole 800 mg / trimethoprim 160 mg oral tablet (2 sources)Dihydrofolate Reductase Inhibitor Antibacterial, Sulfonamide AntimicrobialStart: 10-10-2024 End: 77-15-1487nhey 1 tablet by mouth once in the morningsulfamethoxazole- trimethoprim (BACTRIM DS) 800-160 mg per tablet Indications: Acute cystitis without hematuria Take 1 tablet by mouth in the morning and 1 tablet before bedtime. Do all this for 10 days. Take with food. 20 tablet 10/10/2024 10/10/2024 Discontinued (Reorder)traZODone hydrochloride 50 mg oral tablet (2 sources)Serotonin Reuptake InhibitorStart: 74-62-6746pklr 1 tablet by mouth once dailytraZODone (DESYREL) 50 mg tablet Take 1 tablet (50 mg total) by mouth nightly. 30 tablet 1 07/05/2025 Onadxp56 hr venlafaxine 150 mg extended release oral capsule (20 sources)Serotonin and Norepinephrine Reuptake InhibitorStart: 14-46-2225suho 1 capsule by mouth once dailyvenlafaxine XR (EFFEXOR-XR) 150 mg 24 hr capsule Indications: Major depressive disorder with singleepisode, in partial remission take 1 capsule by mouth daily ALONG WITH 150 MG FOR A TOTAL DOSE OF 225 MG Strength: 150 mg 90 capsule 2 01/08/2025 ActiveStart: 98-57-3296ktiq 1 capsule by mouth once dailyvenlafaxine XR (EFFEXOR-XR) 150 mg 24 hr capsule Indications: Major depressive disorder with singleepisode, in partial remission take 1 capsule by mouth daily ALONG WITH 150 MG FOR A TOTAL DOSE OF 225 MG Strength: 150 mg 90 capsule 1 01/07/2025 ActiveStart: 05-08-2024 End: 50-61-8460fjoq 1 capsule by mouth every twenty-four hours in the morning venlafaxine XR (EFFEXOR XR) 75 mg 24 hr capsule Indications: Major depressive disorder with single episode, in partial remission Take 1 capsule (75 mg total) by mouth in the morning. 90 capsule 1 12/11/2024 ActiveStart: 05-08-2024 End: 62-05-5816bfzu 1 capsule by mouth once dailyvenlafaxine XR (EFFEXOR-XR) 150 mg 24 hr capsule Indications: Major depressive disorder with singleepisode, in partial remission take 1 capsule by mouth daily ALONG WITH 150 MG FOR A TOTAL DOSE OF 225 MG Strength: 150 mg 90 capsule 1 12/11/2024 01/04/2025 Discontinued (Reorder) Completed/Discontinued Medications MedicationDrug Class(es)DatesSig (Normalized)Sig (Original)acetaminophen 325 mg / HYDROcodone bitartrate 5 mg oral tablet (15 sources)Opioid AgonistStart: 07-11-2024 End: 58-74-8881QQJVLwsauvr-acetaminophen (NORCO) 5-325 mg per tablet Indications: Fibromyalgia affecting multiple sites , Hx of decompressive lumbar laminectomy Take 1 tablet by mouth every 12 (twelve) hours as needed for pain. Max Daily Amount: 2 tablets 50 tablet 03/29/2025 07/05/2025 Discontinued (Patient Stopped On Own)cariprazine 3 mg oral capsule (4 sources)Atypical AntipsychoticStart: 08-16-2024 End: 49-38-2617usmy 1 capsule by mouth in the morningcariprazine (VRAYLAR) 3 mg capsule Indications: Current moderate episode of major depressive disorder without prior episode (CMS-HCC) Take 1 capsule (3 mg total) by mouth in the morning. 30 capsule 08/16/2024 12/11/2024 Discontinued (Patient Stopped On Own) gabapentin 300 mg oral capsule (12 sources)Anti-epileptic AgentStart: 05-08-2024 End: 60-23-5494bfeh 1 capsule by mouth at bedtimegabapentin (NEURONTIN) 300 mg capsule Indications: Fibromyalgia affecting multiple sites TAKE 1 CAPSULE BY MOUTH AT BEDTIME 90 capsule 1 11/15/2024 07/05/2025 Discontinued (Therapy completed)simvastatin 5 mg oral tablet (7 sources)HMG-CoA Reductase InhibitorStart: 05-08-2024 End: 25-95-2472sval 1 tablet by mouth once dailysimvastatin (ZOCOR) 5 mg tablet Indications: Mixed hyperlipidemia Take 1 tablet (5 mg total) by mouth nightly. 90 tablet 2 12/11/2024 03/29/2025 Discontinued (Therapy completed) Problems Active Problems Problem ClassificationProblemDateDocumented DateEpisodic/ChronicAnxiety disorders (12 sources)Anxiety; 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: [Anxiety disorder, unspecified]09-15-2017 ChronicDiseases of white blood cells (1 source)Elevated white blood cell count, unspecified; 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: [Elevated white blood cell count, unspecified]Onset: 45-27-9196QfjcoyrTvdxpnfew of lipid metabolism (15 sources)Mixed hyperlipidemia; 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: [Mixed hyperlipidemia]Onset: 355988-20-9419DjfpqcpCuphguhocc disorders (12 sources)Gastroesophageal reflux disease; 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: [Gastro-esophageal reflux disease without esophagitis]85-60-7653BntifrlVfplgyabb hypertension (17 sources)Hypertensive disorder; 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: [Essential (primary) hypertension]Onset: 734911-71-5882PuhyxwfLhuk disorders (20 sources)Moderate major depression, single episode; 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: [Major depressive disorder, single episode, moderate]Onset: 279405-73-7382Ofikbki Nutritional deficiencies (12 sources)Vitamin D deficiency; 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: [Vitamin D deficiency, unspecified]Onset: 930274-63-5949CjzwcdyYhqkx aftercare (1 source)Drug therapy finding; 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: [Other care home (current) drug therapy]40-90-5548RrveohtxGeoou connective tissue disease (12 sources)Primary fibromyalgia syndrome; 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: [Fibromyalgia] 87-49-7470QidirywnRhkjy gastrointestinal disorders (12 sources)Irritable bowel syndrome; 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: [Irritable bowel syndrome without diarrhea]02-57-5211XjijnqyOchai nervous system disorders (9 sources)Chronic low back pain; 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: [Other chronic pain]Onset: 072760-70-0278UdnnrnhPywvk non-traumatic joint disorders (12 sources)Arthritis; 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: [Polyarthritis, unspecified]Onset: 558548-15-9701BxxqxgeZlpcfxczhad; intervertebral disc disorders; other back problems (4 sources)Chronic low back pain; 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: [Lumbago with sciatica, unspecified side]Onset: 329730-61-0064XlorjfwtIhdjkysti-mztuwfq disorders (4 sources)Smoker; 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: [Nicotine dependence, unspecified, uncomplicated]Onset: 848722-13-7183KqzictsGfzcyoy disorders (16 sources)Hypothyroidism; 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: [Hypothyroidism, unspecified]Onset: 903043-68-7478XqrbgmgXcieylxqgjhu (1 source)Annual ExamOnset: 08-53-3274Rsldlfwutwyh (1 source)Not feeling her self. feeling BlueOnset: 07-11-2024 Past or Other Problems Problem ClassificationProblemDateDocumented DateEpisodic/ChronicDeficiency and other anemia (13 sources)Iron deficiency anemia; 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: [Other iron deficiency anemias]Onset: 776972-67-2416AnqgfhahGqajvvmkxk and other anemia (2 sources)Other iron deficiency anemias; 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: [Other iron deficiency anemias]Onset: 37-75-8910PypxvsfhYmyqliorimftbanp hemorrhage (12 sources)Rectal hemorrhage; 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: [Hemorrhage of anus and rectum] Onset: 09-15-2017 Resolved: 368747-28-3394YeystzgrHvmtvoouqtjzh symptoms and ill-defined conditions (2 sources)Dysuria; 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: [Dysuria]Onset: 304507-25-7071Qqitdnwv Immunizations and screening for infectious disease (12 sources)Needs influenza immunization; 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: [Encounter for immunization]Onset: 09-15-2017 Resolved: 124379-98-0330QjifwtobBelmlqg and fatigue (13 sources)Fatigue; 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: [Other fatigue]Onset: 09-15-2017 Resolved: 387137-48-6040NpijycjnAzgf disorders (12 sources)Mood disordersOnset: 09-13-2024 Resolved: 929418-99-1771Gwunngdynqt deficiencies (12 sources)Cobalamin deficiency; 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: [Deficiency of other specified B group vitamins]Onset: 506733-31-4868TbrzqvvbPocue aftercare (1 source)detention (current) use of opiate analgesic; 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: [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]Onset: 36-37-8808QbrneaxbBmeub aftercare (1 source)Encounter for therapeutic drug level monitoring; 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: [Encounter for therapeutic drug level monitoring]Onset: 73-60-7728VfyvzfphLyyoy aftercare (1 source)Other ferry terminal 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; 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: [Other ferry terminal 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]Onset: 33-82-8010HnggzdecDseul bone disease and musculoskeletal deformities (12 sources)Osteopenia; 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: [Other specified disorders of bone density and structure, multiple sites]Onset: 613553-35-1612HgyrryniHpieb connective tissue disease (17 sources)Fibromyalgia; 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: [Fibromyalgia]Onset: 02-05-2020 48-58-4149AkuqiwbkMijcy connective tissue disease (1 source)Fibromyalgia; 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: [Fibromyalgia]Onset: 58-20-2383Gnwnpunz Other ear and sense organ disorders (12 sources)Impacted cerumen of bilateral ears; 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: [Impacted cerumen, bilateral]Onset: 09-18-2017 Resolved: 459663-76-7051CkeasptaPzgtj gastrointestinal disorders (12 sources)Constipation; 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: [Constipation, unspecified]Onset: 757143-10-3868JtoqctgmSboni liver diseases (1 source)Abnormal levels of other serum enzymes; 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: [Abnormal levels of other serum enzymes]Onset: 74-37-2509RkfntmpxEwhmp nervous system disorders (12 sources)Paresthesia of lower extremity; 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: [Anesthesia of skin] Onset: 05-22-2018 Resolved: 011137-38-3798IaqzcxdaBwdlt screening for suspected conditions (not mental disorders or infectious disease) (18 sources)Patient encounter status; 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: [Encounter for other screening for malignant neoplasm of breast]Onset: 753129-28-6208Caaywuib Pneumonia (except that caused by tuberculosis or sexually transmitted disease) (1 source)Pneumonia, unspecified organism; 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: [Pneumonia, unspecified organism]Onset: 36-12-4040BupyzulmIuqnrnmo codes; unclassified (12 sources)Postmenopausal state; 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: [Asymptomatic menopausal state] Onset: 381772-33-5190ZleckrqpWlgumnii codes; unclassified (12 sources)Menopause present; 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: [Asymptomatic menopausal state] Onset: 188633-20-9577DuqctmfxMyesbsqg codes; unclassified (1 source)Other specified postprocedural states; 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: [Other specified postprocedural states]Onset: 81-43-0282AcdqndzfGqgwyouza and history of mental health and substance abuse codes (2 sources)Personal history of nicotine dependence; 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: [Personal history of nicotine dependence]Onset: 02-33-0013OsxsiclqBdalsbgsvbwd (12 sources)Onset: 09-13-2024 Resolved: 501974-42-1307Lxfxabo tract infections (4 sources)Acute cystitis without hematuria; 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: [Acute cystitis] Onset: 305811-36-8797Cuyndjzb Results Test NameValueInterpretationReference RangeFacilityTHYROID PROFILE INCLUDES TSH FT4on 84-40-6806Hmub T4 [Mass/Vol]0.85 ng/dLNormal0.61-1.60[facility] Ambulatory PPGComment on above:Performed By: #### THYR #### [facility] ([facility]) [address] [place] [address] VIRTSH7.70 uIU/mLHigh0.49-4.67[facility] Ambulatory PPG Comment on above:Performed By: #### THYR #### [facility] ([facility]) [address] [place] [address] VIRCBC WITH AUTO DIFFERENTIALon 61-52-5055COTEQWDUD ABSOLUTE COUNT (10*3/UL) BY AUTOMATED COUNT0.1 10*3/uLNormal0.0-0.2PWooster [facility] Ambulatory PPGComment on above:Performed By: #### CBCA #### [facility] ([facility]) [address] [place] [address] VIRBASOPHILS RELATIVE PERCENT BY AUTOMATED COUNT1.0 %Normal [facility] Ambulatory PPGComment on above:Performed By: #### CBCA #### [facility] ([facility]) [address] [place] [address] VIRCELLAVISION DIFFERENTIAL TYPEAUTOMATED DIFFERENTIALNormal [facility] Ambulatory PPGComment on above:Performed By: #### CBCA #### [facility] ([facility]) [address] [place] [address] VIREosinophils (Bld) [#/Vol]0.2 10*3/uLNormal0.0-0.4[facility] Ambulatory PPGComment on above:Performed By: #### CBCA #### [facility] ([facility]) [address] [place] [address] VIREOSINOPHILS RELATIVE PERCENT BY AUTOMATED COUNT2.3 %Normal [facility] Ambulatory PPGComment on above:Performed By: #### CBCA #### [facility] ([facility]) [address] [place] [address] VIRErythrocyte distribution width (RBC) [Ratio]14.1 %Normal 11.5-15[facility] Ambulatory PPGComment on above:Performed By: #### CBCA #### [facility] ([facility]) [address] [place] [address] VIRHematocrit (Bld) [Volume fraction]45.3 %Akzzog81-82[facility]xq[facility] Ambulatory PPGComment on above:Performed By: #### CBCA #### [facility] ([facility]) [address] [place] [address] VIRHemoglobin (Bld) [Mass/Vol]14.6 g/lKGllpqf47.7-15.5PWooster [facility] Ambulatory PPGComment on above:Performed By: #### CBCA #### [facility] ([facility]) [address] [place] [address] VIRLYMPHOCYTES ABSOLUTE COUNT (10*3/UL) BY AUTOMATED COUNT4.1 10*3/uLHigh1.0-3.5PWooster [facility] Ambulatory PPGComment on above:Performed By: #### CBCA #### [facility] ([facility]) [address] [place] [address] VIRLYMPHOCYTES RELATIVE PERCENT BY AUTOMATED COUNT40.7 %Normal [facility] Ambulatory PPGComment on above:Performed By: #### CBCA #### [facility] ([facility]) [address] [place] [address] VIRMCH (RBC) [Entitic mass]26.8 xoOmx56-10AxyLwwoia Hospital Ambulatory PPGComment on above:Performed By: #### CBCA #### [facility] ([facility]) [address] [place] [address] VIRMCHC (RBC) [Mass/Vol]32.2 g/eZPqyvlq19-87EvnJpmgor Hospital Ambulatory PPGComment on above:Performed By: #### CBCA #### [facility] ([facility]) [address] [place] [address] VIRMCV (RBC) [Entitic vol]83 jFKbzktg59-915PbgWyvevd Hospital Ambulatory PPGComment on above:Performed By: #### CBCA #### [facility] ([facility]) [address] [place] [address] VIRMONOCYTES ABSOLUTE COUNT (10*3/UL) BY AUTOMATED COUNT0.7 10*3/uLNormal0.0-0.9[facility] Ambulatory PPGComment on above:Performed By: #### CBCA #### [facility] ([facility]) [address] [place] [address] VIRMONOCYTES RELATIVE PERCENT BY AUTOMATED COUNT7.1 %Normal [facility] Ambulatory PPGComment on above:Performed By: #### CBCA #### [facility] ([facility]) [address] [place] [address] VIRNEUTROPHILS ABSOLUTE COUNT BY AUTOMATED COUNT4.9 10*3/uL Normal1.5-6.6[facility] Ambulatory PPGComment on above:Performed By: #### CBCA #### [facility] ([facility]) [address] [place] [address] VIRNEUTROPHILS RELATIVE PERCENT BY AUTOMATED COUNT48.9 %Normal [facility] Ambulatory PPGComment on above:Performed By: #### CBCA #### [facility] ([facility]) [address] [place] [address] VIRPlatelet mean volume (Bld) [Entitic vol]8.6 fLNormal7-12 [facility] Ambulatory PPGComment on above:Performed By: #### CBCA #### [facility] ([facility]) [address] [place] [address] VIRPlatelets (Bld) [#/Vol]451 10*3/cKTmxk575-984OfyGyoumn Hospital Ambulatory PPGComment on above:Performed By: #### CBCA #### [facility] ([facility]) [address] [place] [address] VIRRBC COUNT5.44 X10E12/LHigh3.8-5.2PWooster Community [facility] Ambulatory PPGComment on above:Performed By: #### CBCA #### [facility] ([facility]) [address] [place] [address] VIRWBC (Bld) [#/Vol]10.1 10*3/uLNormal4-11[facility] Ambulatory PPGComment on above:Performed By: #### CBCA #### [facility] ([facility]) [address] [place] [address] VIRCBC auto differentialon [id number] (Bld) [#/Vol]0.1 10*3/uL0.0 - 0.2 10*3/uLPomerene HospitalBasophils/100 WBC (Bld)1 % Pomerene HospitalDifferential cell count method Nom (Bld)AUTOMATED DIFFERENTIALPomerene HospitalEosinophils (Bld) [#/Vol]0.2 10*3/uL0.0 - 0.4 10*3/uLPomerene HospitalEosinophils/100 WBC (Bld)2.3 %[facility]ome[facility] HospitalErythrocyte distribution width (RBC) [Ratio]14.1 %11.5 - 15 %[facility] HospitalHematocrit (Bld) [Volume fraction]45.3 %35 - 47 %[facility] HospitalHemoglobin (Bld) [Mass/Vol]14.6 g/dL11.7 - 15.5 g/dLPomerene HospitalInterpretation and review of laboratory resultsAbnormalPomerene HospitalLymphocytes (Bld) [#/Vol]4.1 10*3/uLHigh1.0 - 3.5 10*3/uLPomerene HospitalLymphocytes/100 WBC (Bld)40.7 %[facility] HospitalH (RBC) [Entitic mass]26.8 pgLow27 - 34 [facility] HospitalMCHC (RBC) [Mass/Vol]32.2 g/dL32 - 36 g/dLPomerene HospitalMCV (RBC) [Entitic vol]83 fL80 - 100 fL [facility] HospitalMonocytes (Bld) [#/Vol]0.7 10*3/uL0.0 - 0.9 10*3/uL [facility] HospitalMonocytes/100 WBC (Bld)7.1 %[facility] Neutrophils (Bld) [#/Vol]4.9 10*3/uL1.5 - 6.6 10*3/uLPomerene Hospital Neutrophils/100 WBC (Bld)48.9 %[facility] HospitalPlatelet mean volume (Bld) [Entitic vol]8.6 fL7 - 12 [facility] CenterPlatelets (Bld) [#/Vol]451 10*3/uLCarilion New River Valley Medical CenterRBC (Bld) [#/Vol]5.44 10*6/uLCarilion New River Valley Medical CenterWBC LM Ql (Sput)10.1PFirst [facility] COMPREHENSIVE METABOLIC PANELon 23-54-2312Snaacrj [Mass/Vol]4.5 g/dLNormal 3.2-5.3PWooster Community Hospital Ambulatory PPGComment on above:Performed By: #### CMP #### [facility] ([facility]) [address] [place] [address] VIRALP [Catalytic activity/Vol]97 U/VDsdkon13-709WovVfjyyt Hospital Ambulatory PPGComment on above:Performed By: #### CMP #### [facility] ([facility]) [address] [place] [address] VIRALT [Catalytic activity/Vol]7 U/LNormal<=31PWooster Community [facility] Ambulatory PPGComment on above:Performed By: #### CMP #### [facility] ([facility]) [address] [place] [address] VIRAnion gap [Moles/Vol]11 mmol/LNormal5-15[facility] Ambulatory PPGComment on above:Performed By: #### CMP #### [facility] ([facility]) [address] [place] [address] VIRAST [Catalytic activity/Vol]17 U/LNormal<=41[facility] Ambulatory PPGComment on above:Performed By: #### CMP #### [facility] ([facility]) [address] [place] [address] VIRBilirubin [Mass/Vol]0.4 mg/dLNormal0.3-1.2PWooster Community Hospital Ambulatory PPGComment on above:Performed By: #### CMP #### [facility] ([facility]) [address] [place] [address] VIRCalcium [Mass/Vol]9.7 mg/dLNormal8.5-10.5PWooster Community Hospital Ambulatory PPGComment on above:Performed By: #### CMP #### [facility] ([facility]) [address] [place] [address] VIRChloride [Moles/Vol]100 mmol/HQlnwfj03-422AnxLjgvww Hospital Ambulatory PPGComment on above:Performed By: #### CMP #### [facility] ([facility]) [address] [place] [address] VIRCO2 [Moles/Vol]25 mmol/RVwntrh32-58FlpYzepro Hospital Ambulatory PPGComment on above:Performed By: #### CMP #### [facility] ([facility]) [address] [place] [address] VIRCreatinine [Mass/Vol]0.79 mg/dLNormal0.40-1.00[facility] Ambulatory PPGComment on above:Result Comment: METHOD TRACEABLE TO IDMS STANDARDPerformed By: #### CMP #### [facility] ([facility]) [address] [place] [address] VIRGFR/1.73 sq M.predicted among non-blacks MDRD (S/P/Bld) [Vol rate/Area]82 mL/min/{1.73_m2}Normal>=60[facility] Ambulatory PPGComment on above:Result Comment: Reported eGFR is based on the CKD-EPI 2020 equation that does not use a race coefficient.Performed By: #### CMP #### [facility] ([facility]) [address] [place] [address] VIRGlucose [Mass/Vol]101 mg/qNMvzx42-37VorZrkxoo Hospital Ambulatory PPGComment on above:Performed By: #### CMP #### [facility] ([facility]) [address] [place] [address] VIRPotassium [Moles/Vol]5.0 mmol/LNormal3.5-5.0[facility] Ambulatory PPGComment on above:Performed By: #### CMP #### [facility] ([facility]) [address] [place] [address] VIRProtein [Mass/Vol]7.1 g/dLNormal6.0-8.0[facility] Ambulatory PPGComment on above:Performed By: #### CMP #### [facility] ([facility]) [address] [place] [address] VIRSodium [Moles/Vol]136 mmol/QOlqbnu217-720NzvIljiqw Hospital Ambulatory PPGComment on above:Performed By: #### CMP #### [facility] ([facility]) [address] [place] [address] VIRUrea nitrogen [Mass/Vol]11 mg/dLNormal5-27[facility] Ambulatory PPGComment on above:Performed By: #### CMP #### [facility] ([facility]) [address] [place] [address] VIRComprehensive metabolic panelon 90-03-4434Htoxjwj [Mass/Vol] 4.5 g/dL3.2 - 5.3 g/dLProMedica Health SystemALP [Catalytic activity/Vol]97 U/L 39 - 130 U/[facility] SystemALT No additional P-5'-P [Catalytic activity/Vol]7 U/LNINF - 31 U/[facility] Health SystemAnion gap [Moles/Vol]11 mmol/L5 - 15 mmol/[facility] Health SystemAST [Catalytic activity/Vol]17 U/LNINF - 41 U/[facility] SystemBilirubin [Mass/Vol]0.4 mg/dL0.3 - 1.2 mg/dL ProMMille Lacs Health System [facility]am[facility] SystemCalcium [Mass/Vol]9.7 mg/dL8.5 - 10.5 mg/dLProSelect Medical [facility] SystemChloride [Moles/Vol]100 mmol/L98 - 109 mmol/[facility] SystemCO2 [Moles/Vol]25 mmol/L22 - 32 mmol/[facility] SystemCreatinine [Mass/Vol]0.79 mg/dL0.40 - 1.00 mg/dLPomerene HospitalComment on above: METHOD TRACEABLE TO IDOH STANDARDEGFR Non-Race Rcdmrwbmo20- [facility] HospitalComment on above:Reported eGFR is based on the CKD-EPI 2020 equation that does not use a race coefficient. Glucose [Mass/Vol]101 mg/aFCqgb20 - 99 mg/dLPomerene Hospital Interpretation and review of laboratory resultsAbnormalPomerene Hospital Potassium [Moles/Vol]5 mmol/L3.5 - 5.0 mmol/[facility] SystemProtein [Mass/Vol]7.1 g/dL6.0 - 8.0 g/dLCone Healthodium [Moles/Vol]136 mmol/L134 - 146 mmol/[facility] SystemUrea nitrogen [Mass/Vol]11 mg/dL5 - 27 mg/dLPomerene HospitalDRUG SCREEN, URINEon 03-29-2025 AMPHETAMINE/METHAMPNegativeNormalNegativeThe [facility] Ambulatory PPG Comment on above:Order Comment: Confirmation available upon request.Result Comment: AMPH/METH screening cut off = 1000 ng/mLPerformed By: #### DSU #### [facility] ([facility]) [address] [place] [address] VIRBARBITURATESNegativeNormalNegativeThe [facility] Ambulatory PPGComment on above:Order Comment: Confirmation available upon request.Result Comment: Barbiturates screening cut off value = 200 ng/mL Performed By: #### DSU #### [facility] ([facility]) [address] [place] [address] VIRBENZODIAZEPINESNegativeNormalNegativeThe [facility] Ambulatory PPGComment on above:Order Comment: Confirmation available upon request.Result Comment: Benzodiazepines screening cut off value = 200 ng/mL Performed By: #### DSU #### [facility] ([facility]) [address] [place] [address] VIRCANNABINOIDSPositiveAbnormalNegativeThe [facility] Ambulatory PPGComment on above:Order Comment: Confirmation available upon request.Result Comment: Cannabinoids/THC screening cut off value = 50 ng/mL Performed By: #### DSU #### [facility] ([facility]) [address] [place] [address] VIRCOCAINE METABOLITENegativeNormalNegativeThe [facility] Ambulatory PPGComment on above:Order Comment: Confirmation available upon request.Result Comment: Cocaine screening cut off value = 300 ng/mLPerformed By: #### DSU #### [facility] ([facility]) [address] [place] [address] VIRECSTASYNegativeNormalNegativeThe [facility] Ambulatory PPGComment on above:Order Comment: Confirmation available upon request.Result Comment: Ecstasy screening cut off value = 500 ng/mLPerformed By: #### DSU #### [facility] ([facility]) [address] [place] [address] VIRMETHADONENegativeNormalNegativeThe [facility] Ambulatory PPGComment on above:Order Comment: Confirmation available upon request.Result Comment: Methadone screening cut off value = 300 ng/mL.Performed By: #### DSU #### [facility] ([facility]) [address] [place] [address] VIROPIATESPositiveAbnormalNegativeThe [facility] Ambulatory PPGComment on above:Order Comment: Confirmation available upon request.Result Comment: Opiates screening cut off value = 300 ng/mL This test is used for the detection of codeine, hydrocodone (>1000 ng/mL), morphine and hydromorphone (>900 ng/mL) in urine.Performed By: #### DSU #### [facility] ([facility]) [address] [place] [address] VIROXYCODONENegativeNormalNegativeThe [facility] Ambulatory PPGComment on above:Order Comment: Confirmation available upon request.Result Comment: Oxycodone screening cut off value = 300 ng/mL This test is used for the detection of oxycodone and oxymorphone in urine.Performed By: #### DSU #### [facility] ([facility]) [address] [place] [address] VIRPHENCYCLIDINENegativeNormalNegativeThe [facility] Ambulatory PPGComment on above:Order Comment: Confirmation available upon request.Result Comment: Phencyclidine screening cut off value = 25 ng/mL Performed By: #### DSU #### [facility] ([facility]) [address] [place] [address] VIRLIPID PROFILEon 72-76-5306Obtzbjhudbu [Mass/Vol]179 mg/dL Rjjood634-229EtbWmrsrp Hospital Ambulatory PPGComment on above:Performed By: #### LIPR #### [facility] ([facility]) [address] [place] [address] VIRCholesterol in HDL [Mass/Vol]70 mg/dLNormal>39[facility] Ambulatory PPGComment on above:Result Comment: HDL <40 mg/dL - High Risk HDL > or = 40mg/dL- Desirable HDL >60 mg/dL - Negative RiskPerformed By: #### LIPR #### [facility] ([facility]) [address] [place] [address] VIRCholesterol in LDL [Mass/Vol]83 mg/dLNormal<130[facility] Ambulatory PPGComment on above:Result Comment: LDL <100 mg/dL - Desirable LDL >160 mg/dL - High RiskPerformed By: #### LIPR #### [facility] ([facility]) [address] [place] [address] VIRCHOLESTEROL:HDL2.7Olszec6.0-5.0[facility] Ambulatory PPGComment on above:Performed By: #### LIPR #### [facility] ([facility]) [address] [place] [address] VIRTriglyceride [Mass/Vol]129 mg/aZLlusrw27-212QljYluimm Hospital Ambulatory PPGComment on above:Performed By: #### LIPR #### [facility] ([facility]) [address] [place] [address] VIRVERY LOW JABZEDNLTTX45 mg/dLNormal0-30[facility] Ambulatory PPGComment on above:Performed By: #### LIPR #### [facility] ([facility]) [address] [place] [address] VIRLipid profileon 34-64-6487Lvivdlnsehq [Mass/Vol]179 mg/dL150 - 200 mg/dLPomerene HospitalCholesterol in HDL [Mass/Vol]70 mg/dL39 - PINF mg/dLMercer County Community Hospital SystemComment on above:HDL <40 mg/dL - High Risk HDL > or = 40mg/dL- Desirable HDL >60 mg/dL - Negative Risk Cholesterol in HDL [Mass/Vol]2.6 mg/dL1.0 - 5.0P[facility] Cholesterol in LDL [Mass/Vol]83 mg/dLNINF - 130 mg/dLPomerene Hospital Comment on above:LDL <100 mg/dL - Desirable LDL >160 mg/dL - High Risk Cholesterol in VLDL [Mass/Vol]26 mg/dL0 - 30 mg/dLPomerene Hospital Interpretation and review of laboratory resultsNormalPomerene Hospital Triglyceride [Mass/Vol]129 mg/dL27 - 150 mg/dLPomerene HospitalNo Panel Informationon 38-31-9339JliRuwsepPomerene HospitalTHYROID PROFILE INCLUDES TSH FT4 on 19-12-3330Jtae T4 [Mass/Vol]1.33 ng/dLNormal0.61-1.60[facility] Ambulatory PPGComment on above:Performed By: #### THYR #### [facility] ([facility]) [address] [place] [address] VIRTSH0.07 uIU/mLLow0.49-4.67[facility] Ambulatory PPG Comment on above:Performed By: #### THYR #### [facility] ([facility]) [address] [place] [address] VIRThyroid profile includes TSH FT4on 80-41-7362Mwcm T4 [Mass/Vol]1.33 ng/dL0.61 - 1.60 ng/dLPomerene HospitalInterpretation and review of laboratory resultsAbnoAtrium Health Waxhaw Qn0.07 m[IU]/LLow [facility] Medical CenterPOCT urinalysis dipstick onlyon 27-19-8524Dkjccnnyxe (U)cloudyPThe [facility] SystemExternal Poct Urine BilirubinNegativePomerene HospitalExternal Poct Urine BloodTraThe Surgical Hospital at SouthwoodsComment on above:intactExternal Poct Urine ColoryellowPomerene HospitalExternal Poct Urine GlucoseNegativeMercer County Community Hospital SystemExternal Poct Urine KetonesNegativePomerene HospitalExternal Poct Urine Leukocyte EsteraseTraThe Surgical Hospital at SouthwoodsComment on above:smallExternal Poct Urine NitritePositivePomerene HospitalExternal Poct Urine Sq2LifIvsgogPomerene HospitalExternal Poct Urine Protein1+Pomerene HospitalComment on above:100 External Poct Urine Specific Gravity1.02Pomerene HospitalExternal Poct Urine Urobilinogen0.2PFirst Hospital Wyoming ValleyFLOW CYTOMETRYon 07-22-9276XIQK CYTOMETRYSEE SEPARATE REPORT, REVIEWED BY PATHOLOGIST NormalCleveland Clinic Medina HospitalComment on above:Performed By: #### LLPH #### [facility] ([id number]) [address] [place], [place] [address]Oxydikbj Pathologyon 93-81-3048Xsoboqhs PathologyNormalProMedica Lanterman Developmental CenterComment on above:Result Comment: [facility] [address] [place], [place] [address] Flow Cytometry Patient Name:FUNMILAYO OCAMPOAccession #:[id number]. Rec. #:[id number]:[facility] FrTaken:09/20/2024DOB:1955 (Age: 69)Location:LAB ([facility]) Received:09/21/2024Gender: FBill. Type:Outreach (E )Reported:Priority:RBilling #:[id number] Class:OFC Special Procedure OnlyPhysician(s): Jacob Rush CNP Copy To: Specimen(s) Received Blood for Flowcytometry Status: Signed Out Interpretation Normal peripheral blood immunophenotyping study. No monotypic B-cell population or increase in blasts identified. CBC and Flow cytometry results: WBC: 12.0 X 10^9/L Lymph: 3.4 X 10^9/L Blasts: Not increased on CD45/side scatter analysis or CD34 staining. B-cells: No monotypic population identified; normal expression pattern of CD19, surface kappa and surface lambda. T-cells/NK-cells: No aberrant phenotype by CD3 and CD16. A Ghosh stained peripheral blood smear is reviewed. Immunophenotyping antibodies tested: CD3, CD4, CD8, CD16, CD19, CD34, CD45, [place], and Lambda. Immunophenotyping Comment: Immunophenotyping has been used in this diagnostic evaluation. This test was developed and its performance characteristics determined by the [employer] [facility]. It has not been cleared or approved by the U.S. Food and Drug Administration. The FDA has determined that such clearance or approval is not necessary. This test is used for clinical purposes. It should not be regarded as investigational or for research. This laboratory is certified under the Clinical Laboratory Improvement Amendments of 1988 ( CLIA ) as qualified to perform high-complexity clinical testing. Electronically Signed Out pjg/09/21/2024 Federico Calderón, MDCBC AND AUTO DIFFon [id number] BASOPHIL0.1 X10E9/LNormal0.0-0.2PHardtner Medical Centerica Zanesville City HospitalComment on above:Performed By: #### CBCA, CMP, FEPR, 3016-3, 2276-4, 2132-04 #### [facility] ([id number]) [address], [address] [place], [place] [address]FTACSCFT NEUTROPHIL8.7 X10E9/LHigh1.5-6.6ProAdams County HospitalComment on above:Performed By: #### CBCA, CMP, FEPR, 3016-3, 2275-4, 2132-04 #### [facility] ([id number]) [address] [address] [place], [place] [address]Rfazrddnk/100 WBC (Bld)1.0 %NormalKettering Health Springfield Comment on above:Performed By: #### CBCA, CMP, FEPR, 3016-3, 2275-4, 2132-04 #### [facility] ([id number]) [address] [address] [place], [place] [address]Zzklesfkquk (Bld) [#/Vol]0.1 10*3/uLNormal0.0-0.4ProAdams County HospitalComment on above:Performed By: #### CBCA, CMP, FEPR, 3016-3, 2275-4, 2132-04 #### [facility] ([id number]) [address], [address] [place], [place] [address]Rykphgotujv/100 WBC (Bld)1.1 %NormalKettering Health Springfield Comment on above:Performed By: #### CBCA, CMP, FEPR, 3016-3, 2276-4, 2132-04 #### [facility] ([id number]) [address], [address] [place], [place] [address]Vojvkeozujq distribution width (RBC) [Ratio]15.5 %High11.5-15.0 ProMGood Samaritan Hospital HospitalComment on above:Performed By: #### CBCA, CMP, FEPR, 3016-3, 2275-4, 2132-04 #### [facility] ([id number]) [address], [address] [place], [place] [address]Zpvobohsun (Bld) [Volume fraction]44.6 %Zazjqm03-98ShhWcdzfu [facility]edo HospitalComment on above:Performed By: #### CBCA, CMP, FEPR, 6-3, 2275-4, 2132-04 #### [facility] ([id number]) [address] [place], [place] [address]Nppwlaqbrm (Bld) [Mass/Vol]14.5 g/wBOmzsrx20.7-15.5PDunlap Memorial Hospital HospitalComment on above:Performed By: #### CBCA, CMP, FEPR, 6-3, 2275-4, 2132-04 #### [facility] ([id number]) [address], [address] [place], [place] [address]Xocyednzwir (Bld) [#/Vol]2.4 10*3/uLNormal1.0-3.5PSt. Charles HospitalComment on above:Performed By: #### CBCA, CMP, FEPR, 6-3, 2275-4, 2132-04 #### [facility] ([id number]) [address], [address] [place], [place] [address]Swqcdygnohm/100 WBC (Bld)20.0 %NormalProLake County [facility] Comment on above:Performed By: #### CBCA, CMP, FEPR, 6-3, 2275-4, 2132-04 #### [facility] ([id number]) [address], [address] [place], [place] [address]REH (RBC) [Entitic mass]27.3 xzIqggit61-98SorYzifjp [place] [facility] HospitalComment on above:Performed By: #### CBCA, CMP, FEPR, 3016-3, 2275-4, 2132-04 #### [facility] ([id number]) [address], [address] [place], [place] [address]HXBT (RBC) [Mass/Vol]32.5 g/aWGdppax40-92DbzAebpnb [facility] HospitalComment on above:Performed By: #### CBCA, CMP, FEPR, 3016-3, 2275-4, 2132-04 #### [facility] ([id number]) [address] [place], [place] [address]JOJ (RBC) [Entitic vol]84 lEAehvkz70-784QkbMfgequ [facility] HospitalComment on above:Performed By: #### CBCA, CMP, FEPR, 6-3, 2275-4, 2132-04 #### [facility] ([id number]) [address], [address] [place], [place] [address]Qtofuyngb (Bld) [#/Vol]0.7 10*3/uLNormal0-0.9ProLake County Memorial Hospital - West HospitalComment on above:Performed By: #### CBCA, CMP, FEPR, 6-3, 2275-4, 2132-04 #### [facility] ([id number]) [address], [address] [place], [place] [address]Xzoufjxxk/100 WBC (Bld)6.2 %NormalKettering Health Springfield Comment on above:Performed By: #### CBCA, CMP, FEPR, 3016-3, 2275-4, 2132-04 #### [facility] ([id number]) [address], [address] [place], [place] [address]Lquifbpcqtg/100 WBC (Bld)71.7 %NormalKettering Health Springfield Comment on above:Performed By: #### CBCA, CMP, FEPR, 3016-3, 2276-4, 2132-04 #### [facility] ([id number]) [address], [address] [place], [place] [address]Lgkhkobk mean volume (Bld) [Entitic vol]8.1 fLNormal7-12 ProMGood Samaritan Hospital HospitalComment on above:Performed By: #### CBCA, CMP, FEPR, 3016-3, 2276-4, 2132-04 #### [facility] ([id number]) [address], [address] [place], [place] [address]Djwterdyp (Bld) [#/Vol]459 10*3/nLSufr718-374QnfYigpug [facility]edo HospitalComment on above:Performed By: #### CBCA, CMP, FEPR, 3016-3, 2275-4, 2132-04 #### [facility] ([id number]) [address], [address] [place] [address]DCI COUNT5.29 X10E12/LHigh3.80-5.20[facility] Comment on above:Performed By: #### CBCA, CMP, FEPR, 3016-3, 2275-4, 2132-04 #### [facility] ([id number]) [address], [address] [place], [place] [address]HST (Bld) [#/Vol]12.1 10*3/uLHigh4.0-11.0K[facility]tering Health SpringfieldComment on above:Performed By: #### CBCA, CMP, FEPR, 3016-3, 2276-4, 2132-04 #### [facility] ([id number]) [address], [address] [place], [place] [address]WGSAWZKGjm 16-44-9795Xqzolqiz [Mass/Vol]30 ng/hVVqwcuh49-732 ProMGood Samaritan Hospital HospitalComment on above:Performed By: #### CBCA, CMP, FEPR, 3016-3, 2276-4, 2132-04 #### [facility] ([id number]) [address], [address] [place], [place] [address]YAFT PROFILEon 41-51-4078Rwby [Mass/Vol]69 ug/yFItozfm54-483 ProMKettering Memorial HospitalComment on above:Performed By: #### CBCA, CMP, FEPR, 3016-3, 6-4, 2132-04 #### [facility] ([id number]) [address], [address] [place], [place] [address]DMJD FMIYMJZ204 ug/cHVuduhy853-592XgpQaouyl [facility] Comment on above:Performed By: #### CBCA, CMP, FEPR, 3016-3, 2275-4, 2132-04 #### [facility] ([id number]) [address], [address] [place], [place] [address]OPJY FQCYTDEADK66 % ALRWOQULQTCjmgdl76-19BgrIitavy [facility] HospitalComment on above:Performed By: #### CBCA, CMP, FEPR, 3016-3, 6-4, 2132-04 #### [facility] ([id number]) [address], [address] [place], [place] [address]DVWZIYT B12on 96-18-1505Vajjbiqyo (Vitamin B12) [Mass/Vol]299 pg/vIKjugag478-815BebQrasde [facility]anes[facility] City HospitalComment on above:Performed By: #### CBCA, CMP, FEPR, 3016-3, 6-4, 2132-04 #### [facility] ([id number]) [address], [address] [place], [place] [address]IK LOW DOSE LUNG SCREENINGon 63-80-8476DM LOW DOSE LUNG SCREENINGCT LOW DOSE LUNG SCREENING CLINICAL INFORMATION: Screening visit: Personal history of tobacco use/personal history of nicotine dependence. Lung cancer screening. The patient is a current smoker. The patient has a 40 pack year history of smoking. COMPARISON: 11/20/2012 TECHNIQUE: Low dose CT chest performed without contrast with coronal and sagittal and maximum intensity projection reconstructed images. Maximum intensity projection images generated to increase the sensitivityof pulmonary nodule detection. All CT scans at this facility use dose modulation, iterative reconstruction, and/or weight based dosing when appropriate to reduce radiation dose to as low as reasonably achievable. Automated exposure control was utilized. Computer aided detection for pulmonary nodules?was performed utilizing [employer] software.? FINDINGS: Diagnostic quality: Satisfactory Lung nodules: None Lungs and pleural spaces: Emphysema. Small amount of mucus in the trachea. Mediastinum: Unremarkable Heart size: Normal Coronary calcification: Mild Pericardial effusion: None Other findings: None significant IMPRESSION: Lung Rads Category: 1- Negative Recommendation: CT Low Dose Lung Screening 1 year Finalized by Marco Paul MD on 07/27/2024 5:19 AM 1 [facility]MA S[facility]EN[facility] BILATERAL W CADon 94-18-0650TYFE SCREENING BILATERAL W CADMAMM SCREENING BILATERAL W CAD FUNMILAYO OCAMPO 1955 [id number] EXAM: MAMM SCREENING BILATERAL W CAD, 05/23/2024 10:35 AM CLINICAL INDICATIONS: Screening, Encounter for screening mammogram for malignant neoplasm of breast COMPARISON: 10/06/2022 and priors TECHNIQUE: Bilateral digital tomosynthesis MLO and CC views of the breasts were obtained, with creation of synthetic 2D views. Computer aided detection was utilized. FINDINGS: The breasts are extremely dense, which lowers the sensitivity of mammography. There are no suspicious masses, calcifications, or areas of architectural distortion. IMPRESSION: No mammographic evidence of malignancy. BI-RADS: BI-RADS 1 - Negative Recommendation: Recommend MBI as a supplemental screening combined with annual mammography.. As a separate recommendation, due to the density and/or complexity of breast tissue on mammography,Molecular Breast Imaging is recommended as a supplement to annual screening mammography. MBI can beused to help detect mammographically occult cancers in dense breasts. Finalized by Lee Hdez MD on 05/23/2024 1:15 PM 1 d MOLEC BR IMGNormalCleveland Clinic Medina HospitalCBC AND AUTO DIFFon 17-46-9119Dgho form neutrophils/100 WBC (Bld)1.0 %[facility] HospitalComment on above:Performed By: #### CBCFREDRICK Sheehan, 6-3 #### [facility] ([id number]) [address], [address] [place], [place] [address]Oebfxurpkce (Bld) [#/Vol]0.4 10*3/uLNormal0.0-0.4Pro[facility] HospitalComment on above:Performed By: #### CBCFREDRICK Sheehan, 6-3 #### [facility] ([id number]) [address], [address] [place], [place] [address]Bivvxlilelw/100 WBC (Bld)2.0 %NormalProLake [facility] Comment on above:Performed By: #### FREDRICK PEREZ, 3015-3 #### [facility] ([id number]) [address], [address] [place], [place] [address]Wslacarvnmz distribution width (RBC) [Ratio]15.3 %High11.5-15.0 [facility] HospitalComment on above:Performed By: #### FREDRICK PEREZ, 3015-3 #### [facility] ([id number]) [address], [address] [place], [place] [address]Oksungckra (Bld) [Volume fraction]39.2 %Dezdha19-81DatIdforq [place] HospitalComment on above:Performed By: #### FREDRICK PEREZ, 6-3 #### [facility] ([id number]) [address], [address] [place], [place] [address]Hgwbvgboex (Bld) [Mass/Vol]13.1 g/fJPyojvy18.7-15.5[facility] HospitalComment on above:Performed By: #### CBCAguila CMP, 6-3 #### [facility] ([id number]) [address], [address] [place], [place] [address]Ohtpfzhmtyj (Bld) [#/Vol]5.0 10*3/uLHigh1.0-3.5[facility] HospitalComment on above:Performed By: #### CBCA, CMP, 3016-3 #### [facility] ([id number]) [address], [address] [place], [place] [address]Znmieydwobu/100 WBC (Bld)28.0 %NormalKettering Health [facility] Comment on above:Performed By: #### CBCA, CMP, 6-3 #### [facility] ([id number]) [address], [address] [place], [place] [address]PPG (RBC) [Entitic mass]27.1 geHxpcvq77-05KuuUzyyoq [facility] HospitalComment on above:Performed By: #### CBCA, CMP, 6-3 #### [facility] ([id number]) [address], [address] [place], [place] [address]LBAJ (RBC) [Mass/Vol]33.3 g/vPYxylmw73-25VvkIwfsad [place] HospitalComment on above:Performed By: #### CBCA, CMP, 6-3 #### [facility] ([id number]) [address], [address] [place], [place] [address]MSB (RBC) [Entitic vol]82 kAYkzfkl34-837XbqWzogwx [place] HospitalComment on above:Performed By: #### CBCA, CMP, 6-3 #### [facility] ([id number]) [address], [address] [place], [place] [address]Vomuuidvzuvvkw/100 WBC (Bld)2.0 %NormalKettering Health Springfield Comment on above:Performed By: #### CBCA, CMP, 6-3 #### [facility] ([id number]) [address], [address] [place], [place] [address]Qjduzkfgs (Bld) [#/Vol]1.6 10*3/uLHigh0-0.9ProParma Community General Hospitalca [facility] HospitalComment on above:Performed By: #### CBCAguila CMP, 6-3 #### [facility] ([id number]) [address], [address] [place], [place] [address]Fuqvodist/100 WBC (Bld)9.0 %NormalProAdams County Hospital Comment on above:Performed By: #### CBCAguila, CMP, 6-3 #### [facility] ([id number]) [address], [address] [place], [place] [address]Haidnzoaetz (Bld) [#/Vol]10.3 10*3/uLHigh1.5-6.6ProParma Community General Hospitalca [facility] HospitalComment on above:Performed By: #### CHRIS, CMP, 3015-3 #### [facility] ([id number]) [address], [address] [place], [place] [address]Nzhkhpex mean volume (Bld) [Entitic vol]7.4 fLNormal7-12 [facility] HospitalComment on above:Performed By: #### CBCAguila, CMP, 3015-3 #### [facility] ([id number]) [address], [address] [place], [place] [address]Efyxjzbeh (Bld) [#/Vol]735 10*3/rNFqkh460-450SmlAubspf [place] HospitalComment on above:Performed By: #### CBCAguila CMP, 6-3 #### [facility] ([id number]) [address], [address] [place], [place] [address]DGE COUNT4.82 X10E12/LNormal3.80-5.20[facility] Comment on above:Performed By: #### CBCAguila, CMP, 6-3 #### [facility] ([id number]) [address], [address] [place], [place] [address]ZYQ morphology finding Nom (Bld)NORMALNormalProLake County Memorial Hospital - West HospitalComment on above:Performed By: #### CBCA, CMP, 6-3 #### [facility] ([id number]) [address], [address] [place], [place] [address]AGZ ZKWWHETGEF88.0 %NormalProMedica Jackman HospitalComment on above:Performed By: #### FREDRICK PEREZ, 6-3 #### [facility] ([id number]) [address], [address] [place], [place] [address]HMR (Bld) [#/Vol]17.7 10*3/uLHigh4.0-11.0[facility] HospitalComment on above:Performed By: #### FREDRICK PEREZ, 3015- #### [facility] ([id number]) [address], [address] [place], [place] [address]LQUAJNJENMNFD METABOLIC PANELon 93-33-7662Couafzv [Mass/Vol]3.8 g/dLNormal3.2-5.3[facility] HospitalComment on above:Performed By: #### FREDRICK PEREZ, 3015-3 #### [facility] ([id number]) [address], [address] [facility] [place] [address]YTM [Catalytic activity/Vol]121 U/QZibpik58-458UliRkxqpn [facility] HospitalComment on above:Performed By: #### FREDRICK PEREZ, 3015-3 #### [facility] ([id number]) [address], [address] [place], [place] [address]SMY [Catalytic activity/Vol]23 U/LNormal0-31[facility] HospitalComment on above:Performed By: #### FREDRICK PEREZ, 3015-3 #### [facility] ([id number]) [address], [address] [place], [place] [address]Bbuke gap [Moles/Vol]10 mmol/LNormal5-15[facility] HospitalComment on above:Performed By: #### CHRIS CMP, 6-3 #### [facility] ([id number]) [address], [address] [place], [place] [address]GBC [Catalytic activity/Vol]18 U/LNormal0-41ProLake County Memorial Hospital - West HospitalComment on above:Performed By: #### FREDRICK PEREZ, 6-3 #### [facility] ([id number]) [address], [address] [place], [place] [address]Eosotzktx [Mass/Vol]0.3 mg/dLNormal0.3-1.2ProMedFayette County Memorial Hospital HospitalComment on above:Performed By: #### FREDRICK PEREZ, 3015-3 #### [facility] ([id number]) [address], [address] [place], [place] [address]Yojkbfe [Mass/Vol]9.3 mg/dLNormal8.5-10.5PDunlap Memorial Hospital HospitalComment on above:Performed By: #### FREDRICK PEREZ, 3015-3 #### [facility] ([id number]) [address], [address] [place], [place] [address]Waxoyocc [Moles/Vol]97 mmol/NPfo75-195IgpEmhchqKettering Health Springfield Comment on above:Performed By: #### FREDRICK PEREZ, 6-3 #### [facility] ([id number]) [address], [address] [place], [place] [address]YP7 [Moles/Vol]27 mmol/HLifspq85-63KmgDyxzkkSt. Charles Hospital Comment on above:Performed By: #### FERDRICK PEREZ, 3015-3 #### [facility] ([id number]) [address], [address] [place], [place] [address]Znhfufryhq [Mass/Vol]0.76 mg/dLNormal0.40-1.00ProAdams County HospitalComment on above:Result Comment: METHOD TRACEABLE TO IDMS STANDARD Performed By: #### FREDRICK PEREZ, 6-3 #### [facility] ([id number]) [address], [address] [place], [place] [address]ZOF/1.73 sq M.predicted among non-blacks MDRD (S/P/Bld) [Vol rate/Area]86 mL/min/{1.73_m2}Normal>59ProAdams County HospitalComment on above: Result Comment: Reported eGFR is based on the CKD-EPI 2020 equation that does not use a race coefficient.Performed By: #### FREDRICK PEREZ, 6-3 #### [facility] ([id number]) [address], [address] [place], [place] [address]Nazptbn [Mass/Vol]76 mg/eOVtvdwq80-19SgoKiaetg [facility] Comment on above:Performed By: #### FREDRICK PEREZ, 6-3 #### [facility] ([id number]) [address] [address] [place], [place] [address]Vjxjichrq [Moles/Vol]4.4 mmol/LNormal3.5-5.0ProAdams County HospitalComment on above:Performed By: #### FREDRICK PEREZ, 6-3 #### [facility] ([id number]) [address], [address] [place], [place] [address]Nihpkgl [Mass/Vol]6.6 g/dLNormal6.0-8.0[facility] Comment on above:Performed By: #### FREDRICK PEREZ, 6-3 #### [facility] ([id number]) [address], [address] [place], [place] [address]Ipkonq [Moles/Vol]134 mmol/WZyxrtm147-792QqjVpezpz [place] HospitalComment on above:Performed By: #### FREDRICK PEREZ, 6-3 #### [facility] ([id number]) [address], [address] [place], [place] [address]Rxas nitrogen [Mass/Vol]18 mg/dLNormal5-27[facility] HospitalComment on above:Performed By: #### CBCA, CMP, 6-3 #### [facility] ([id number]) [address], [address] [place], [place] [address]OAE Qnon 43-07-3807IRN9.73 uIU/mLHigh0.49-4.67[facility] HospitalComment on above:Performed By: #### CBCA, CMP, FEPR, 3016-3, 2275-4, 2132-04 #### [facility] ([id number]) [address], [address] [place], [place] [address]IOE AND AUTO DIFFon 25-14-4960LLYOWEZX BASOPHIL0.2 X10E9/LNormal 0.0-0.2[facility] HospitalComment on above:Performed By: #### CBCA, CMP, FEPR, 6-3, 2275-4, 2132-04 #### [facility] ([id number]) [address], [address] [place], [place] [address]Rjiw form neutrophils/100 WBC (Bld)4.0 %NormalProMedica Pilot Rock HospitalComment on above:Performed By: #### CBCA, CMP, FEPR, 3016-3, 2275-4, 2132-04 #### [facility] ([id number]) [address], [address] [place], [place] [address]Ceewmjrqk/100 WBC (Bld)1.0 %NormalProParma Community General Hospitalca [facility] Comment on above:Performed By: #### CBCA, CMP, FEPR, 6-3, 2275-4, 2132-04 #### [facility] ([id number]) [address], [address] [place], [place] [address]CJNY0+AbnormalNONEProMedica [facility] HospitalComment on above: Performed By: #### CBCA, CMP, FEPR, 3016-3, 6-4, 2132-04 #### [facility] ([id number]) [address], [address] [place], [place] [address]Pnsafrqaiah distribution width (RBC) [Ratio]14.6 %Normal 11.5-15.0ProLake County Memorial Hospital - West HospitalComment on above:Performed By: #### CBCA, CMP, FEPR, 3016-3, 2276-4, 2132-04 #### [facility] ([id number]) [address], [address] [place], [place] [address]Ddqwaxyaoy (Bld) [Volume fraction]36.9 %Admtpk98-05SzvKdnerp [place] HospitalComment on above:Performed By: #### CBCA, CMP, FEPR, 3016-3, 2275-4, 2132-04 #### [facility] ([id number]) [address], [address] [place], [place] [address]Fhdclyhrou (Bld) [Mass/Vol]12.1 g/dKCutipz51.7-15.5PDunlap Memorial Hospital HospitalComment on above:Performed By: #### CBCA, CMP, FEPR, 3016-3, 2275-4, 2132-04 #### [facility] ([id number]) [address], [address] [place], [place] [address]Hkmgbvquknz (Bld) [#/Vol]3.0 10*3/uLNormal1.0-3.5PDunlap Memorial Hospital HospitalComment on above:Performed By: #### CBCA, CMP, FEPR, 3016-3, 2275-4, 2132-04 #### [facility] ([id number]) [address] [address] [place], [place] [address]Sqrvdthtjgm/100 WBC (Bld)15.0 %NormalProLake County [facility] Comment on above:Performed By: #### CBCA, CMP, FEPR, 3016-3, 2276-4, 2132-04 #### [facility] ([id number]) [address], [address] [place], [place] [address]HAJ (RBC) [Entitic mass]26.4 tlUrs34-56DtgKmeexfKettering Health Springfield Comment on above:Performed By: #### CBCA, CMP, FEPR, 3016-3, 6-4, 2132-04 #### [facility] ([id number]) [address], [address] [place], [place] [address]IBRV (RBC) [Mass/Vol]32.8 g/sPYvesmt71-06MscZbkcdx [place] HospitalComment on above:Performed By: #### CBCA, CMP, FEPR, 6-3, 2275-4, 2132-04 #### [facility] ([id number]) [address], [address] [place], [place] [address]MKK (RBC) [Entitic vol]81 kSZyzxgc71-954AkmDxeuwc [place] HospitalComment on above:Performed By: #### CBCA, CMP, FEPR, 3016-3, 2275-4, 2132-04 #### [facility] ([id number]) [address], [address] [place], [place] [address]Iazltyftggxvov/100 WBC (Bld)2.0 %NormalKettering Health Springfield Comment on above:Performed By: #### CBCA, CMP, FEPR, 3016-3, 6-4, 2132-04 #### [facility] ([id number]) [address], [address] [place], [place] [address]Wfwwqxyeh (Bld) [#/Vol]1.2 10*3/uLHigh0-0.9[facility]tering Health SpringfieldComment on above:Performed By: #### CBCA, CMP, FEPR, 3016-3, 2276-4, 2132-04 #### [facility] ([id number]) [address], [address] [place], [place] [address]Rchfyiwfw/100 WBC (Bld)6.0 %NormalProMedica [facility] Hospital Comment on above:Performed By: #### CBCA, CMP, FEPR, 3016-3, 2276-4, 2132-04 #### [facility] ([id number]) [address], [address] [place], [place] [address]Dsmxfapkqux (Bld) [#/Vol]15.1 10*3/uLHigh1.5-6.6[facility] HospitalComment on above:Performed By: #### CBCA, CMP, FEPR, 3016-3, 6-4, 2132-04 #### [facility] ([id number]) [address], [address] [place], [place] [address]Nlqdwdoc mean volume (Bld) [Entitic vol]7.9 fLNormal7-12 [facility] HospitalComment on above:Performed By: #### CBCA, CMP, FEPR, 3016-3, 6-4, 2132-04 #### [facility] ([id number]) [address], [address] [place], [place] [address]Zbvjnlexc (Bld) [#/Vol]789 10*3/lYHhle984-296EjgNsmnob [place] HospitalComment on above:Performed By: #### CBCA, CMP, FEPR, 3016-3, 2275-4, 2132-04 #### [facility] ([id number]) [address], [address] [place], [place] [address]HGD COUNT4.58 X10E12/LNormal3.80-5.20ProL[facility] Comment on above:Performed By: #### CBCA, CMP, FEPR, 3016-3, 6-4, 2132-04 #### [facility] ([id number]) [address], [address] [place], [place] [address]LYJ VMJNMOTFHU34.0 %NormalProLake County Memorial Hospital - West HospitalComment on above:Performed By: #### CBCA, CMP, FEPR, 3016-3, 2276-4, 2132-04 #### [facility] ([id number]) [address], [address] [place] [address]NYX (Bld) [#/Vol]19.9 10*3/uLHigh4.0-11.0[facility] HospitalComment on above:Performed By: #### CBCA, CMP, FEPR, 3016-3, 6-4, 2132-04 #### [facility] ([id number]) [address], [address] [place] [address]JOZRWNPHEGDDH METABOLIC PANELon 91-72-5799Tlffwzc [Mass/Vol]3.6 g/dLNormal3.2-5.3[facility] HospitalComment on above:Performed By: #### CBCA, CMP, FEPR, 6-3, 2275-4, 2132-04 #### [facility] ([id number]) [address], [address] [place] [address]BQP [Catalytic activity/Vol]204 U/AOijp17-178PpjFnfdgv [facility] HospitalComment on above:Performed By: #### CBCA, CMP, FEPR, 3016-3, 2275-4, 2132-04 #### [facility] ([id number]) [address], [address] [place] [address]QEL [Catalytic activity/Vol]29 U/LNormal0-31[facility] HospitalComment on above:Performed By: #### CBCA, CMP, FEPR, 3016-3, 6-4, 2132-04 #### [facility] ([id number]) [address], [address] [place], [place] [address]Zffox gap [Moles/Vol]14 mmol/LNormal5-15[facility] HospitalComment on above:Performed By: #### CBCA, CMP, FEPR, 3016-3, 2276-4, 2132-04 #### [facility] ([id number]) [address], [address] [place], [place] [address]DLR [Catalytic activity/Vol]53 U/LHigh0-41ProAdams County HospitalComment on above:Performed By: #### CBCA, CMP, FEPR, 3016-3, 6-4, 2132-04 #### [facility] ([id number]) [address], [address] [place], [place] [address]Qhkbdpeyc [Mass/Vol]0.4 mg/dLNormal0.3-1.2PSt. Charles HospitalComment on above:Performed By: #### CBCA, CMP, FEPR, 6-3, 2275-4, 2132-04 #### [facility] ([id number]) [address], [address] [place], [place] [address]Nkzbtwx [Mass/Vol]9.2 mg/dLNormal8.5-10.5PSt. Charles HospitalComment on above:Performed By: #### CBCA, CMP, FEPR, 6-3, 2275-4, 2132-04 #### [facility] ([id number]) [address], [address] [place], [place] [address]Lwxgsgcd [Moles/Vol]86 mmol/UOni65-653CbxQsulbmKettering Health Springfield Comment on above:Performed By: #### CBCA, CMP, FEPR, 6-3, 2275-4, 2132-04 #### [facility] ([id number]) [address], [address] [place], [place] [address]NQ2 [Moles/Vol]27 mmol/JDccxdk27-24YicOrkoqqSt. Charles Hospital Comment on above:Performed By: #### CBCA, CMP, FEPR, 3016-3, 6-4, 2132-04 #### [facility] ([id number]) [address], [address] [place], [place] [address]Dpsyczedkd [Mass/Vol]0.68 mg/dLNormal0.40-1.00ProAdams County HospitalComment on above:Result Comment: METHOD TRACEABLE TO IDMS STANDARD Performed By: #### CBCA, CMP, FEPR, 3016-3, 2276-4, 2132-04 #### [facility] ([id number]) [address], [address] [place], [place] [address]lDGA (CKD-EPI) NON-RACE DEPENDENT>90Normal>59ProAdams County HospitalComment on above:Result Comment: Reported eGFR is based on the CKD-EPI 2020 equation that does not use a race coefficient.Performed By: #### CBCA, CMP, FEPR, 3016-3, 2275-4, 2132-04 #### [facility] ([id number]) [address] [address] [place], [place] [address]Mfcsirn [Mass/Vol]101 mg/wNFnsv90-66BpfKnwdtcKettering Health Springfield Comment on above:Performed By: #### CBCA, CMP, FEPR, 3016-3, 2275-4, 2132-04 #### [facility] ([id number]) [address] [address]Konlvwqkx [Moles/Vol]3.1 mmol/LLow3.5-5.0ProAdams County HospitalComment on above:Performed By: #### CBCA, CMP, FEPR, 3016-3, 6-4, 2132-04 #### [facility] ([id number]) [address] [address] [place], [place] [address]Zeucmkl [Mass/Vol]7.4 g/dLNormal6.0-8.0[facility] Comment on above:Performed By: #### CBCA, CMP, FEPR, 3016-3, 2276-4, 2132-04 #### [facility] ([id number]) [address] [place], [place] [address]Gbshwi [Moles/Vol]127 mmol/BRrw044-486IabQmyqsaKettering Health Springfield Comment on above:Performed By: #### CBCA, CMP, FEPR, 6-3, 2275-4, 2132-04 #### [facility] ([id number]) [address], [address] [place], [place] [address]Xjcl nitrogen [Mass/Vol]9 mg/dLNormal5-27ProAdams County HospitalComment on above:Performed By: #### CBCA, CMP, FEPR, 3015-3, 2275-11, 2132-04 #### [facility] ([id number]) [address] [place] [address]NFHRJIJUbj 03-12-8408Wtqwubjk [Mass/Vol]324 ng/gUWjmx57-367 [facility] SpringfieldComment on above:Performed By: #### CBCA, CMP, FEPR, 3015-3, 2275-11, 2132-04 #### [facility] ([id number]) [address] [place] [address]WGWK PROFILEon 41-18-7413Oxhf [Mass/Vol]24 ug/xZWru55-999 [facility] SpringfieldComment on above:Performed By: #### CBCA, CMP, FEPR, 3015-3, 2275-11, 2132-04 #### [facility] ([id number]) [address] [place], [place] [address]KKNT FXOLCKO398 ug/iNPlljyo934-255CjcVchffmKettering Health Springfield Comment on above:Performed By: #### CBCA, CMP, FEPR, 3015-3, 4, 2132-04 #### [facility] ([id number]) [address] [place], [place] [address]URUG SATURATION9 % KLRBZVVNUQEsl35-12DnwKtkque [facility] Comment on above:Performed By: #### CBCA, CMP, FEPR, 3016-3, 2275-4, 2132-04 #### [facility] ([id number]) [address] [facility] [place], [place] [address]DPM Qnon 48-65-1308EWL6.23 uIU/mLHigh0.49-4.67ProAdams County HospitalComment on above:Performed By: #### CBCA, CMP, FEPR, 6-3, 2275-4, 2132-04 #### [facility] ([id number]) [address] [facility] [place], [place] [address]CHEIM CULTUREon 37-84-6494Ukwvmcfj identified Cx Nom (U)SPECIMEN NOTES URINE RECEIVED WITHOUT PRESERVATIVE CULTURE RESULTS 50,000 to 100,000 ORGANISMS/mL ESCHERICHIA COLI <10,000 ORGANISMS/mL NORMAL URO GENITAL NERIS URINE RECEIVED WITHOUT PRESERVATIVE-DELAYS IN TRANSPORT MAY AFFECT RESULTS.INTERPRET WITH CAUTION AND CLINICAL CORRELATION IS RECOMMENDED. [ S = SUSCEPTIBLE R = RESISTANT I = INTERMEDIATE S-DO = Susceptible-dose dependent NS = Non-suscceptible NO = No Interpretation ] Organism: ESCHERICHIA COLI Antibiotic Interpretation SKYE Status AMPICILLIN S 4 F AMP/SULBACTAM S <=2/1 F CEFAZOLIN S <=4 F CEFTRIAXONE S <=1 F CIPROFLOXACIN S <=0.25 F GENTAMICIN S <=1 F LEVOFLOXACIN S <=0.12 F NITROFURANTOIN S <=16 F PIPERACIL/TAZOBACTAM S <=4 F TOBRAMYCIN S <=1 F TRIMETH/SULFAMETHOXAZOLE S <=1/19 FSusceptibleProAdams County HospitalComment on above:Performed By: #### 630-4 #### [facility] ([id number]) [address], [address] [place], [place] [address]NEYRRKO B12on 41-54-8188Qhlygaqly (Vitamin B12) [Mass/Vol]510 pg/qUDxpwld362-094IydPijqub [facility] HospitalComment on above:Performed By: #### CBCA, CMP, FEPR, 6-3, 2275-4, 2132-04 #### [facility] ([id number]) [address], [address] [place], [place] [address]KDDY SCREEN, URINEon 41-48-9666VYVFKZNTBNY/METHAMPNegativeNormal NEGProMedica Pilot Rock HospitalComment on above:Result Comment: AMPH/METH screening cut off = 1000 ng/mLPerformed By: #### DSU #### [facility] ([id number]) [address], [address] [place], [place] [address]WOLAKEJYPIMLJrinaujqAsgifeOJSCpwNpfaqu [facility] HospitalComment on above:Result Comment: Barbiturates screening cut off value = 200 ng/mLPerformed By: #### DSU #### [facility] ([id number]) [address], [address] [place], [place] [address]SLRUZGSUUHRLCUOQokgnpicImrmpgKCXHpcYhglbl [facility] HospitalComment on above:Result Comment: Benzodiazepines screening cut off value = 200 ng/mL Performed By: #### DSU #### [facility] ([id number]) [address], [address] [place], [place] [address]GBTCPJIAUTLYXaudnryoPywzaqguQAPFjoMzpxyj [facility] HospitalComment on above:Result Comment: Confirmation available upon request. Cannabinoids/THC screening cut off value = 50 ng/mLPerformed By: #### DSU #### [facility] ([id number]) [address], [address] [place], [place] [address]GFMCFNZ METABOLITENegativeNormalNEGProMedica [facility] Hospital Comment on above:Result Comment: Cocaine screening cut off value = 300 ng/mL Performed By: #### DSU #### [facility] ([id number]) [address], [address] [place], [place] [address]EZANFULGukshbffReltlnQHRLtlYhndvc [facility] HospitalComment on above:Result Comment: Ecstasy screening cut off value = 500 ng/mL This report is intended for use in clinical monitoring or management of patients.Performed By: #### DSU #### [facility] ([id number]) [address] [place] [address], [address] [place], [place] [address]YFMYUQZFHMgukwatxEswhfcDRJZeqZmosfr [facility] on above:Result Comment: Methadone screening cut off value = 300 ng/mL.Performed By: #### DSU #### [facility] ([id number]) [address] [place] [address], [address] [place] [id number]BayMjksqf [facility] on above:Result Comment: Opiates screening cut off value = 300 ng/mL NOTE: This test is used for the detection of codeine, hydrocodone (>1000 ng/mL), morphine and hydromorphone (>900 ng/mL) in urine.Performed By: #### DSU #### [facility] ([id number]) [address] [place] [address], [address] [place] [id number]QGThhPtujvr [facility] on above:Result Comment: Oxycodone screening cut off value = 300 ng/mL NOTE: This test is used for the detection of oxycodone and oxymorphone in urine.Performed By: #### DSU #### [facility] ([id number]) [address] [place] [address], [address] [place] [id number]trhLSEZjaIycnbs [facility] on above:Result Comment: Phencyclidine screening cut off value = 25 ng/mL Performed By: #### DSU #### [facility] ([id number]) [address] [facility] [address] [place] [address] Vital Signs Date TimeVital SignValuePerforming JusnjtvnwBupwbmjp33-01-4442 10:35-0500Body cmMoises TRAYLOR Work Phone: [facility]11-07-2025 10:35-0500Body mass index (BMI) [Ratio]19.73 kg/r5ZqrpqyMoises Alvarado APRN-[employer] Work Phone: [facility] [employer] Jvmtnt97-89-7892 10:35-0500Body twzltpoabal63.01 [degF]Moises Alvarado APRN-[employer] Work Phone: [facility] [employer] Bxogzl25-52-7422 10:35-0500Body .71 kgMoises Alvarado APRN-[employer] Work Phone: [facility] [employer] Vqfsix34-19-0373 10:35-0500Diastolic blood wilbbkpg57 mm[Hg]Moises Alvarado APRN-[employer] Work Phone: [facility] Diagnostics Imbqyb90-51-0205 10:35-0500Heart rate 80 /minBrmelva Alvarado APRN-SAUSAGE SMOKER Work Phone: [facility] Wudgft56-26-0202 10:35-0500 Respiratory rate18 /minBrmelva Alvarado APRN-SAUSAGE SMOKER Work Phone: [facility] Ftwcwi60-94-7968 10:35-3467EqH0% (BldA) [Mass fraction]96 %Moises Alvarado APRN-CLAIR Work Phone: [facility] Zumuir33-80-5122 10:35-0500Systolic blood nmcelfax018 mm[Hg]Moises Alvarado APRN-SAUSAGE SMOKER Work Phone: [facility] Nkbyzw24-19-0123 11:38-0400Body bodppo052 cmMoises Alvarado APRN-CLAIR Work Phone: [facility] Rsgzki79-03-1824 11:38-0400Body mass index (BMI) [Ratio]18.89 kg/k7SbmoukMoises Alvarado APRN-SAUSAGE SMOKER Work Phone: [facility] Rtqnqa16-27-2396 11:38-0400Body oojwcgsblfn30.1 [degF]Moises Alvarado APRN-SAUSAGE SMOKER Work Phone: [facility] Fyruzk54-82-8113 11:38-0400Body qhible10.44 kgMoises Alvarado PVC MONITOR-SAUSAGE SMOKER Work Phone: [facility] Pqbzyh15-38-7977 11:38-0400Diastolic blood epgugdqq07 mm[Hg]Moises Alvarado PVC MONITOR-SAUSAGE SMOKER Work Phone: [facility] Fklimd58-54-8730 11:38-0400Heart rate 71 /minBrmelva Alvarado PVC MONITOR-SAUSAGE SMOKER Work Phone: [facility] Jylobt48-83-8566 11:38-0400 Respiratory rate18 /minBrmelva Alvarado PVC MONITOR-SAUSAGE SMOKER Work Phone: [facility] Elfokj06-00-3123 11:38-5366CxI6% (BldA) [Mass fraction]96 %Moises Alvarado PVC MONITOR-SAUSAGE SMOKER Work Phone: [facility] Agyjba66-35-2773 11:38-0400Systolic blood femhsjev245 mm[Hg]Moises Alvarado APRN-SAUSAGE SMOKER Work Phone: [facility] Bpgeev64-71-6577 10:44-0400Body fexcof023 cmValeadali Rush PVC MONITOR-SAUSAGE SMOKER Work Phone: [facility] Hsbzux09-67-6857 10:44-0400Body mass index (BMI) [Ratio]19.06 kg/p0GqykrbhJacob Rush APRN-SAUSAGE SMOKER Work Phone: [facility] Qucsna09-67-2297 10:44-0400Body .39 [degF]Jacob Rush PVC MONITOR-SAUSAGE SMOKER Work Phone: [facility] Qcwjpg38-00-3979 10:44-0400Body .89 kgJacob Rush PVC MONITOR-SAUSAGE SMOKER Work Phone: [facility] Fdhqvc69-05-5353 10:44-0400Diastolic blood tpocszpa80 mm[Hg]Jacob Rush PVC MONITOR-SAUSAGE SMOKER Work Phone: [facility] Dlbgqt66-21-5434 10:44-0400Heart rate 72 /minJacob Rush APRN-SAUSAGE SMOKER Work Phone: [facility] Xxypte01-66-9236 10:44-0400 Respiratory rate16 /minJacob Rush APRN-SAUSAGE SMOKER Work Phone: [facility]04-15-2025 10:44-3600TaM0% (BldA) [Mass fraction]100 %Jacob Rush APRN-SAUSAGE SMOKER Work Phone: [facility]04-15-2025 10:44-0400Systolic blood fnbogwjz973 mm[Hg]Jacob Rush APRN-SAUSAGE SMOKER Work Phone: [facility]02-12-2025 11:11-0500Body agtwzr078 cmVsantino Rush APRN-SAUSAGE SMOKER Work Phone: [facility]02-12-2025 11:11-0500Body mass index (BMI) [Ratio]18.56 kg/r7SfaqrbbJacob Rush APRN-SAUSAGE SMOKER Work Phone: [facility] Iwxbrw09-20-1424 11:11-0500Body jahcpekafwp08.5 [degF]Jacob Rush APRN-SAUSAGE SMOKER Work Phone: [facility]02-12-2025 11:11-0500Body jbefdy93.53 kgJacob Rush APRN-SAUSAGE SMOKER Work Phone: [facility]02-12-2025 11:11-0500Diastolic blood nkziarrc10 mm[Hg]Jacob Rush APRN-SAUSAGE SMOKER Work Phone: [facility]02-12-2025 11:11-0500Heart rate 74 /minJacob Rush APRN-SAUSAGE SMOKER Work Phone: [facility]02-12-2025 11:11-0500 Respiratory rate18 /minJacob Rush APRN-SAUSAGE SMOKER Work Phone: [address] [place], [place] 2755602-12-2025 11:11-0524MpE7% (BldA) [Mass fraction]99 %Jacob Rush APRN-SAUSAGE SMOKER Work Phone: [facility]02-12-2025 11:11-0500Systolic blood iudpufjf463 mm[Hg]Jacob Rush PVC MONITOR-SAUSAGE SMOKER Work Phone: [facility]01-16-2025 08:52-0500Body aexqyr446 cmValeadali Rush PVC MONITOR-SAUSAGE SMOKER Work Phone: [facility]01-16-2025 08:52-0500Body mass index (BMI) [Ratio]18.66 kg/b6VfprwhnJacob Rush APRN-SAUSAGE SMOKER Work Phone: [facility]01-16-2025 08:52-0500Body tubfbfhaaiv28.39 [degF]Jacob Rush PVC MONITOR-SAUSAGE SMOKER Work Phone: [facility]01-16-2025 08:52-0500Body yvnkaz19.8 kgJacob Rush PVC MONITOR-SAUSAGE SMOKER Work Phone: [facility]01-16-2025 08:52-0500Diastolic blood wzjhgaze51 mm[Hg]Jacob Rush PVC MONITOR-SAUSAGE SMOKER Work Phone: [facility]01-16-2025 08:52-0500Heart rate 70 /minJacob Rush PVC MONITOR-SAUSAGE SMOKER Work Phone: [facility]01-16-2025 08:52-0500 Respiratory rate20 /minJacob Rush PVC MONITOR-SAUSAGE SMOKER Work Phone: [facility]01-16-2025 08:52-8697WnL0% (BldA) [Mass fraction]97 %Jacob Rush PVC MONITOR-SAUSAGE SMOKER Work Phone: [facility]01-16-2025 08:52-0500Systolic blood otlnlwzx993 mm[Hg]Jacob Rush PVC MONITOR-SAUSAGE SMOKER Work Phone: [facility] Encounters Encounter DateEncounter TypeCare ProviderFacilityStart: 07-08-2025 End: 20-29-8201Dpmjgn Edwin Alvarado PVC MONITOR-SAUSAGE SMOKER Work Phone: [facility] Internal Medicine - Family MedicineStart: 07-05-2025 End: 18-32-9018Badzoa outpatient visit 25 minutesMoises Alvarado PVC MONITOR-SAUSAGE SMOKER Work Phone: [facility] Internal Medicine - Family MedicineComment on above:Fibromyalgia affecting multiple sites (Primary Dx); Acquired hypothyroidism; Smoker; Chronic right-sided low back pain without sciatica; Essential hypertensionStart: 07-05-2025 End: 15-94-2866leuifdpcipJUBLSFKearney Regional Medical Center Ambulatory PPGStart: 51-77-3911Xthzcwdfa for general adult medical examination without abnormal findingsKearney Regional Medical Center Ambulatory PPGStart: 06-17-2025 End: 88-60-9997MhaqheBphd [facility] Phys[facility] Internal Medicine - Family MedicineComment on above:Essential hypertensionStart: 04-10-2025 End: 19-09-1605Edkido Edwin Alvarado PVC MONITOR-SAUSAGE SMOKER Work Phone: [facility] Internal Medicine - Family MedicineStart: 04-09-2025 End: 15-75-1795Owygjiyyj encounterAleoctavio CLEMENTAProMeddale medical center Physicians Internal Medicine - Family MedicineStart: 04-02-2025 End: 79-03-4905Tmrqab-up encounterMoises Alvarado PVC MONITOR-SAUSAGE SMOKER Work Phone: [facility] Internal Medicine - Family MedicineComment on above:CBC auto differential, Lipid profile, Thyroid profile includes TSH FT4, Additional followed-up results: 2Start: 03-29-2025 End: 30-02-5998Ndvbly outpatient visit 25 minutesMoises Alvarado PVC MONITOR-SAUSAGE SMOKER Work Phone: [facility] Internal Medicine - Family MedicineComment on above:Fibromyalgia affecting multiple sites (Primary Dx); Smoker; Medication monitoring encounter; Controlled substance agreement signed; Mixed hyperlipidemia; Essential hypertension; Acquired hypothyroidism; Encounter for screening mammogram for malignant neoplasm of breast; Abnormal CBC; Hx of decompressive lumbar laminectomyStart: 03-29-2025 End: 71-18-7960vxlbavaprzVMSQSDLos [facility]os [facility] Ambulatory PPGStart: 01-04-2025 End: 10-85-1954HvmhmvBbmopkla Johnson CMAProMeditn Physicians Internal Medicine - Family MedicineComment on above:Major depressive disorder with single episode, in partial remissionStart: 12-11-2024 End: 82-62-5567Zcbhan outpatient visit 25 minutesJacob Rush PVC MONITOR-SAUSAGE SMOKER Work Phone: [facility] - Family MedicineComment on above:Fibromyalgia affecting multiple sites (Primary Dx); Mixed hyperlipidemia; Hx of decompressive lumbar laminectomy; Major depressive disorder with single episode, in partial remissionStart: 12-11-2024 End: 70-28-2151zgnqwdafwaGKQRGQVNorth [facility] Amb[facility] Start: 11-15-2024 End: 13-20-0356GkxpanCwkluxu J Castillo PVC MONITOR-SAUSAGE SMOKER Work Phone: [facility] Medicine - Family MedicineComment on above:Fibromyalgia affecting multiple sites; Essential hypertensionStart: 10-10-2024 End: 33-55-9145Lgwvkm outpatient visit 25 minutesValeadali Rush PVC MONITOR-SAUSAGE SMOKER Work Phone: [facility] Medicine - Family MedicineComment on above:Acute cystitis without hematuria (Primary Dx); Dysuria; Fibromyalgia affecting multiple sites; Hx of decompressive lumbar laminectomyStart: 10-10-2024 End: 77-39-5719jqfawewmpwPHJIYZONorth Valley Hospital Ambulatory PPG Start: 09-20-2024 End: 88-67-3802wcmfbckvxfPLYDIYKCobre [facility] HospitalStart: 09-13-2024 End: 74-52-1721efodeyvgshKKEACTMBanner [facility]on [facility] HospitalStart: 09-13-2024 End: 22-83-2525lekeqzftehCCUFHLYNorth Valley Hospital Ambulatory PPG Start: 09-13-2024 End: 93-88-3440Xzhfhr outpatient visit 25 minutesValeadali Rush LAYTON Work Phone: [facility] Internal Medicine - Family MedicineComment on above:Other iron deficiency anemia (Primary Dx); Current moderate episode of major depressive disorder without prior episode ([facility])Start: 07-25-2024 End: 79-30-9925hyethzzqotFBFFXSZ J [facility] HospitalStart: 07-11-2024 End: 33-41-1191jxkzvkftlkHPMLJNK [facility] Ambulatory PPG Start: 05-23-2024 End: 41-36-3339xasvpnqilvNYEIZOU J [facility] HospitalStart: 02-01-2024 End: 90-80-6544wmjjoqgijnZMRZCOJ [facility] HospitalStart: 01-25-2024 End: 76-52-3755iqndqhqitsBZHJHXT [facility] HospitalStart: 12-28-2023 End: 26-27-2276jcgsobhdyrYPOQNSJ [facility] HospitalStart: 67-69-3035Datczhl encounter procedureValemaria rhao Rush TRESAGabrielSAUSAGE SMOKER Work Phone: [facility] SystemStart: 09-15-2017 End: 16-27-7906Jcdwukky examinationValeadali Rush LAYTON Work Phone: [facility] Procedures DateProcedureProcedure DetailPerforming ClinicianStart: 67-46-8799Hfqqbxkmynqss metabolic panelMoises Alvarado APRN-SAUSAGE SMOKER Work Phone: Start: 44-92-8311Ruhvq panelMoises Alvarado APRN-SAUSAGE SMOKER Work Phone: Start: 15-52-8343Xpxdj depression screening assessment Moisesmelva Edwardsmarlee TRAYLOR Work Phone: Start: 88-32-4098Lcfkl dip stick/tablet rgnt non-auto w/o micrscpVsantino Devineillo [facility] Work Phone: Start: 94-50-9737Bhadp depression screening assessment Jacob Rush [facility] Work Phone: Start: 46-91-1023Pdltm depression screening assessment Jacob Rush [facility] Work Phone: Start: 51-18-2303HjafblujkzgIludiif Castillo [facility] Work Phone: Start: 03-13-1301Ljiyqee of excision of lamina of lumbar vertebra for decompression of spinal cordHx of decompressive lumbar laminectomyJacob Rush [facility] Work Phone: Start: 51-60-5526BijxmxwgtczDzhltxa Castillo [facility] Work Phone: History of excision of lamina of lumbar vertebra for decompression of spinal cordHx of decompressive lumbar laminectomyValeadali Rush [facility] Work Phone: History of excision of lamina of lumbar vertebra for decompression of spinal cordHx of decompressive lumbar laminectomyJacob Rush [facility] Work Phone: History of excision of lamina of lumbar vertebra for decompression of spinal cordHx of decompressive lumbar laminectomyMoises Alvarado [facility] Work Phone: Plan of Treatment DateCare ActivityDetailAuthorStart: 93-21-4368BTN ( or age 60+ yrs) (1 - 1-dose 75+ series)RSV ( or age 60+ yrs) (1 - 1-dose 75+ series) [facility] SystemStart: 97-63-7240Wrjzumuhf for malignant neoplasm of colonColonoscopyProSelect [facility] SystemStart: 69-93-7352Uylmd BMI ScreeningAdult BMI ScreeningProSelect [facility] SystemStart: 70-58-7970Mynjs BMI ScreeningAdult BMI ScreeningProSelect [facility] SystemStart: 00-83-9539Ccarjxlvyb Screening Depression ScreeningProSelect [facility] SystemStart: 42-24-1098Qbkb Risk Screening Fall Risk ScreeningProParma Community General Hospitalca [facility] SystemStart: 94-89-4798Voansmb Screening Tobacco ScreeningHenry County Hospitalca [facility] SystemStart: 02-13-2026 End: 52-95-5521Jrgatrm encounter zfaotdmwx86/18/2026 10:40 AM EDT Office Visit [facility] [address] [place] [address] Moises Alvarado, PVC MONITOR-SAUSAGE SMOKER [address] [place] [address] [facility] - [facility] MedicineStart: 74-29-5219Nyytt BMI ScreeningAdult BMI ScreeningProParma Community General Hospitalca [facility] SystemStart: 14-74-9250Nfbwxpk ScreeningTobacco ScreeningProParma Community General Hospitalca [facility] SystemStart: 34-37-8584Xcuvl BMI ScreeningAdult BMI ScreeningProParma Community General Hospitalca [facility] SystemStart: 52-24-3910Ydsklymeei ScreeningDepression ScreeningProParma Community General Hospitalca Health SystemStart: 52-93-4252Qufukaf ScreeningTobacco ScreeningProParma Community General Hospitalca Health SystemStart: 05-97-3319Ecope BMI ScreeningAdult BMI ScreeningProParma Community General Hospitalca [facility] SystemStart: 94-40-1230Rduqhaetna ScreeningDepression ScreeningProParma Community General Hospitalca [facility] SystemStart: 97-20-4142Hdqqdnz ScreeningTobacco ScreeningProParma Community General Hospitalca [facility] SystemStart: 09-13-2025 End: 75-80-4730Mszfeuo encounter vwtpvfuyu97/16/2026 10:40 AM EST Office Visit [facility] [address] [place] [address] Moises Alvarado, PVC MONITOR-SAUSAGE SMOKER [address] [place] [address] [facility] - [facility] MedicineStart: 07-31-2025 End: 85-58-5597Nvbukff encounter procedureSelect Medical [facility] - Mammography/DEXA ImagingStart: 07-28-2025 End: 47-56-9880CF Chest for screening WO contrastCT low dose lung screening (Annual) Imaging Routine Smoker Expected: 07/28/2025, Expires: 03/29/2026 [facility] SystemComment on above:Expected: 07/28/2025, Expires: 03/29/2026Start: 07-26-2025 End: 90-63-2335ELC Breast - bilateral screeningMammography screening bilateral with CAD Imaging Routine Encounter for screening mammogram for malignant neoplasm of breast Expected: 07/26/2025, Expires: 03/29/2026[facility] SystemComment on above:Expected: 07/26/2025, Expires: 03/29/2026Start: 52-35-4625Torw Risk ScreeningFall Risk ScreeningProRegency Hospital Cleveland Westtart: 07-05-2025 End: 75-00-2725Gozzyjz encounter hjvnnnakn67/07/2025 10:20 AM EST [facility] [address] [place] [address] Moises Alvarado, PVC MONITOR-SAUSAGE SMOKER [address] [place] [address] [facility] - [facility] MedicineStart: 23-64-0017Btytchgkf for malignant neoplasm of breastMammogramMercer County Community Hospital SystemStart: 05-09-2025 End: 87-27-2002Lwuuuci encounter procedureProHelen Keller Hospital Phys[facility] Internal Medicine - Family MedicineStart: 09-10-2025Medicare Annual Wellness VisitMedicare Annual Wellness VisitMercer County Community Hospital SystemStart: 03-12-2025 End: 28-54-2671Kniyxog encounter exiffauck98/15/2025 10:00 AM EDT [facility] [address] [place] [address] Jacob Rush, PVC MONITOR-SAUSAGE SMOKER [address] [place] [address] [facility] Internal Medicine - Family MedicineStart: 78-56-1147Nyvluus CounselingTobacco CounselingMercer County Community Hospital SystemStart: 12-11-2024 End: 42-19-2789Qqzcerx encounter xgdhudbta67/15/2025 10:40 AM EDT Office Visit [facility] [address] [place] [address] Jacob Rush, PVC MONITOR-SAUSAGE SMOKER [address] [place] [address] [facility] - [facility] MedicineStart: 52-61-4052Kyrlxnztdrllqo of varicella zoster vaccineZoster (Shingles) Vaccine (1 of 2)[facility] SystemStart: 52-31-1902Ymonraf CounselingTobacco CounselingMercer County Community Hospital System End: 47-10-2366Dqipkaxa identified in Urine by CultureUrine culture (clean catch) Microbiology Routine Acute cystitis without hematuria 1 Occurrences star ting 10/10/2024 until 10/10/2025[facility] Work Phone: Comment on above:1 Occurrences starting 10/10/2024 until 10/10/2025 End: 89-72-3994MAK W Auto Differential panel - BloodCBC auto differential Lab Routine Other iron deficiency anemia 1 Occurrences starting 09/13/2024 until 09/13/2025ProSelect Medical [facility] SystemComment on above:1 Occurrences starting 09/13/2024 until 09/13/2025 End: 79-60-8632Zlyktkobkvonwi vitamin b-12Vitamin B12 Lab Routine Other iron deficiency anemia 1 Occurrences starting 09/13/2024 until 09/13/2025ProSelect Medical [facility] SystemComment on above:1 Occurrences starting 09/13/2024 until 09/13/2025 End: 55-90-6923Wrka Screen, UrineDrug Screen, Urine Lab Routine Medication monitoring encounter 1 Occurrences starting 03/29/2025 until 03/29/2026[facility] Work Phone: Comment on above:1 Occurrences starting 03/29/2025 until 03/29/2026Drug Screen, UrineDrug Screen, Urine Lab Routine Medication monitoring encounter 03/29/2025 12:33 PM [facility] End: 52-78-4407Ahvvoczj [Mass/volume] in Serum or PlasmaFerritin Lab Routine Other iron deficiency anemia 1 Occurrences starting 09/13/2024 until 09/13/2025 [facility] SystemComment on above:1 Occurrences starting 09/13/2024 until 09/13/2025 End: 72-00-7692Mzto and TIBCIron and TIBC Lab Routine Other iron deficiency anemia 1 Occurrences starting 09/13/2024 until 09/13/2025[facility] Work Phone: Comment on above:1 Occurrences starting 09/13/2024 until 09/13/2025 End: 45-36-9550Weupmkh profile includes TSH SM7Mahxluy profile includes TSH FT4 Lab Routine Acquired hypothyroidism 1 Occurrences starting 07/05/2025 until 07/05/2026[facility] Work Phone: Comment on above:1 Occurrences starting 07/05/2025 until 07/05/2026Thyroid profile includes TSH WG7Iatzsjl profile includes TSH FT4 Lab Routine Acquired hypothyroidism 07/05/2025 11:40 AM [facility] Immunizations Immunization DateImmunizationNotesCare OmhtphdaNiinksme39-22-8670honzitzlu virus vaccine, unspecified formulationValerie Rush PVC MONITOR-SAUSAGE SMOKER Work Phone: [facility] HospitalBbready.com Cjvugw20-63-7664kszuiwtwd, injectable, quadrivalent, preservative freeValerie Rush PVC MONITOR-SAUSAGE SMOKER Work Phone: [facility] HospitalFlightCaster Work Phone: [phone]oaev, injectable, quadrivalent, preservative freeValerie Rush PVC MONITOR-SAUSAGE SMOKER Work Phone: [facility] HospitalCodigames [facility] Payers DatePayer CategoryPayerPolicy ID2018MedicareMedicare HMO[place] MEDICARE [id number] [id number] 2.0.1.8[id number] [id number] 2.0.1.089121.3.57[id number] 2.0.1.134796.3.57[id number] 2.0.1.639100.3.57[id number] 2.0.1.495301.3.57[id number] 2.0.1.301417.3.57[id number] 2.0.1.535973.3.57[id number] 2.0.1.993083.3.57[id number] 2.0.1.016228.3.57[id number] 2.840.1.097281.3.57[id number] 2.0.1.882263.3.57[id number] 2..840.1.738088.3.57[id number] 2.16.840.1.102948.3.579.2.1286 Social History DateTypeDetailFacilityStart: 44-40-2731Opzpzzp smoking status NHISSmokes tobacco dailyPomerene HospitalHistory of tobacco useCigarette SmokerMercer County Community Hospital SystemStart: 06-07-2021 End: 74-91-2457Lhthtonmdm smoked current (pack per day) - Reported0.5PThe [facility] SystemStart: 23-29-6300Bdgagxc use and exposureSmokeless tobacco non-user [facility] SystemStart: 09-13-2024 End: 97-06-5808Dyyotwshs beverage intakeCurrent non-drinker of alcohol (finding) [facility] SystemStart: 06-07-2021 End: 59-38-9978Yejikw connection and isolation panelMercer County Community Hospital SystemDo you belong to any clubs or organizations such as anglican groups, unions, fraternal or athletic groups, or school groups?NoPThe [facility] SystemAre you now , , , , never or living with a partner?MarriedMercer County Community Hospital SystemHow often to you have a drink containing alcohol?NeverMercer County Community Hospital SystemHow many standard drinks containing alcohol do you have on a typical day?1 or 2PThe [facility] SystemHow hard is it for you to pay for the very basics like food, housing, medical care, and heatingNot hard at allProMercy Health St. Anne HospitalDo you feel stress - tense, restless, nervous, or anxious, or unable to sleep at night because yourmind is troubled all the time - these days [OSQ]Not at allMercer County Community Hospital SystemStart: 04-08-2021 Fpfbwohpw71ComOrailm Health SystemStart: 88-81-5841Txu assigned at birthFemale [facility] SystemStart: 93-16-3213PhoPsjzhy (finding)[facility] SystemStart: 57-34-4992Yjvctq identityIdentifies as female gender (finding) [facility]: 22-29-9825Mqainb orientationHeterosexual (finding) [facility] Clinical Notes 09-13-2024 to 07-05-2025 Note Date & IfszFtddFaqqppbt04-61-9783 History of Present illness Narrative* Moises Andrews Jenny, PVC MONITOR-SAUSAGE SMOKER - 07/05/2025 10:20 AM EST [address] [place] [address] Patient: Funmilayo Ocampo Date of : 1955 Encounter Date: 07/05/2025 History of Present Illness: The patient is a 70 y.o. female, an established patient, and is here for Chief Complaint Patient presents with Annual Exam . HPI Patient is seen today for a controlled substance follow-up and routine cardiovascular follow-up. She does not want a wellness exam done today. I have asked that staff change visit description. Patient was in violation of her controlled substance agreement after urine screening came back withpositive cannabis. Patient would like to continue smoking marijuana and would like to stop her hydrocodone-acetaminophen. She feels the marijuana helps with her fibromyalgia pain and back pain betterthan the [place]. Patient is also wanting a refill of her gabapentin today for which she states she takes this for sleep. She has been out of this for the last 2-1/2 weeks and has not been sleeping well. Patient denies any numbness or tingling, nerve related pain or radiculopathy in the past. To her knowledge, she was placed on the gabapentin for sleep only. Patient has had NSAIDs in the past in the have hurt her stomach and not worked well but she is onlytry the [id number] ones. Her back pain on the right side in L4-L5 area is very painful today and she has not had any of her Center Line. The pain does not radiate nor cause weakness in her right leg. Problem List Items Addressed This Visit Endocrine Hypothyroidism Relevant Medications predniSONE (DELTASONE) 20 mg tablet Other Relevant Orders Thyroid profile includes TSH FT4 Nervous and Auditory Fibromyalgia affecting multiple sites - Primary Other Visit Diagnoses Smoker Chronic right-sided low back pain without sciatica Essential hypertension Relevant Medications lisinopriL (PRINIVIL,ZESTRIL) 20 mg tablet Past Medical, Family, and Social History Update: The following portions of the patient's history were reviewed and updated as appropriate: allergies, current medications, past family history, past medical history, past social history, past surgicalhistory and problem list. Past Medical History: Diagnosis Date Anxiety BRCA1 negative BRCA2 negative Depression Fibromyalgia GERD (gastroesophageal reflux disease) History of lumbar laminectomy 08/24/2018 L4, L5, S1 Hypertension IBS (irritable bowel syndrome) Migraine Vitamin D deficiency Past Surgical History: Procedure Laterality Date APPENDECTOMY BACK SURGERY 1988 disc removed l4-s1 and laminectomy CARPAL TUNNEL RELEASE CHOLECYSTECTOMY COLONOSCOPY 12/2016,03/2007 COLONOSCOPY N/A 09/19/2017 Performed by Mayur Walter DO at [facility] HYSTERECTOMY OOPHORECTOMY Current Outpatient Medications Medication Sig Dispense Refill albuterol (PROVENTIL HFA;VENTOLIN HFA) 90 mcg/actuation inhaler atorvastatin (LIPITOR) 10 mg tablet Take 1 tablet (10 mg total) by mouth in the morning. 90 tablet 1 bisoprolol (ZEBETA) 5 mg tablet Take 1 tablet (5 mg total) by mouth in the morning. 90 tablet 1 levothyroxine (SYNTHROID, LEVOTHROID) 88 MCG tablet Take 1 tablet (88 mcg total) by mouth in the morning. 90 tablet 1 venlafaxine XR (EFFEXOR XR) 75 mg 24 hr capsule Take 1 capsule (75 mg total) by mouth in the morning. 90 capsule 1 venlafaxine XR (EFFEXOR-XR) 150 mg 24 hr capsule take 1 capsule by mouth daily ALONG WITH 150 MG FOR A TOTAL DOSE OF 225 MG Strength: 150 mg 90 capsule 2 celecoxib (CeleBREX) 100 mg capsule Take 1 capsule (100 mg total) by mouth 2 (two) times a day as needed for pain. 60 capsule 1 lidocaine (LIDODERM) 5 % Place 1 patch on the skin daily. Remove & Discard patch within 12 hours or as directed by MD 10 patch 0 lisinopriL (PRINIVIL,ZESTRIL) 20 mg tablet Take 1 tablet (20 mg total) by mouth in the morning. 30 tablet 1 predniSONE (DELTASONE) 20 mg tablet Take 1 tablet (20 mg total) by mouth in the morning and 1 tablet (20 mg total) before bedtime. Do all this for 5 days. 10 tablet 0 traZODone (DESYREL) 50 mg tablet Take 1 tablet (50 mg total) by mouth nightly. 30 tablet 1 No current facility-administered medications for this visit. (All medications reviewed and updated by provider since last office visit or hospitalization) Allergies: Patient has no known allergies. Tobacco History: Social History Tobacco Use Smoking Status Every Day Current packs/day: 0.50 Average packs/day: 0.5 packs/day for 35.0 years (17.5 ttl pk-yrs) Types: Cigarettes Smokeless Tobacco Never (If patient a smoker, smoking cessation counseling offered) Social History: Social History Substance and Sexual Activity Alcohol Use No Review of Systems: Review of Systems Constitutional: Negative for chills, fever and unexpected weight change. HENT: Negative. Eyes: Negative for visual disturbance. Respiratory: Negative for chest tightness and shortness of breath. Cardiovascular: Negative for chest pain and palpitations. Gastrointestinal: Negative. Endocrine: Negative. Genitourinary: Negative for menstrual problem and pelvic pain. Musculoskeletal: Positive for arthralgias, back pain, myalgias and neck pain. Negative for gait problem, joint swelling and neck stiffness. Skin: Negative. Allergic/Immunologic: Negative. Neurological: Negative for syncope and facial asymmetry. Hematological: Does not bruise/bleed easily. Psychiatric/Behavioral: Negative. Physical Exam: BP (!) 154/94 (BP Site: Left Arm, BP Postition: Sitting, BP CUFF SIZE: M (9-13 inches)) Pulse 80 Temp 36.7 C (98 F) (Oral) Resp 18 Ht 165 cm (5' 4.96 ) Wt 53.7 kg (118 lb 6.4 oz) SpO2 96% BMI 19.73 kg/m Physical Exam Vitals reviewed. Constitutional: Appearance: Normal appearance. Comments: Very thin HENT: Head: Normocephalic and atraumatic. Mouth/Throat: Mouth: Mucous membranes are moist. Eyes: General: No scleral icterus. Pupils: Pupils are equal, round, and reactive to light. Cardiovascular: Rate and Rhythm: Normal rate and regular rhythm. Heart sounds: Normal heart sounds. Pulmonary: Effort: Pulmonary effort is normal. Breath sounds: Normal breath sounds. Abdominal: General: Bowel sounds are normal. Palpations: Abdomen is soft. Tenderness: There is no abdominal tenderness. Musculoskeletal: Lumbar back: Tenderness present. Right lower leg: No edema. Left lower leg: No edema. Comments: Patient complains of point tenderness to multiple areas of her body including bilateral shoulders, bilateral upper extremities, bilateral hips, bilateral knees, and neck Skin: General: Skin is warm. Capillary Refill: Capillary refill takes less than 2 seconds. Neurological: General: No focal deficit present. Mental Status: She is alert and oriented to person, place, and time. Gait: Gait normal. Psychiatric: Mood and Affect: Mood normal. Behavior: Behavior normal. Assessment and Plan: Funmilayo was seen today for annual exam. Diagnoses and all orders for this visit: Fibromyalgia affecting multiple sites Acquired hypothyroidism - Thyroid profile includes TSH FT4; Future - Thyroid profile includes TSH FT4 Smoker Chronic right-sided low back pain without sciatica Essential hypertension Other orders - predniSONE (DELTASONE) 20 mg tablet; Take 1 tablet (20 mg total) by mouth in the morning and 1 tablet (20 mg total) before bedtime. Do all this for 5 days. - lidocaine (LIDODERM) 5 %; Place 1 patch on the skin daily. Remove & Discard patch within 12 hours or as directed by MD - celecoxib (CeleBREX) 100 mg capsule; Take 1 capsule (100 mg total) by mouth 2 (two) times a day as needed for pain. - traZODone (DESYREL) 50 mg tablet; Take 1 tablet (50 mg total) by mouth nightly. - lisinopriL (PRINIVIL,ZESTRIL) 20 mg tablet; Take 1 tablet (20 mg total) by mouth in the morning. Follow-up: We will stop her Center Line today, see HPI. We will also stop her gabapentin as she has not been taking it in the last 2-1/2 weeks and insomnia is not an appropriate diagnosis for use of gabapentin. We will try low-dose trazodone instead to help her fall asleep easier. We will also try a burst of steroids to help with her acute on chronic back pain and fibromyalgia pain. She may also use lidocaine patches and Tylenol. After she is done with her steroids, she may trial Celebrex with food to help withher widespread pain. If this is not effectively managing her pain we will offer her a pain management referral. Patient is not interested in stopping smoking at this time. We will assess her thyroid function tests as her blood pressure is elevated today although that might be due to her 05/08 pain. Her blood pressure has been elevated for the last few visits and elevated at home with readings of 168/102, 140/101, 138/92. We will start lisinopril and reassess her bloodpressure in 2-4 weeks. She should continue to check her blood pressure at home. LAYTON MCCLENDON APRN-CNP 07/05/25 1427 documented in this encounterP[facility]08-[facility] History of Present illness Narrative* LAYTON Mcclendon - 04/10/2025 2:30 PM EDT The OARRS/MAPPS database was reviewed today and found to be appropriate. No indication of medication diversion, or non compliance. Pt is not due for refill until 05/14 LAYTON Mcclendon 04/10/25 1431 documented in this encounterPome[facility]08-12-2025 Miscellaneous Notes* Telephone Encounter - Joselo Boland CNA - 04/09/2025 1:16 PM EDT Attempted to contact patient regarding rescheduling her 05/09 appointment. Patient did not answer. Left a voicemail for patient to call back. documented in this encounterPome[facility]08-12-2025 Telephone encounter Note* Telephone Encounter - Joselo Boland CNA - 04/09/2025 1:16 PM EDT Attempted to contact patient regarding rescheduling her 05/09 appointment. Patient did not answer. Left a voicemail for patient to call back. [facility]08[facility] History of Present illness Narrative* Moises Alvarado, PVC MONITOR-SAUSAGE SMOKER - 03/29/2025 11:40 AM EDT [address] [place] [id number] Patient: Funmilayo Ocampo Date of : 1955 Encounter Date: 03/29/2025 History of Present Illness: The patient is a 69 y.o. female, an established patient, and is here for Chief Complaint Patient presents with controlled medications . HPI Patient is here to establish care today from provider who has now left the office. She is here for controlled substance refill and to review her chronic medical problems. She is a daily smoker with a17 year pack history. She would like to quit but does not see that is feasible at this time and shedoes not want to try any medications for this. She has tried patches in the past and this did not help her quit. Patient states she has been on the hydrocodone acetaminophen for years for her fibromyalgia pain. States she has tried NSAIDs in the past such as naproxen and they did upset her stomach and did not significantly help with her fibromyalgia pain. She does not find adequate relief with Tylenol. She has no recent specific imaging to her joints or back or neck in her EMR. There is no inflammatory marker or rheumatology workup in the past several years present in her EMR. She does not take the Center Line everyday but a few times a week when she has flares . For example she was in the ER with her brotheryesterday and needed to take a dose at the end of the day because she had widespread body pain after sitting and waiting in the ER all day. Patient states the Center Line does help increase her quality of life and allow her to be more active on her bad flare-up days. She has never seen a specialist for this. Problem List Items Addressed This Visit Endocrine Hypothyroidism Relevant Orders Thyroid profile includes TSH FT4 Nervous and Auditory Fibromyalgia affecting multiple sites - Primary Relevant Medications HYDROcodone-acetaminophen (NORCO) 5-325 mg per tablet Other Hx of decompressive lumbar laminectomy (Chronic) Relevant Medications HYDROcodone-acetaminophen (NORCO) 5-325 mg per tablet Screening for malignant neoplasm of breast Relevant Orders Mammography screening bilateral with CAD Mixed hyperlipidemia Relevant Medications atorvastatin (LIPITOR) 10 mg tablet Other Relevant Orders Lipid profile Other Visit Diagnoses Smoker Relevant Orders CT low dose lung screening (Annual) Medication monitoring encounter Relevant Orders Drug Screen, Urine Controlled substance agreement signed Essential hypertension Relevant Orders Comprehensive metabolic panel Abnormal CBC Relevant Orders CBC auto differential Past Medical, Family, and Social History Update: The following portions of the patient's history were reviewed and updated as appropriate: allergies, current medications, past family history, past medical history, past social history, past surgicalhistory and problem list. Past Medical History: Diagnosis Date Anxiety BRCA1 negative BRCA2 negative Depression Fibromyalgia GERD (gastroesophageal reflux disease) History of lumbar laminectomy 08/24/2018 L4, L5, S1 Hypertension IBS (irritable bowel syndrome) Migraine Vitamin D deficiency Past Surgical History: Procedure Laterality Date APPENDECTOMY BACK SURGERY 1988 disc removed l4-s1 and laminectomy CARPAL TUNNEL RELEASE CHOLECYSTECTOMY COLONOSCOPY 12/2016,03/2007 COLONOSCOPY N/A 09/19/2017 Performed by Mayur Walter DO at [facility] HYSTERECTOMY OOPHORECTOMY Current Outpatient Medications Medication Sig Dispense Refill albuterol (PROVENTIL HFA;VENTOLIN HFA) 90 mcg/actuation inhaler bisoprolol (ZEBETA) 5 mg tablet TAKE ONE TABLET BY MOUTH EVERY MORNING 90 tablet 1 gabapentin (NEURONTIN) 300 mg capsule TAKE 1 CAPSULE BY MOUTH AT BEDTIME 90 capsule 1 levothyroxine (SYNTHROID, LEVOTHROID) 100 MCG tablet Take 1 tablet (100 mcg total) by mouth in the morning. 90 tablet 1 venlafaxine XR (EFFEXOR XR) 75 mg 24 hr capsule Take 1 capsule (75 mg total) by mouth in the morning. 90 capsule 1 venlafaxine XR (EFFEXOR-XR) 150 mg 24 hr capsule take 1 capsule by mouth daily ALONG WITH 150 MG FOR A TOTAL DOSE OF 225 MG Strength: 150 mg 90 capsule 2 atorvastatin (LIPITOR) 10 mg tablet Take 1 tablet (10 mg total) by mouth in the morning. 90 tablet 1 HYDROcodone-acetaminophen (NORCO) 5-325 mg per tablet Take 1 tablet by mouth every 12 (twelve) hours as needed for pain. Max Daily Amount: 2 tablets 50 tablet 0 No current facility-administered medications for this visit. (All medications reviewed and updated by provider since last office visit or hospitalization) Allergies: Patient has no known allergies. Tobacco History: Social History Tobacco Use Smoking Status Every Day Current packs/day: 0.50 Average packs/day: 0.5 packs/day for 35.0 years (17.5 ttl pk-yrs) Types: Cigarettes Smokeless Tobacco Never (If patient a smoker, smoking cessation counseling offered) Social History: Social History Substance and Sexual Activity Alcohol Use No Review of Systems: Review of Systems Constitutional: Negative for chills, fever and unexpected weight change. HENT: Negative. Eyes: Negative for visual disturbance. Respiratory: Negative for chest tightness and shortness of breath. Cardiovascular: Negative for chest pain and palpitations. Gastrointestinal: Negative. Endocrine: Negative. Genitourinary: Negative for menstrual problem and pelvic pain. Musculoskeletal: Positive for arthralgias, myalgias and neck pain. Negative for back pain, gait problem, joint swelling and neck stiffness. Skin: Negative. Allergic/Immunologic: Negative. Neurological: Negative for syncope and facial asymmetry. Hematological: Does not bruise/bleed easily. Psychiatric/Behavioral: Negative. Physical Exam: BP 128/78 (BP Site: Left Arm, BP Postition: Sitting, BP CUFF SIZE: M (9-13 inches)) Pulse 71 Temp 36.7 C (98.1 F) (Oral) Resp 18 Ht 165 cm (5' 4.96 ) Wt 51.4 kg (113 lb 6.4 oz) SpO2 96% BMI 18.89 kg/m Physical Exam Vitals reviewed. Constitutional: Appearance: Normal appearance. Comments: Very thin HENT: Head: Normocephalic and atraumatic. Mouth/Throat: Mouth: Mucous membranes are moist. Eyes: General: No scleral icterus. Pupils: Pupils are equal, round, and reactive to light. Cardiovascular: Rate and Rhythm: Normal rate and regular rhythm. Heart sounds: Normal heart sounds. Pulmonary: Effort: Pulmonary effort is normal. Breath sounds: Normal breath sounds. Abdominal: General: Bowel sounds are normal. Palpations: Abdomen is soft. Tenderness: There is no abdominal tenderness. Musculoskeletal: Right lower leg: No edema. Left lower leg: No edema. Comments: Patient complains of point tenderness to multiple areas of her body including bilateral shoulders, bilateral upper extremities, bilateral hips, bilateral knees, and neck Skin: General: Skin is warm. Capillary Refill: Capillary refill takes less than 2 seconds. Neurological: General: No focal deficit present. Mental Status: She is alert and oriented to person, place, and time. Gait: Gait normal. Psychiatric: Mood and Affect: Mood normal. Behavior: Behavior normal. Assessment and Plan: Funmilayo was seen today for controlled medications. Diagnoses and all orders for this visit: Fibromyalgia affecting multiple sites - HYDROcodone-acetaminophen (NORCO) 5-325 mg per tablet; Take 1 tablet by mouth every 12 (twelve) hours as needed for pain. Max Daily Amount: 2 tablets Smoker - CT low dose lung screening (Annual); Future Medication monitoring encounter - Drug Screen, Urine; Future - Drug Screen, Urine Controlled substance agreement signed Mixed hyperlipidemia - Lipid profile; Future - Lipid profile Essential hypertension - Comprehensive metabolic panel; Future - Comprehensive metabolic panel Acquired hypothyroidism - Thyroid profile includes TSH FT4; Future - Thyroid profile includes TSH FT4 Encounter for screening mammogram for malignant neoplasm of breast - Mammography screening bilateral with CAD; Future Abnormal CBC - CBC auto differential; Future - CBC auto differential Hx of decompressive lumbar laminectomy - HYDROcodone-acetaminophen (NORCO) 5-325 mg per tablet; Take 1 tablet by mouth every 12 (twelve) hours as needed for pain. Max Daily Amount: 2 tablets Other orders - atorvastatin (LIPITOR) 10 mg tablet; Take 1 tablet (10 mg total) by mouth in the morning. Follow-up: Patient has signed a controlled substance agreement and will get a urine drug screen today. She waspositive for THC on last year's urine drug screen and I do not see any recording of marijuana products in her OAR RS. I have asked that she stop use of recreational marijuana while she is on the opioid medication and she agrees to do so. Pointed out #18 On her controlled substance agreement that she is signing today also states this. She is open to considering other forms of treatment for her fibromyalgia such as NSAIDs in the future. She is open to possibly decreasing her dose or stopping the medication if these medicines are effective in the future. The OARRS/MAPPS database was reviewed today and found to be appropriate. No indication of medication diversion, or non compliance. Shared decision-making made for low-dose CT scan in June for follow-up yearly. Patient is not ready yet to quit smoking despite knowing negative health consequences. Patient's blood pressure is at goal, no changes. Labs as above and patient agrees to continue self-breast exams. Her CBC has been abnormal for the last several checks so we will follow-up on this. She has not seen Hematology for this. Flow cytometry evaluation normal. Patient's 10 year cardiovascular risk is elevated at 15% today and she is willing to switch her statin to Lipitor. We will recheck her lipids today as it has been 2 years. F/u in office in 3mo. LAYTON MCCLENDON APRN-CNP 03/29/25 1433 documented in this encounterPome[facility]05-09-2025 Miscellaneous Notes* Telephone Encounter - Kosta Yusuf CMA - 01/04/2025 12:33 PM EDT Patient called and would like a refill on Venlafaxine 150 documented in this encounterPome[facility] Hospital05-09-2025 Telephone encounter Note* Telephone Encounter - Kosta Yusuf CMA - 01/04/2025 12:33 PM EDT Patient called and would like a refill on Venlafaxine 150 [facility]04-[facility] History of Present illness Narrative* LAYTON Bains - 12/11/2024 10:40 AM EDT Images from the original note were not included. [address] [facility] [id number] SUBJECTIVE: Patient ID: Funmilayo Ocampo is a 69 y.o. female. Chief Complaint Patient presents with controlled medication Presents for controlled substance contract visit. She is taking Center Line 5.325 mg oral every 12 hours PRN for pain She has fibromyalgia, osteoarthritis, and history of lumbar back surgery. Today, she admits her pain level of her lumbar back is higher due to weather changes. States she stopped Vraylar. Did not feel was helping her moods.She is currently taking Effexor XR 225 mg oral daily. Pain This is a chronic problem. The current episode started more than 1 year ago. The problem occurs intermittently. The problem has been waxing and waning. Associated symptoms include arthralgias and myalgias. Pertinent negatives include no chest pain, chills or fever. Exacerbated by: weather changes. She has tried acetaminophen and oral narcotics for the symptoms. The treatment provided significant relief. The following portions of the patient's history were reviewed and updated as appropriate: allergies, current medications, past family history, past medical history, past social history, past surgicalhistory and problem list. Past Surgical History: Procedure Laterality Date APPENDECTOMY BACK SURGERY 1988 disc removed l4-s1 and laminectomy CARPAL TUNNEL RELEASE CHOLECYSTECTOMY COLONOSCOPY 12/2016,03/2007 COLONOSCOPY N/A 09/19/2017 Performed by Mayur Walter DO at [facility] HYSTERECTOMY OOPHORECTOMY Past Medical History: Diagnosis Date Anxiety BRCA1 negative BRCA2 negative Depression Fibromyalgia GERD (gastroesophageal reflux disease) History of lumbar laminectomy 08/24/2018 L4, L5, S1 Hypertension IBS (irritable bowel syndrome) Migraine Vitamin D deficiency Immunization History Administered Date(s) Administered Influenza, Injectable, quadrivalent (PF) 09/15/2017, 05/11/2019 Influenza, Unspecified 05/11/2019 REVIEW OF SYSTEMS: Review of Systems Constitutional: Negative for chills and fever. HENT: Negative. Eyes: Negative for visual disturbance. Respiratory: Negative for chest tightness and shortness of breath. Cardiovascular: Negative for chest pain and palpitations. Gastrointestinal: Negative. Endocrine: Negative. Genitourinary: Negative for menstrual problem and pelvic pain. Musculoskeletal: Positive for arthralgias and myalgias. Skin: Negative. Allergic/Immunologic: Negative. Neurological: Negative for syncope and facial asymmetry. Hematological: Does not bruise/bleed easily. Psychiatric/Behavioral: Negative. PHYSICAL EXAMINATION: Vitals: 12/11/24 1044 BP: 130/90 BP Site: Left Arm BP Postition: Sitting BP CUFF SIZE: S (7-9 inches) Pulse: 72 Resp: 16 Temp: 36.3 C (97.4 F) TempSrc: Tympanic SpO2: 100% Weight: 51.9 kg (114 lb 6.4 oz) Height: 165 cm (5' 4.96 ) Patient noted to have elevated BMI and the following intervention(s) were applied: encouragement toexercise. Physical Exam Vitals and nursing note reviewed. [...] normal. ASSESSMENT/PLAN: Funmilayo was seen today for controlled medication. Diagnoses and all orders for this visit: Fibromyalgia affecting multiple sites - HYDROcodone-acetaminophen (NORCO) 5-325 mg per tablet; Take 1 tablet by mouth every 12 (twelve) hours as needed for pain. Max Daily Amount: 2 tablets Mixed hyperlipidemia - simvastatin (ZOCOR) 5 mg tablet; Take 1 tablet (5 mg total) by mouth nightly. Hx of decompressive lumbar laminectomy - HYDROcodone-acetaminophen (NORCO) 5-325 mg per tablet; Take 1 tablet by mouth every 12 (twelve) hours as needed for pain. Max Daily Amount: 2 tablets Major depressive disorder with single episode, in partial remission - venlafaxine XR (EFFEXOR XR) 75 mg 24 hr capsule; Take 1 capsule (75 mg total) by mouth in the morning. - venlafaxine XR (EFFEXOR-XR) 150 mg 24 hr capsule; take 1 capsule by mouth daily ALONG WITH 150 MGFOR A TOTAL DOSE OF 225 MG Strength: 150 mg Chronic pain -Fibromyalgia. Continue gabapentin 300 mg oral at HS -Osteoarthritis multiple joints. History of lumbar back surgery. She does not take Center Line every day. Last fill was September 2024 Narcotic contract updated today Mixed hyperlipidemia Continue simvastatin 5 mg oral daily Depression She still has days with sadness. She stopped Vraylar as she felt was providing no benefit. Continue Effexor XR 225 mg oral daily Patient is a current smoker, smoking cessation discussed today in office. He/She is not interested at this time The OARRS/MAPPS database was reviewed today and found to be appropriate. No indication of medication diversion, or non compliance. ALL QUESTIONS ANSWERED Total time spent was 25 minutes: Preparing to see the patient (e.g., review of tests) Obtaining and/or reviewing separately obtained history Performing a medically appropriate examination and/or evaluation Counseling and educating the patient/family/caregiver Ordering medications, tests, or procedures Follow-up: 3 months Controlled contract, Center Line. Due for yearly labs LAYTON Bains 12/11/24 1408 documented in this encounterHenry County HospitalCodigames [facility] [id number] History of Present illness Narrative* LAYTON Bains - 10/10/2024 11:00 AM EST Images from the original note were not included. [address] [facility] [id number] SUBJECTIVE: Patient ID: Funmilayo Ocampo is a 69 y.o. female. Chief Complaint Patient presents with Urinary Tract Infection Fibromyalgia pain Patient presents today with several concerns. She feels she may have a UTI. Has been experiencing dysuria, urine has strong odor, and has low back pain. Onset was approximately 5-7 days ago. Denies fever. She states last UTI was over 10 years ago. Additionally, states her fibromyalgia has been flared over the last several weeks. He trigger is the rapid barometer changes and cold weather at this time. The pain has been interfering with her moods as well. Urinary Tract Infection This is a new problem. The current episode started in the past 7 days. The problem occurs every urination. The problem has been gradually worsening. The pain is at a severity of 6/10. The pain is moderate. There has been no fever. She is Not sexually active. There is No history of pyelonephritis. Associated symptoms include flank pain, frequency, hesitancy and urgency. Pertinent negatives includeno chills. She has tried increased fluids for the symptoms. The treatment provided no relief. The following portions of the patient's history were reviewed and updated as appropriate: allergies, current medications, past family history, past medical history, past social history, past surgicalhistory and problem list. Past Surgical History: Procedure Laterality Date APPENDECTOMY BACK SURGERY 1988 disc removed l4-s1 and laminectomy CARPAL TUNNEL RELEASE CHOLECYSTECTOMY COLONOSCOPY 12/2016,03/2007 COLONOSCOPY N/A 09/19/2017 Performed by Mayur Walter DO at [facility] HYSTERECTOMY OOPHORECTOMY Past Medical History: Diagnosis Date Anxiety BRCA1 negative BRCA2 negative Depression Fibromyalgia GERD (gastroesophageal reflux disease) History of lumbar laminectomy 08/24/2018 L4, L5, S1 Hypertension IBS (irritable bowel syndrome) Migraine Vitamin D deficiency Immunization History Administered Date(s) Administered Influenza, Injectable, quadrivalent (PF) 09/15/2017, 05/11/2019 Influenza, Unspecified 05/11/2019 REVIEW OF SYSTEMS: Review of Systems Constitutional: Negative for chills and fever. HENT: Negative. Eyes: Negative for visual disturbance. Respiratory: Negative for chest tightness and shortness of breath. Cardiovascular: Negative for chest pain and palpitations. Gastrointestinal: Negative. Endocrine: Negative. Genitourinary: Positive for flank pain, frequency, hesitancy and urgency. Negative for menstrual problem and pelvic pain. Skin: Negative. Allergic/Immunologic: Negative. Neurological: Negative for syncope and facial asymmetry. Hematological: Does not bruise/bleed easily. Psychiatric/Behavioral: Negative. PHYSICAL EXAMINATION: Vitals: 10/10/24 1111 BP: 130/80 BP Site: Left Arm BP Postition: Sitting Pulse: 74 Resp: 18 Temp: 36.4 C (97.5 F) TempSrc: Oral SpO2: 99% Weight: 50.5 kg (111 lb 6.4 oz) Height: 165 cm (5' 4.96 ) Patient noted to have elevated BMI and the following intervention(s) were applied: encouragement toexercise. Physical Exam Vitals and nursing note reviewed. [...] mass. Tenderness: There is no abdominal tenderness. Comments: Suprapubic tenderness Musculoskeletal: General: Normal range of motion. Cervical [...] normal. ASSESSMENT/PLAN: Funmilayo was seen today for urinary tract infection and fibromyalgia pain. Diagnoses and all orders for this visit: Dysuria - POCT urinalysis dipstick only Fibromyalgia affecting multiple sites - HYDROcodone-acetaminophen (NORCO) 5-325 mg per tablet; Take 1 tablet by mouth every 12 (twelve) hours as needed for pain. Max Daily Amount: 2 tablets - predniSONE (DELTASONE) 20 mg tablet; Take 1 tablet (20 mg total) by mouth See Admin Instructions.1 tab 2x daily x3 days, 1 tab daily x3 days, 1/2 tablet daily x4 days Hx of decompressive lumbar laminectomy - HYDROcodone-acetaminophen (NORCO) 5-325 mg per tablet; Take 1 tablet by mouth every 12 (twelve) hours as needed for pain. Max Daily Amount: 2 tablets Acute cystitis without hematuria - sulfamethoxazole-trimethoprim (BACTRIM DS) 800-160 mg per tablet; Take 1 tablet by mouth in the morning and 1 tablet before bedtime. Do all this for 10 days. Take with food. - Urine culture (clean catch); Future UTI Urine dip reveals trace blood, positive nitrates, small leukocyte esterase. Send urine for culture Start Bactrim DS oral one tablet twice daily for 10 days. Increase fluids Depression Scoring is higher today. Patient states she has been more down over the past several weeks due to fibromyalgia pain and now having a UTI. Samples of Vraylar 1.5 mg oral daily provided today Fibromyalgia Patient states Prednisone taper works best for her fibromyalgia exacerbations. Start Prednisone 20 mg oral taper as directed Reorder Center Line 5.325 every 12 hours PRN pain ALL QUESTIONS ANSWERED Total time spent was 30 minutes: Preparing to see the patient (e.g., review of tests) Obtaining and/or reviewing separately obtained history Performing a medically appropriate examination and/or evaluation Counseling and educating the patient/family/caregiver Ordering medications, tests, or procedures Follow-up: Next scheduled Sooner if needed LAYTON Bains 10/10/24 1147 [facility] History of Present illness Narrative* LAYTON Bains - 09/13/2024 8:40 AM EST Images from the original note were not included. [address] [facility] [address] SUBJECTIVE: Patient ID: Funmilayo Ocampo is a 69 y.o. female. Chief Complaint Patient presents with discuss medications Presents today for increased fatigue, decreased appetite, and depressive symptoms. Vraylar was increased to 3 mg at last visit for symptoms. She states symptoms worsened after dose increase. She doeshave history of iron deficiency anemia. Is not currently taking iron supplements as she states upsets her stomach and causes constipation. The following portions of the patient's history were reviewed and updated as appropriate: allergies, current medications, past family history, past medical history, past social history, past surgicalhistory and problem list. Past Surgical History: Procedure Laterality Date APPENDECTOMY BACK SURGERY 1988 disc removed l4-s1 and laminectomy CARPAL TUNNEL RELEASE CHOLECYSTECTOMY COLONOSCOPY 12/2016,03/2007 COLONOSCOPY N/A 09/19/2017 Performed by Mayur Walter DO at [facility] HYSTERECTOMY OOPHORECTOMY Past Medical History: Diagnosis Date Anxiety BRCA1 negative BRCA2 negative Depression Fibromyalgia GERD (gastroesophageal reflux disease) History of lumbar laminectomy 08/24/2018 L4, L5, S1 Hypertension IBS (irritable bowel syndrome) Migraine Vitamin D deficiency Immunization History Administered Date(s) Administered Influenza, Injectable, quadrivalent (PF) 09/15/2017, 05/11/2019 Influenza, Unspecified 05/11/2019 REVIEW OF SYSTEMS: Review of Systems Constitutional: Positive for appetite change and fatigue. Negative for chills and fever. HENT: Negative. Eyes: Negative for visual disturbance. Respiratory: Negative for chest tightness and shortness of breath. Cardiovascular: Negative for chest pain and palpitations. Gastrointestinal: Negative. Endocrine: Negative. Genitourinary: Negative for menstrual problem and pelvic pain. Musculoskeletal: Negative. Skin: Negative. Allergic/Immunologic: Negative. Neurological: Negative for syncope and facial asymmetry. Hematological: Does not bruise/bleed easily. Psychiatric/Behavioral: Positive for decreased concentration. PHYSICAL EXAMINATION: Vitals: 09/13/24 0852 BP: 140/80 BP Site: Left Arm BP Postition: Sitting BP CUFF SIZE: M (9-13 inches) Pulse: 70 Resp: 20 Temp: 36.3 C (97.4 F) TempSrc: Oral SpO2: 97% Weight: 50.8 kg (112 lb) Height: 165 cm (5' 4.96 ) Patient noted to have elevated BMI and the following intervention(s) were applied: encouragement toexercise. Physical Exam Vitals and nursing note reviewed. [...] normal. ASSESSMENT/PLAN: Funmilayo was seen today for discuss medications. Diagnoses and all orders for this visit: Other iron deficiency anemia - Iron and TIBC; Future - Vitamin B12; Future - Ferritin; Future - CBC auto differential; Future Current moderate episode of major depressive disorder without prior episode (CMS-HCC) Decrease Vraylar to 1.5 mg oral daily. Samples provided. Continue Effexor XR 225 mg oral daily. Discussed counseling today. Goal is to establish coping mechanism to handle daily stressors. We diddiscuss referral to psychiatry if her depressive symptoms do not improve. She will consider this. Iron deficiency anemia Check iron panel today History of iron deficiency anemia. Is not currently taking iron supplements as she states upsets her stomach and causes constipation. ALL QUESTIONS ANSWERED Total time spent was 25 minutes: Preparing to see the patient (e.g., review of tests) Obtaining and/or reviewing separately obtained history Performing a medically appropriate examination and/or evaluation Counseling and educating the patient/family/caregiver Ordering medications, tests, or procedures Follow-up: 2 months Jacob Rush APRN-CLAIR 09/13/24 2333 documented in this encounterP[facility]01-16-2025 Instructions* Patient Instructions* LAYTON Bains - 09/13/2024 8:40 AM EST Are You Ready To Kick The Habit? Free Tobacco Cessation Resources [facility] Services [facility] provide all employees with free tobacco cessation services that include: Counseling to understand nicotine addiction Education about medications that can help you successfully quit Assistance with developing a plan to quit Call to set up an individual appointment or find out when group classes will be held: [facility]: [phone] [facility]: [phone] [facility]: [phone] [facility]: [phone] Quit Smoking Action Plan and Resources [facility] offers an eight-week, online smoking cessation plan to all [facility] employees, regardless of whether [employer] is your medical insurance provider. Go to [email or web address] and click the Health Risk Assessment and Resources link to get started. In the [employer] menu, click Action Plans instead of Health Risk Assessment to access the Quit Smoking Action Plan. Additional smoking cessation resources are also available to all [facility] employees on the Chwmx8Kkqgwq web page at www.[email or web address]. [employer] Tobacco Cessation Program If [employer] is your medical insurance provider, there are more free resources available to you, including: No copays or deductibles on local tobacco cessation counseling services to help you quit Prescription assistance for tobacco cessation medications to help you quit For details about the tobacco cessation program available to [employer] members, go to www.[employer] (Search: Tobacco Cessation Program). [place] Tobacco Quit Line 9-950-MXZV-NOW ( ) is a toll-free, telephonic service that helps [place] residents quit smoking and using tobacco. It is staffed by experts who tailor a quit plan for you and provide you with advice. [place] Tobacco Quit Line 7-067-LTSC-NOW ( ) is a toll-free, telephonic service that helps [place] residents quit smoking and using tobacco. It is staffed by experts who tailor a quit plan for you and provide you with advice. Two weeks of nicotine replacement therapy may be provided at no charge, if needed. Additional Resources These national organizations also offer free information and resources to help you quit tobacco: [place] [employer]--www.cancer.org/healthy/stayawayfromtobacco [place] [employer]--www.heart.org (Search: Quit Smoking) Centers for Disease Control and Prevention--www.cdc.gov/tobacco [place] [employer]--www.lungusa.org * Attachments The following attachments cannot be sent through Care Everywhere. * Depression (Syrian) [facility]* Diagnosis Other iron deficiency anemia- Primary Current moderate episode of major depressive disorder without prior episode ([facility]) documented in this encounter [facility]* Diagnosis Acute cystitis without hematuria- Primary Dysuria Fibromyalgia affecting multiple sites Hx of decompressive lumbar laminectomy documented in [facility] encounter [facility]* Diagnosis Fibromyalgia affecting multiple sites Essential hypertension Unspecified essential hypertension documented in [facility]* Diagnosis Fibromyalgia affecting multiple sites- Primary Mixed hyperlipidemia Hx of decompressive lumbar laminectomy Major depressive disorder with single episode, in partial remission documented in this encounter [facility]* Diagnosis Major depressive disorder with single episode, in partial remission documented in this encounter [facility]* Diagnosis Fibromyalgia affecting multiple sites- Primary Smoker Tobacco use disorder Medication monitoring encounter Encounter for therapeutic drug monitoring Controlled substance agreement signed Mixed hyperlipidemia Essential hypertension Unspecified essential hypertension Acquired hypothyroidism Unspecified hypothyroidism Encounter for screening mammogram for malignant neoplasm of breast Abnormal CBC Other abnormal blood chemistry Hx of decompressive lumbar laminectomy documented in this encounter [facility]* Diagnosis Essential hypertension Unspecified essential hypertension documented in [facility] encounter [facility]* Diagnosis Fibromyalgia affecting multiple sites- Primary Acquired hypothyroidism Unspecified hypothyroidism Smoker Tobacco use disorder Chronic right-sided low back pain without sciatica Essential hypertension Unspecified essential hypertension documented in this encounter [facility] SystemInstructionsNot on filedocumented in this encounter [facility] SystemInstructionsNot on filedocumented in this encounter [facility] SystemInstructions* Attachments The following attachments cannot be sent through Care Everywhere. * Hypothyroidism (underactive thyroid) (Syrian) documented in this encounterProHel[facility] SystemInstructionsNot on file documented in this encounterMer[facility] SystemInstructions* Attachments The following attachments cannot be sent through Care Everywhere. * Atorvastatin, ADULT (Syrian) documented in this encounterProHelen [facility] Health SystemInstructionsNot on file documented in this encounterProHelen [facility] Health SystemInstructionsNot on file documented in this encounterProSelect Medical [facility] SystemInstructionsNot on file documented in this encounterMercer [facility] SystemInstructions* Attachments The following attachments cannot be sent through Care Everywhere. * Lisinopril (Syrian) documented in this encounterMer[facility] Advance Directives TypeDate RecordedPatient RepresentativeExplanationAdvance Directive10/06/2017 9:36 AMABN 10/06/17TypeDate RecordedPatient RepresentativeExplanationAdvance Directive 10/06/2017 9:36 AMABN 10/06/17 Summary Purpose Family History No Family History Records FoundNo Family History Records FoundNo Family History Records Found Additional Source Comments Reason for Visit (unrecogniz ed section and content) ReasonCommentsdiscuss medicationsReasonCommentsUrinary Tract Infection Fibromyalgia painReasonCommentsMed RefillReasonCommentscontrolled medication ReasonCommentscontrolled medicationsReasonOnset DateCommentsMed Bbbmjj5106/17/2025 ReasonCommentsAnnual Exam Care Teams (unrecognized sec tion and content) Team MemberRelationshipSpecialtyStart DateEnd Date Jacob Rush APRN-CLAIR [address] [place] [address] PCP - GeneralFamily Medicine09/09/17Team MemberRelationshipSpecialtyStart DateEnd Date Jacob Rush APRN-CLAIR [address] [place] [address] PCP - GeneralFamily Medicine09/09/17Team MemberRelationshipSpecialtyStart DateEnd Date Jacob Rush, [facility] [address] [place] [address] PCP - GeneralFamily Medicine09/09/17Team MemberRelationshipSpecialtyStart DateEnd Date Jacob Rush, [employer] [facility] [address] [place] [address] PCP - GeneralFamily Medicine09/09/17Team MemberRelationshipSpecialtyStart DateEnd Date Jacob Rush, [facility] [facility] [address] [place] [address] PCP - GeneralFamily Medicine09/09/17Team MemberRelationshipSpecialtyStart DateEnd Date Moises Alvarado, [facility] [address] [place] [address] PCP - GeneralFamily Medicine02/27/25Team MemberRelationshipSpecialtyStart DateEnd Date Moises Alvarado, [facility] [address] [place] [address] PCP - GeneralFamily Medicine02/27/25Team MemberRelationshipSpecialtyStart DateEnd Date Moises Alvarado, [employer] [facility] [address] [place] [address] PCP - [facility]02/27/25Team MemberRelationshipSpecialtyStart DateEnd Date Moises AlvaradoTRESA-CLAIR [address] [place] [address] PCP - [facility]02/27/25Team MemberRelationshipSpecialtyStart DateEnd Date Moises AlvaradoTRESA-SAUSAGE SMOKER [address] [place] [address] PCP - [facility]02/27/25 INFORMATION SOURCE (unrecogn ized section and content) DATE CREATED AUTHOR 09/16/2024 [facility] DATE CREATED AUTHOR AUTHOR'S ORGANIZ ATION 09/25/2024 [facility] DATE CREATED AUTHOR AUTHOR'S ORGANIZ ATION 07/07/2025 [facility] FOR RECORDS PERTAINING TO PATIENTS WHO ARE [...] BE BASED ON THE PRIMARY CLINICAL RECORDS. [facility]. provides no warranty or guarantee of the accuracy or completeness of information in this document.
--- OUTSIDE RECORDS SUMMARY | 2025-08-24 12:43 | XMS_ITS | Encounter Summary ---
Author Organization [employer] tem Address [facility] [id number] [address] [place] [address] Care Team Providers Care Motor Vehicle Parts Interpreter Name Role Phone Azul Almanza PLASTER MECHANIC-CREOSOTING ENGINEER Primary Care Provider + Encounter Details DateTypeDepartmentCare Team (Latest Contact Info)Ttxlqgoakkh96/22/2025Travel Social History Tobacco UseTypesPacks/DayYears UsedDateSmoking Tobacco: Every DayCigarettes0.535 Smokeless Tobacco: NeverAlcohol UseStandard Drinks/WeekCommentsNo0 (1 standard drink = 0.6 oz pure alcohol)Social Connection and Isolation PanelAnswerDate RecordedIn a typical week, how many times do you talk on the phone with family, friends, or neighbors?Once a week06/07/2021How often do you get together with friends or relatives?Once a week06/07/2021How often do you attend hinduism or latter day services?Never1Do you belong to any clubs or organizations such as hinduism groups, unions, fraternal or athletic groups, or school groups?No 06/07/2021How often do you attend meetings of the clubs or organizations you belong to?Never06/07/2021re you , , , , never , or living with a partner?Zexsprc4706/07/2021UDIT-CAnswerDate RecordedQ1: How often do you have a [...] care, and heating?Not hard at all03/27/2025PHQ-2AnswerDate RecordedTotal Iszvq72210/13/2024 [facility] [place] [facility] Occupational Health - Occupational Stress Questionnaire [...] a household?No03/27/2025hildcareAnswer Date RecordedDo problems getting child welfare social worker make it difficult for you to work [...] a purpose and direction in my life.Strongly Agree1EducationAnswerDate RecordedWhat is the highest level of school you have completed or the highest degree you have received?GED or ucztievwaa06/11/2021CommentsNoSex and Gender InformationValueDate RecordedSex Assigned at LrysvQlcdat00/17/2022 8:42 AM ESTLegal SexFemale 04/03/2015 11:40 AM EDTGender IpvvfansEcfupu96/17/2022 8:42 AM ESTSexual ZsctuxxyeqwPrzjeuox65/17/2022 8:42 AM ESTdocumented as of this encounter Plan of Treatment DateTypeDepartmentCare Team (Latest Contact Info)Nlnxfnjhikv86/16/2026 10:40 AM ESTOffice Visit [facility] [address] [place] [address] Patrice Tucker, PLASTER MECHANIC-CREOSOTING ENGINEER [address], [address] [address] 02/13/2026 10:40 AM EDTOffice Visit [facility] [address] [place] [address] Azul Almanza, PLASTER MECHANIC-CREOSOTING ENGINEER [address] [place] [address] documented as of this encounter Visit Diagnoses Not on filedocumented in this encounter Additional Health Concerns AssessmentNoted TimePHQ-9 Depression Total Score: 2:59 PM ESTA Body Mass Index follow-up plan has been documented for the bxpnkmc5812/11/2024 2:08 PM EDTdocumented as of this encounter Care Teams Team MemberRelationshipSpecialtyStart DateEnd Date Azul Almanza, PLASTER MECHANIC-CREOSOTING ENGINEER [address] [place] [address] PCP - GeneralFamily Medicine02/27/25documented as of this encounter
--- OUTSIDE RECORDS SUMMARY | 2025-08-24 12:43 | XMS_ITS | Encounter Summary ---
Author Organization [employer] tem Address [facility] [place]-[id number] [address] [place] [address] Care Team Providers Care Shrimp Pond Laborer Name Role Phone Azul Almanza COMMISSION BROKER-BOOK AUTHOR Primary Care Provider + Encounter Details DateTypeDepartmentCare Team (Latest Contact Info)Ighfhgjvyim88/17/2025Travel Social History Tobacco UseTypesPacks/DayYears UsedDateSmoking Tobacco: Every DayCigarettes0.535 Smokeless Tobacco: NeverAlcohol UseStandard Drinks/WeekCommentsNo0 (1 standard drink = 0.6 oz pure alcohol)Social Connection and Isolation PanelAnswerDate RecordedIn a typical week, how many times do you talk on the phone with family, friends, or neighbors?Once a week06/07/2021How often do you get together with friends or relatives?Once a week06/07/2021How often do you attend orthodoxy or anabaptism services?Never1Do you belong to any clubs or organizations such as orthodoxy groups, unions, fraternal or athletic groups, or school groups?No 06/07/2021How often do you attend meetings of the clubs or organizations you belong to?Never06/07/2021re you , , , , never , or living with a partner?Nemewkn6106/07/2021UDIT-CAnswerDate RecordedQ1: How often do you have a [...] care, and heating?Not hard at all03/27/2025PHQ-2AnswerDate RecordedTotal Dratw09510/13/2024 [facility] of Occupational Health - Occupational Stress Questionnaire [...] household?No03/27/2025hildcareAnswer Date RecordedDo problems getting child support agent make it difficult for you to work [...] the highest degree you have received?GED or eekwprvnuc00/11/2021CommentsNoSex and Gender InformationValueDate RecordedSex Assigned at DmzdzVumrum05/17/2022 8:42 AM ESTLegal SexFemale 04/03/2015 11:40 AM EDTGender QicrevueZwbmul26/17/2022 8:42 AM ESTSexual RyoesthrdsxIbjdfzso03/17/2022 8:42 AM ESTdocumented as of this encounter Plan of Treatment DateTypeDepartmentCare Team (Latest Contact Info)Oolnuzwoyjt63/16/2026 10:40 AM ESTOffice Visit [facility] [address] [place] [address] Patrice Tucker, COMMISSION BROKER-BOOK AUTHOR [address], [address] [address] 02/13/2026 10:40 AM EDTOffice Visit [facility] [address] [place] [address] Azul Almanza, COMMISSION BROKER-BOOK AUTHOR [address] [place] [address] documented as of this encounter Visit Diagnoses Not on filedocumented in this encounter Additional Health Concerns AssessmentNoted TimePHQ-9 Depression Total Score: 2:59 PM ESTA Body Mass Index follow-up plan has been documented for the izsiwrr4412/11/2024 2:08 PM EDTdocumented as of this encounter Care Teams Team MemberRelationshipSpecialtyStart DateEnd Date Azul Almanza, COMMISSION BROKER-BOOK AUTHOR [address] [place] [address] PCP - GeneralFamily Medicine02/27/25documented as of this encounter
--- OUTSIDE RECORDS SUMMARY | 2025-08-24 12:43 | XMS_ITS | Encounter Summary ---
Author Organization [facility] tem Address [facility] [place]-[id number] [address] [place] [address] Care Team Providers Care Radio Talk Show Host Name Role Phone Azul Almanza PLASTIC DUPLICATOR-CUTTER INSPECTOR Primary Care Provider + Encounter Details DateTypeDepartmentCare Team (Latest Contact Info)Vbtbswfgors34/23/2025Results Follow-Up [facility] [address] [place] [address] Steven Caraballo, DO [address] [place] [address] Echo stress treadmill W/contrast Social History Tobacco UseTypesPacks/DayYears UsedDateSmoking Tobacco: Every DayCigarettes0.535 Smokeless Tobacco: NeverAlcohol UseStandard Drinks/WeekCommentsNo0 (1 standard drink = 0.6 oz pure alcohol)Social Connection and Isolation PanelAnswerDate RecordedIn a typical week, how many times do you talk on the phone with family, friends, or neighbors?Once a week06/07/2021How often do you get together with friends or relatives?Once a week06/07/2021How often do you attend catholic or sikh services?Never1Do you belong to any clubs or organizations such as catholic groups, unions, fraternal or athletic groups, or school groups?No 06/07/2021How often do you attend meetings of the clubs or organizations you belong to?Never06/07/2021re you , , , , never , or living with a partner?Mllrvqy0506/07/2021UDIT-CAnswerDate RecordedQ1: How often do you have a [...] care, and heating?Not hard at all03/27/2025PHQ-2AnswerDate RecordedTotal Mnnge63910/13/2024 [facility] of Occupational Health - Occupational Stress Questionnaire [...] a household?No03/27/2025hildcareAnswer Date RecordedDo problems getting child & adolescent psychiatrist make it difficult for you to work or study?No06/07/2021mploymentAnswerDate RecordedDo you need help finding a local career center and/or a training program?06/07/2021Hunger ScreeningAnswerDate RecordedWithin the past 12 months we [...] the highest degree you have received?GED or cgxipxdpds84/11/2021CommentsNoSex and Gender InformationValueDate RecordedSex Assigned at QauqsGxbbkq51/17/2022 8:42 AM ESTLegal SexFemale 04/03/2015 11:40 AM EDTGender WvhalxzyAlfzid34/17/2022 8:42 AM ESTSexual DgwmarqrzgbHxfobrvx41/17/2022 8:42 AM ESTdocumented as of this encounter Plan of Treatment DateTypeDepartmentCare Team (Latest Contact Info)Swswzmnuibk11/16/2026 10:40 AM ESTOffice Visit [facility] [address] [facility] [place] [address] Patrice Tucker, PLASTIC DUPLICATOR-CUTTER INSPECTOR [address], [address] [address] 02/13/2026 10:40 AM EDTOffice Visit [facility] [address] [place] [address] Azul Almanza, PLASTIC DUPLICATOR-CUTTER INSPECTOR [address] [place] [address] documented as of this encounter Visit Diagnoses Not on filedocumented in this encounter Additional Health Concerns AssessmentNoted TimePHQ-9 Depression Total Score: 2:59 PM ESTA Body Mass Index follow-up plan has been documented for the dpddowq3412/11/2024 2:08 PM EDTdocumented as of this encounter Care Teams Team MemberRelationshipSpecialtyStart DateEnd Date Azul Almanza, PLASTIC DUPLICATOR-CUTTER INSPECTOR [address] [place] [address] [facility] - [facility]02/27/25documented as of this encounter
--- OUTSIDE RECORDS SUMMARY | 2025-08-24 12:43 | XMS_ITS | Clinical Summary ---
Author Organization [facility] Address [address] [place], [place] [address] Care Team Providers Care Motorcycle Riding Instructor Name Role Phone Unavailable Primary Care Provider Unavailabl e Social History Tobacco UseTypesPacks/DayYears UsedDateSmoking Tobacco: Never Assessed CommentsUnknownSex and Gender InformationValueDate RecordedSex Assigned at Not on fileLegal FqsYwqwqh65/02/2012 9:24 AM ESTGender IdentityNot on fileSexual OrientationNot on file Plan of Treatment Not on file
--- OUTSIDE RECORDS SUMMARY | 2025-08-24 12:43 | XMS_ITS | Encounter Summary ---
Author Organization [employer] tem Address [facility] [id number] [address] [place] [address] Care Team Providers Care Plastic Cnc Machine Operator Name Role Phone Azul Almanza OBGYN SPECIALIST-ENVIRONMENTAL SPECIALIST Primary Care Provider + Encounter Details DateTypeDepartmentCare Team (Latest Contact Info)Lxjagusxqmm39/18/2025Travel Social History Tobacco UseTypesPacks/DayYears UsedDateSmoking Tobacco: Every DayCigarettes0.535 Smokeless Tobacco: NeverAlcohol UseStandard Drinks/WeekCommentsNo0 (1 standard drink = 0.6 oz pure alcohol)Social Connection and Isolation PanelAnswerDate RecordedIn a typical week, how many times do you talk on the phone with family, friends, or neighbors?Once a week06/07/2021How often do you get together with friends or relatives?Once a week06/07/2021How often do you attend scientologist or episcopal services?Never1Do you belong to any clubs or organizations such as scientologist groups, unions, fraternal or athletic groups, or school groups?No 06/07/2021How often do you attend meetings of the clubs or organizations you belong to?Never06/07/2021re you , , , , never , or living with a partner?Hfoynth7906/07/2021UDIT-CAnswerDate RecordedQ1: How often do you have a [...] care, and heating?Not hard at all03/27/2025PHQ-2AnswerDate RecordedTotal Vgjcp01910/13/2024 [facility] [place] of Occupational Health - Occupational Stress Questionnaire [...] of a household?No03/27/2025hildcareAnswer Date RecordedDo problems getting exceptional children teacher make it difficult for you to work [...] the highest degree you have received?GED or llmruyeewm04/11/2021CommentsNoSex and Gender InformationValueDate RecordedSex Assigned at ZzswaUhxlqb56/17/2022 8:42 AM ESTLegal SexFemale 04/03/2015 11:40 AM EDTGender NlicdjiuWvapma45/17/2022 8:42 AM ESTSexual SfurqdkjcbbIbfhmvos92/17/2022 8:42 AM ESTdocumented as of this encounter Plan of Treatment DateTypeDepartmentCare Team (Latest Contact Info)Qtbxeuynsos31/16/2026 10:40 AM ESTOffice Visit [facility] [address] [place] [address] Patrice Tucker, OBGYN SPECIALIST-ENVIRONMENTAL SPECIALIST [address], [address] [address] 02/13/2026 10:40 AM EDTOffice Visit [facility] [address] [place] [address] Azul Almanza, OBGYN SPECIALIST-ENVIRONMENTAL SPECIALIST [address] [place] [address] documented as of this encounter Visit Diagnoses Not on filedocumented in this encounter Additional Health Concerns AssessmentNoted TimePHQ-9 Depression Total Score: 2:59 PM ESTA Body Mass Index follow-up plan has been documented for the zxwolgc7912/11/2024 2:08 PM EDTdocumented as of this encounter Care Teams Team MemberRelationshipSpecialtyStart DateEnd Date Azul Almanza, OBGYN SPECIALIST-ENVIRONMENTAL SPECIALIST [address] [place] [address] PCP - GeneralFamily Medicine02/27/25documented as of this encounter
--- OUTSIDE RECORDS SUMMARY | 2025-08-24 12:43 | XMS_ITS | Encounter Summary ---
Author Organization [employer] tem Address [facility] [id number] [address] [place] [address] Care Team Providers Care Power Cleaner Operator Name Role Phone Azul Almanza CD TECHNICIAN-TRANSMITTER ENGINEER Primary Care Provider + Encounter Details DateTypeDepartmentCare Team (Latest Contact Info)Tgmitroawah73/15/2025Travel Social History Tobacco UseTypesPacks/DayYears UsedDateSmoking Tobacco: Every DayCigarettes0.535 Smokeless Tobacco: NeverAlcohol UseStandard Drinks/WeekCommentsNo0 (1 standard drink = 0.6 oz pure alcohol)Social Connection and Isolation PanelAnswerDate RecordedIn a typical week, how many times do you talk on the phone with family, friends, or neighbors?Once a week06/07/2021How often do you get together with friends or relatives?Once a week06/07/2021How often do you attend jehovah's witness or faith services?Never1Do you belong to any clubs or organizations such as jehovah's witness groups, unions, fraternal or athletic groups, or school groups?No 06/07/2021How often do you attend meetings of the clubs or organizations you belong to?Never06/07/2021re you , , , , never , or living with a partner?Rsuqaen3406/07/2021UDIT-CAnswerDate RecordedQ1: How often do you have a [...] care, and heating?Not hard at all03/27/2025PHQ-2AnswerDate RecordedTotal Uppsx07810/13/2024 [facility] of Occupational Health - Occupational Stress Questionnaire [...] of a household?No03/27/2025hildcareAnswer Date RecordedDo problems getting director child make it difficult for you to work [...] the highest degree you have received?GED or fbzszungae24/11/2021CommentsNoSex and Gender InformationValueDate RecordedSex Assigned at EmgfiQqvlft38/17/2022 8:42 AM ESTLegal SexFemale 04/03/2015 11:40 AM EDTGender UczorgryVduhvj63/17/2022 8:42 AM ESTSexual BzenpgxnsukYbstgwyj14/17/2022 8:42 AM ESTdocumented as of this encounter Plan of Treatment DateTypeDepartmentCare Team (Latest Contact Info)Bthowpkfohn35/16/2026 10:40 AM ESTOffice Visit [facility] [address] [place] [address] Patrice Tucker, CD TECHNICIAN-TRANSMITTER ENGINEER [address], [address] [address] 02/13/2026 10:40 AM EDTOffice Visit [facility] [address] [place] [address] Azul Almanza, CD TECHNICIAN-TRANSMITTER ENGINEER [address] [place] [address] documented as of this encounter Visit Diagnoses Not on filedocumented in this encounter Additional Health Concerns AssessmentNoted TimePHQ-9 Depression Total Score: 2:59 PM ESTA Body Mass Index follow-up plan has been documented for the tzaayno7412/11/2024 2:08 PM EDTdocumented as of this encounter Care Teams Team MemberRelationshipSpecialtyStart DateEnd Date Azul Almanza, CD TECHNICIAN-TRANSMITTER ENGINEER [address] [place] [address] PCP - GeneralFamily Medicine02/27/25documented as of this encounter
--- OUTSIDE RECORDS SUMMARY | 2025-08-24 12:43 | XMS_ITS | Clinical Summary ---
Author Organization [address] tem Address [id number] [address] [place] [address] Care Team Providers Care Health Social Work Professor Name Role Phone Azul Almanza YARN HANDLER-STAFF RESPIRATORY THERAPIST Primary Care Provider + Allergies No known active allergies Medications MedicationSigDispense QuantityRefillsLast FilledStart DateEnd DateStatus albuterol (PROVENTIL HFA;VENTOLIN HFA) 90 mcg/actuation inhaler 5Active atorvastatin (LIPITOR) 10 mg tablet Take 1 tablet (10 mg total) by mouth in the morning. 90 tablet 5Active celecoxib (CeleBREX) 100 mg capsule Take 1 capsule (100 mg total) by mouth 2 (two) times a day as needed for pain. 60 capsule 5Active traZODone (DESYREL) 50 mg tablet Take 1 tablet (50 mg total) by mouth nightly. 30 tablet 5Active lisinopriL (PRINIVIL,ZESTRIL) 20 mg tablet Take 1 tablet (20 mg total) by mouth in the morning. 30 tablet 5Active levothyroxine (SYNTHROID, LEVOTHROID) 100 MCG tablet Take 1 tablet (100 mcg total) by mouth in the morning. 30 tablet 5Active venlafaxine XR (EFFEXOR XR) 75 mg 24 hr capsule Indications:Major depressive disorder with single episode, in partial remission Take 1 capsule (75 mg total) by mouth in the morning. 90 capsule 5Active venlafaxine XR (EFFEXOR-XR) 150 mg 24 hr capsule Indications:Major depressive disorder with single episode, in partial remission take 1 capsule by mouth daily ALONG WITH 150 MG FOR A TOTAL DOSE OF 225 MG Strength: 150 mg 90 capsule 5Active amLODIPine (NORVASC) 5 mg tablet Indications:Essential hypertensionTake 1 tablet (5 mg total) by mouth in the evening. 30 tablet 5Active bisoprolol (ZEBETA) 10 mg tablet Indications:Essential hypertensionTake 1 tablet (10 mg total) by mouth in the evening.5Active aspirin 81 mg Indications:PVD (peripheral vascular disease)Take 1 tablet (81 mg total) by mouth in the morning. 90 tablet 5Active cilostazoL (PLETAL) 50 mg tablet Indications:PVD (peripheral vascular disease)Take 1 tablet (50 mg total) by mouth in the morning and 1 tablet (50 mg total) before bedtime. 60 tablet 5Active venlafaxine XR (EFFEXOR-XR) 150 mg 24 hr capsule Indications:Major depressive disorder with single episode, in partial remission take 1 capsule by mouth daily ALONG WITH 150 MG FOR A TOTAL DOSE OF 225 MG Strength: 150 mg 90 capsule Discontinued(Reorder) bisoprolol (ZEBETA) 10 mg tablet Indications:Essential hypertensionTake 1 tablet (10 mg total) by mouth in the morning. 90 tablet Discontinued nitrofurantoin, macrocrystal-monohydrate, (MACROBID) 100 mg capsule Indications:Acute cystitis with hematuriaTake 1 capsule (100 mg total) by mouth in the morning and 1 capsule (100 mg total) before bedtime. Do all this for 5 days. 10 capsule Expired Active Problems ProblemNoted DateDiagnosed DatePVD (peripheral vascular disease)08/20/2025 Current moderate episode of major depressive disorder, unspecified whether uhutyatiw99/19/2755Sbmbakrsyimm39/06/2020Fibromyalgia affecting multiple sites 02/05/2020Asymptomatic nrdytzwwf83/09/2020Iron deficiency anemia, unspecified 02/05/2019Vitamin B12 hnefqlcmqy92/01/2019Mixed rumzfxkliqqnao88/01/2019Hx of decompressive lumbar opkgevydmqe09/27/2018 Overview (08/24/2018): L4, L5, S1 Vitamin D xtabgipdfg83/14/2018Medicare annual wellness visit, subsequent 10/16/20174381Owrbitxsfihtpf50/15/2018Osteopenia of multiple sites10/13/2017 Screening for malignant neoplasm of nadrqu8310/13/20178477Pfdosfqncrupks94/15/2018 Chronic bilateral low back pain with khhkdunw32/21/2018 Overview (09/18/2017): Left sided sciatica Arthritis of multiple sites09/15/2017Major depressive disorder in partial remissionAnxietyHypertensionFibromyalgia, primaryIBS (irritable bowel syndrome) GERD (gastroesophageal reflux disease) Resolved Problems ProblemNoted DateDiagnosed DateResolved DateNumbness and tingling of lower ogyvzaens74Impacted cerumen of both ears Blood tests for routine general physical eavqzswmgfk95Need for prophylactic vaccination and inoculation against xunybgiaz66 Qfndmmb092Rectal almlpvyq89 Encounters DateTypeDepartmentCare AmheDfjhtxxmjmg33/23/2025 10:35 AM EST - 08/20/2025 11:59 PM ESTHospital Encounter [facility] [address] [place] [address] Steven Caraballo DO Chest pain, unspecified type Discharge Disposition: Home08/20/2025 9:38 AM EST - 08/20/2025 10:34 AM EST Hospital Encounter [facility] [address] [place] [address] Steven Caraballo DO PVD (peripheral vascular disease) Discharge Disposition: Home08/20/2025 9:38 AM EST - 08/20/2025 10:34 AM EST Hospital Encounter [facility] [address] [place] [address] Steven Caraballo, DO PVD (peripheral vascular disease) Discharge Disposition: Home08/20/2025Results Follow-Up [facility] [address] [place] [address] Steven Caraballo, DO Echo stress treadmill W//23/2025Results Follow-Up [facility] [address] [place] [address] Steven Caraballo, DO Vas art doppler lwr limited single, Vas AAA Chvzdxhva27/22/3821Ffovzd15/21/2025 Gbtenh7508/15/20257529Sdqqve62/17/3292Bpjgpe40/15/2025 2:45 PM ESTOffice Visit [facility] [address] [place] [address] Steven Caraballo, Essential hypertension (Primary Dx); PVD (peripheral vascular disease); Chest pain, unspecified type08/12/2025Telephone [facility] - Family Medicine [address] [place] [address] Luz Elena Anderson, [facility] 08/12/20255493Uwvtda81/04/2025Telephone [facility] [address] [place] [address] Kosta Yusuf, [facility] 07/31/2025 9:52 AM EST - 07/31/2025 11:59 PM ESTHospital Encounter [facility] - [facility] Imaging [address] [place] [id number] Smoker Discharge Disposition: Home07/31/2025 9:38 AM EST - 07/31/2025 9:51 AM EST Hospital Encounter [facility] - Mammography/DEXA Imaging [address] [place] [address] Encounter for screening mammogram for malignant neoplasm of breast Discharge Disposition: Home07/30/20250690Uwayyi41/01/2025[facility] - Family Medicine [address] [place] [address] Kosta Yusuf, AGENCY OPERATOR Major depressive disorder with single episode, in partial /25/2025 2:25 PM ESTClinical Support [facility] [address] [place] [address] Patrice Tucker, YARN HANDLER-STAFF RESPIRATORY THERAPIST Acute cystitis with hematuria (Primary Dx); Urinary yfgtgswqa87/25/2025[facility]phone [facility] [address] [place] [address] Kosta Yusuf, [facility] 07/22/2025 1:30 PM ESTOffice Visit [facility] [address] [place] [address] Patrice Tucker, YARN HANDLER-STAFF RESPIRATORY THERAPIST Primary hypertension (Primary Dx); Urinary frequency; Essential hypertension; Smoker; Qezthxftbnf35/24/4718Muszbr63/19/9410Ioxhea43/18/2025Refill [facility] [address] [place] [address] Luz Elena Anderson CMA Major depressive disorder with single episode, in partial jiqmnyvfw45/10/2025 [facility] [address] [place] [address] Azul Almanza, YARN HANDLER-STAFF RESPIRATORY THERAPIST Thyroid profile includes TSH FT4109/07/2024Orders Only [facility] [address] [place] [address] Azul Almanza YARN HANDLER-STAFF RESPIRATORY THERAPIST 07/05/2025 10:20 AM ESTOffice Visit [facility] [address] [place] [address] Azul Almanza, YARN HANDLER-STAFF RESPIRATORY THERAPIST Fibromyalgia affecting multiple sites (Primary Dx); Acquired hypothyroidism; Smoker; Chronic right-sided low back pain without sciatica; Essential fzubjpjaqjvf10/06/9022Jxtrcn43/20/2025Refill [facility] - [facility] Medicine [address] [place] [address] Luz Elena Anderson CMA Essential hypertensionfrom Last 3 Months Immunizations ImmunizationAdministration DatesNext DueInfluenza, Injectable, quadrivalent (PF) 05/11/2019,09/15/2017Influenza, Nvvledsedur80/13/2019 Family History Medical HistoryRelationNameCommentsHeart diseaseBrother 1Heart diseaseBrother 2 DiabetesBrother 3DiabetesFatherHeart diseaseFatherBreast cancerMaternal Aunt DottyBreast cancerMaternal GrandmotherGramBil Breast CancerNieceBreast cancer NieceCancerSister 1RelationNameStatusCommentsBrother 1AliveBrother 2AliveBrother 3AliveFatherDeceased (Age 89)Maternal AuntDottyMaternal GrandmotherGramMother (Age 77)NieceDeceasedSister 1Deceased (Age 57)Sister 2AliveSister 3 Alive Social History Tobacco UseTypesPacks/DayYears UsedDateSmoking Tobacco: Every [...] relatives?Once a week06/07/2021How often do you attend episcopal or protestant services?Never1Do you belong to any clubs or organizations such as episcopal groups, unions, fraternal or athletic groups, or school groups?No 06/07/2021How often do you attend meetings of the clubs or organizations you belong to?Never06/07/2021re you , , , , never , or living with a partner?Hrxrnss4606/07/2021UDIT-CAnswerDate RecordedQ1: How often do you have a [...] care, and heating?Not hard at all03/27/2025PHQ-2AnswerDate RecordedTotal Ifaar51710/13/2024 [facility] of Occupational Health - Occupational Stress Questionnaire [...] of a household?No03/27/2025hildcareAnswer Date RecordedDo problems getting registered nurse maternal child make it difficult for you to [...] the highest degree you have received?GED or ufucobonae69/11/2021CommentsNoSex and Gender InformationValueDate RecordedSex Assigned at IyfbvGktijd79/17/2022 8:42 AM ESTLegal SexFemale 04/03/2015 11:40 AM EDTGender WlmtykxjQkukjt15/17/2022 8:42 AM ESTSexual TafgrbqqimmDmeqspnq13/17/2022 8:42 AM EST Last Filed Vital Signs Vital SignReadingTime TakenCommentsBlood Sheqacqy353/9208/12/2025 3:19 PM EST Nntrb431008/12/2025 2:59 PM QXNJsbmbdgvoxs03.5 ??C (97.7 ??F)08/12/2025 2:59 PM ESTRespiratory Qzye5611 1:27 PM ESTOxygen Aeiyjvighq36%08/12/2025 2:59 PM ESTInhaled Oxygen Concentration--Yznirb79.9 kg (116 lb 9.6 oz)08/12/2025 2:59 PM LMUXxdmpw987.6 cm (5' 4 )08/12/2025 2:59 PM ESTBody Mass Index20.01110/13/2024 2:59 PM EST Plan of Treatment DateTypeDepartmentCare Team (Latest Contact Info)Sfaejebltoi63/16/2026 10:40 AM ESTOffice Visit [facility] - [facility] [address] [place] [address] Patrice Tucker, YARN HANDLER-STAFF RESPIRATORY THERAPIST [address] [place], [place] [id number] 02/13/2026 10:40 AM EDTOffice Visit [facility] [address] [place] [address] Azul Almanza, YARN HANDLER-STAFF RESPIRATORY THERAPIST [address] [place] [address] Health MaintenanceDue DateLast DoneCommentsTobacco Cxxjedxbrw1957Zoster (Shingles) Vaccine (1 of 2)2007Medicare Annual Wellness Visit05/08/2025 05/08/2024, 03/17/2023, 02/08/2022, Additional history ljsagcZamvssqie81/03/2026 07/31/2025, 05/23/2024, 10/06/2022, Additional history existsAdult BMI Screening Depression Akttbgwzs17Fall Risk Screening Tobacco Bkifscsie52olonoscopy09/19/2027 09/19/2017, 04/06/2007RSV ( or age 60+ yrs) (1 - 1-dose 75+ series) 2DTaP,Tdap and Td VaccinesDiscontinued Medical Devices Not on file Procedures Procedure NamePriorityDate/TimeAssociated DiagnosisCommentsECHO STRESS TREADMILL WITH WRLPSUPRUtsqfnm12/23/2025 11:21 AM EST Chest pain, unspecified type VASC AAA WQRKZJMSYBfnjjlb87/23/2025 10:27 AM EST PVD (peripheral vascular disease) VASC ARTERIAL DOPPLER LOWER LIMITED SINGLE (KAILEE)Mhptfzq6508/20/2025 10:26 AM EST PVD (peripheral vascular disease) POCT ONHXyzhdkq86/15/2025 3:31 PM EST Essential hypertension CT LOW DOSE LUNG ZRDGMGLUAXoqxbra14/03/2025 10:22 AM EST Smoker MAMM SCREENING BILATERAL W XTBUmiwjws23/03/2025 9:55 AM EST Encounter for screening mammogram for malignant neoplasm of breast POCT URINALYSIS DIPSTICK GBXGNhmxzji25/25/2025 2:57 PM EST Urinary frequency THYROID PROFILE INCLUDES TSH OW7Hbzrgzu20/07/2025 11:40 AM EST Acquired hypothyroidism CVDPCZZXDVA04/22/2018 8:53 AM EST from Last 3 Months or Most Recently Relevant to Health Maintenance Results * Echo stress treadmill W/contrast (08/20/2025 11:21 AM EST)ComponentValueRef RangeTest MethodAnalysis TimePerformed AtPathologist SignatureTarget MZ770qyl XCELERAIECGExercise duration (min)2minXCELERAIECGExercise duration (sec)30sec SBPNIVEKNCIUG944isbSQKDUQLUCNQFwbaci peak QL514wweGLIRLTABZVKVyjnrddy Systolic BV682wzRkSISLGJOOPXVMjtcqbimm TQ79roDwIQXASBURFHNHngjyt peak systolic BP159 mmHgXCELERAIECGDiastolic EV649qsAaYDKMSWXBVHRWK784kwhYDTBVBPFOOYOivxml recovery systolic TC382xwVlPOYIYLXBZNHNkuinsqzj WQ08ksKqMKKQBBUNCELUhzmcqs HR 105%XCELERAIECGAortic root3.80cmXCELERAIECGMax MM of ST Depression0.0 XCELERAIECGAngina Xauqk2AGLNYEUHLDZLokf Score2.50XCELERAIECGAnatomical Region LateralityModalityChestN/AUltrasound, OtherSpecimen (Source)Anatomical Location / [...] StatusSteven Caraballo DOCV STRESS ORDERABLES Final Result * Vas AAA Screening (08/20/2025 10:27 AM [...] diameter is: 2.0 cm Authorizing ProviderResult TypeResult StatusSteven Caraballo DOCV VASCULAR ORDERABLESFinal Result * Vas [...] TypeResult StatusJotammi Caraballo DOCV VASCULAR ORDERABLESFinal Result * CT low dose lung screening (Annual) (07/31/2025 10:22 AM EST)Anatomical Region LateralityModalityBody, Lung, Chest, Body CoveraComputed TomographySpecimen (Source)Anatomical Location / LateralityCollection Method / VolumeCollection TimeReceived Time08/01/2025 9:36 AM EST Narrative 08/01/2025 9:38 AM EST CLINICAL INFORMATION: Screening visit: Personal history of tobacco use/personal history of nicotine dependence. Lung cancer screening. ?? The patient has a 53 pack-year history of smoking. The patient is a Current smoker. COMPARISON: 07/25/2024 TECHNIQUE: Low dose CT chest performed without contrast with coronal and sagittal and maximum intensity projection reconstructed images. Maximum intensity projection images generated to increase the sensitivityof pulmonary nodule detection. Automated exposure control was utilized. All CT scans at this facility use dose modulation, iterative reconstruction, and/or weight based dosing when appropriate to reduce radiation dose to as low as reasonably achievable. Computer aided detection for pulmonary nodules was performed utilizing Jammit software. FINDINGS: Diagnostic quality: Satisfactory Lung nodules: None Lungs and pleural spaces: Emphysema Heart and mediastinum:Unremarkable Heart size: Normal Coronary calcification: Moderate Pericardial effusion: None Other findings: None significant IMPRESSION: Lung Rads Category: 1- Negative Recommendation: CT Low Dose Lung Screening 1 year Finalized by Marco Paul MD on 08/01/2025 9:38 AM Procedure Note Marco Paul MD - 08/01/2025 CLINICAL INFORMATION: Screening visit: Personal history of tobacco use/personal history ofnicotine dependence. Lung cancer screening. The patient has a 53 pack-year history of smoking. The patient is a Current smoker. COMPARISON: 07/25/2024 TECHNIQUE: Low dose CT chest performed without contrast with coronal and sagittal and maximum intensity projection reconstructed images. Maximum intensityprojection images generated to increase the sensitivity of pulmonarynodule detection. Automated exposure control was utilized. All CT scans at this facility use dose modulation, iterativereconstruction, and/or weight based dosing when appropriate to reduceradiation dose to as low as reasonably achievable. Computer aideddetection for pulmonary nodules was performed utilizing Streaming Era. FINDINGS: Diagnostic quality: Satisfactory Lung nodules: None Lungs and pleural spaces: Emphysema Heart and mediastinum:Unremarkable Heart size: Normal Coronary calcification: Moderate Pericardial effusion: None Other findings: None significant IMPRESSION: Lung Rads Category: 1- Negative Recommendation: CT Low Dose Lung Screening 1 year Finalized by Marco Paul MD on 08/01/2025 9:38 AM Authorizing ProviderResult TypeResult Statusmelva Almanza YARN HANDLER-CNPIMG CT ORDERABLESFinal Result * Mammography screening bilateral with CAD (07/31/2025 9:55 AM EST)Anatomical RegionLateralityModalityBreastBilateralMammographySpecimen (Source)Anatomical Location / LateralityCollection Method / VolumeCollection TimeReceived Time 07/31/2025 1:59 PM EST Narrative 07/31/2025 2:01 PM EST FUNMILAYO OCAMPO 1955 [id number] EXAM: MAMM SCREENING BILATERAL W CAD, 07/31/2025 9:38 AM CLINICAL INDICATIONS: Screening, Encounter for screening mammogram for malignant neoplasm of breast COMPARISON: 05/23/2024 TECHNIQUE: Bilateral digital tomosynthesis MLO and CC views of the breasts were obtained, with creation of synthetic 2D views. Computer aided detection was utilized. FINDINGS: The breasts are extremely dense, which lowers the sensitivity of mammography. There are no suspicious masses, calcifications, or areas of architectural distortion. IMPRESSION: No mammographic evidence of malignancy. BI-RADS: BI-RADS 1 - Negative RECOMMENDATION: ??Routine screening mammogram in 1 year. RISK ASSESSMENT: TC Lifetime risk: 6.7%. The patient's reported personal and family medical history was used calculate their Tyrer-Cuzick lifetime risk of malignancy. Scores less than 20% are not considered high risk per ACR guidelines and patient should continue with the above recommendation. Additionally, this patient's reported personal and/or family history of cancer indicates they may benefit from a genetic counseling consultation and possible genetic testing. ??If patient has not already completed this evaluation, please consider placing a referral to [facility] Gen[facility] via [facility] or . ??For questions regarding this, please call [phone]. The patient was offered information on genetic counseling at the time of exam. Finalized by Sanchez Calderon MD on 07/31/2025 2:01 PM 1 d MAMM 1 YR FDA Accredited Performing Facility: [facility] - Mammography/DEXA Imaging [address] [facility] [address] Procedure Note Sanchez Calderon MD - 07/31/2025 FUNMILAYO OCAMPO 1955 [id number] EXAM: MAMM SCREENING BILATERAL W CAD, 07/31/2025 9:38 AM CLINICAL INDICATIONS: Screening, Encounter for screening mammogram formalignant neoplasm of breast COMPARISON: 05/23/2024 TECHNIQUE: Bilateral digital tomosynthesis MLO and CC views of the breastswere obtained, with creation of synthetic 2D views. Computer aideddetection was utilized. FINDINGS: The breasts are extremely dense, which lowers the sensitivity ofmammography. There are no suspicious masses, calcifications, or areas of architectural distortion. IMPRESSION: No mammographic evidence of malignancy. BI-RADS: BI-RADS 1 - Negative RECOMMENDATION: Routine screening mammogram in 1 year. RISK ASSESSMENT: TC Lifetime risk: 6.7%. The patient's reported personal and family medical history was usedcalculate their Tyrer-Cuzick lifetime risk of malignancy. Scores less than20% are not considered high risk per ACR guidelines and patient shouldcontinue with the above recommendation. Additionally, this patient's reported personal and/or family history ofcancer indicates they may benefit from a genetic counseling consultationand possible genetic testing. If patient has not already completed thisevaluation, please [facility] via [facility] or . For questions regarding this,please call [phone]. The patient was offered information on geneticcounseling at the time of exam. Finalized by Sanchez Calderon MD on 07/31/2025 2:01 PM 1 d MAMM 1 YR FDA Accredited Performing Facility: [facility] - Mammography/DEXA Imaging [address] [facility] [address] Authorizing ProviderResult TypeResult StatusBrmelva Almanza YARN HANDLER-CNPG MAMMOGRAPHY ORDERABLESFinal Result * POCT urinalysis dipstick only (07/23/2025 2:57 PM EST)ComponentValueRef Range Test MethodAnalysis TimePerformed AtPathologist SignatureExternal Poct Urine ColoryellowMANUALLY TRANSCRIBED RESULTSExternal Poct Urine GlucoseNegative MANUALLY TRANSCRIBED RESULTSExternal Poct Urine BilirubinNegativeMANUALLY TRANSCRIBED RESULTSExternal Poct Urine KetonesNegativeMANUALLY TRANSCRIBED RESULTSExternal Poct Urine Specific Gravity1.010MANUALLY TRANSCRIBED RESULTS External Poct Urine BloodTraceMANUALLY TRANSCRIBED RESULTSExternal Poct Urine Ph6.0MANUALLY TRANSCRIBED RESULTSExternal Poct Urine ProteinNegativeMANUALLY TRANSCRIBED RESULTSExternal Poct Urine Urobilinogen0.2MANUALLY TRANSCRIBED RESULTSExternal Poct Urine NitriteNegativeMANUALLY TRANSCRIBED RESULTSExternal Poct Urine Leukocyte EsteraseLargeMANUALLY TRANSCRIBED RESULTSSpecimen (Source)Anatomical Location / LateralityCollection Method / VolumeCollection TimeReceived OyhgXlixi22/25/2025 2:57 PM EST Narrative Authorizing ProviderResult TypeResult StatusPatrice Tucker YARN HANDLER-CNPPOINT OF CARE TEST ORDERABLESFinal ResultPerforming OrganizationAddressCity/State/ZIP Code Phone Number MANUALLY TRANSCRIBED RESULTS * (ABNORMAL) Thyroid profile includes TSH FT4 (07/05/2025 11:40 AM EST)Component ValueRef RangeTest MethodAnalysis TimePerformed AtPathologist SignatureFREE T4 0.850.61 - 1.60 ng/dL07/05/2025 6:52 PM [facility] TSH7.70(H)0.49 - 4.67 uIU/mL07/05/2025 6:52 PM [facility] LABORATORYSpecimen (Source)Anatomical Location / LateralityCollection Method / VolumeCollection TimeReceived TimeBloodVenous blood / Suptwot2207/05/2025 11:40 AM EST07/05/2025 11:40 AM EST Narrative Authorizing ProviderResult TypeResult StatusAzul Almanza YARN HANDLER-CNPLAB BLOOD ORDERABLESFinal ResultPerforming OrganizationAddressCity/State/ZIP CodePhone Number [facility] [address] [place] [address], * Colonoscopy (09/19/2017 8:53 AM EST)Specimen (Source)Anatomical Location / LateralityCollection Method / VolumeCollection TimeReceived Time09/19/2017 8:53 AM EST Narrative PM CARDIOVASCULAR - 09/19/2017 9:33 AM [facility] Patient Name: Funmilayo Ocampo ?? Procedure Date No Time: 09/19/2017 ?? Date of : 1955 Admit Type: Outpatient Age: 62 Room: [facility] OR Gender: Female Note Status: Finalized Attending MD: Mayur Walter DO Procedure: ? Colonoscopy Indications: ? Rectal bleeding Providers: ? Mayur Walter DO Referring MD: ?Mayur Walter DO Medicines: ? Propofol per Anesthesia Complications: ? No immediate complications. Procedure: ? After I obtained informed consent, the scope was passed ? under direct vision. Throughout the procedure, the ? patient's blood pressure, pulse, and oxygen saturations ? were monitored continuously. The Olympus CF-DM655T ? #[id number] adult colonoscope was introduced through the ? anus and advanced to the cecum, identified by ? appendiceal orifice and ileocecal valve. The colonoscopy ? was performed with moderate difficulty due to a tortuous ? colon. Successful completion of the procedure was aided ? by applying abdominal pressure. The patient tolerated ? the procedure well. Findings: ? The perianal and digital rectal examinations were normal. ? A 5 mm polyp was found in the recto-sigmoid colon. The polyp was ? sessile. The polyp was removed with a cold snare. Resection and ? retrieval were complete. ? Multiple small and large-mouthed diverticula were found in the sigmoid ? colon and descending colon. ? The exam was otherwise without abnormality on direct and retroflexion ? views. Impression: ?- One 5 mm polyp at the recto-sigmoid colon, removed ? with a cold snare. Resected and retrieved. ? - Diverticulosis in the sigmoid colon and in the ? descending colon. ? - The examination was otherwise normal on direct and ? retroflexion views. Recommendation: ?- Discharge patient to home. ? - High fiber diet for the rest of the patient's life. Procedure Code(s): ?? --- Professional --- ? 55291, Colonoscopy, flexible; with removal of tumor(s), ? polyp(s), or other lesion(s) by snare technique Diagnosis Code(s): ? --- Professional --- ? D12.7, Benign neoplasm of rectosigmoid junction ? K62.5, Hemorrhage of anus and rectum ? K57.30, Diverticulosis of large intestine without perforation or abscess ? without bleeding CPT copyright 2016 [employer]. All rights reserved. The codes documented in this report are preliminary and upon professional soccer player review may be revised to meet current compliance requirements. DO Mayur Chauhan DO 09/19/2017 9:33:29 AM Number of Addenda: 0 Note Initiated On: 09/19/2017 8:53 AM Procedure Note Mayur Walter DO - 09/19/2017 [facility] Patient Name: Funmilayo Ocampo Procedure Date No Time: 09/19/2017 Date of : 1955 Admit Type: Outpatient Age: 62 Room: [place] [address] Gender: Female Note Status: Finalized Attending MD: Mayur Walter DO Procedure: Colonoscopy Indications: Rectal bleeding Providers: Mayur Walter DO Referring MD: Mayur Walter DO Medicines: Propofol per Anesthesia Complications: No immediate complications. Procedure: After I obtained informed consent, the scope waspassed under direct vision. Throughout the procedure, the patient's blood pressure, pulse, and oxygensaturations were monitored continuously. The Olympus [id number] #[id number] adult colonoscope was introduced through the anus and advanced to the cecum, identified by appendiceal orifice and ileocecal valve. Thecolonoscopy was performed with moderate difficulty due to atortuous colon. Successful completion of the procedure wasaided by applying abdominal pressure. The patient tolerated the procedure well. Findings: The perianal and digital rectal examinations were normal. A 5 mm polyp was found in the recto-sigmoid colon. The polyp was sessile. The polyp was removed with a cold snare. Resection and retrieval were complete. Multiple small and large-mouthed diverticula were found in thesigmoid colon and descending colon. The exam was otherwise without abnormality on direct and retroflexion views. Impression: - One 5 mm polyp at the recto-sigmoid colon, removed with a cold snare. Resected and retrieved. - Diverticulosis in the sigmoid colon and in the descending colon. - The examination was otherwise normal on direct and retroflexion views. Recommendation: - Discharge patient to home. - High fiber diet for the rest of the patient'slife. Procedure Code(s): --- Professional --- 28662, Colonoscopy, flexible; with removal oftumor(s), polyp(s), or other lesion(s) by snare technique Diagnosis Code(s): --- Professional --- D12.7, Benign neoplasm of rectosigmoid junction K62.5, Hemorrhage of anus and rectum K57.30, Diverticulosis of large intestine without perforation orabscess without bleeding CPT copyright 2016 [employer]. All rights reserved. The codes documented in this report are preliminary and upon professional soccer player reviewmay be revised to meet current compliance requirements. DO Mayur Chauhan DO 09/19/2017 9:33:29 AM Number of Addenda: 0 Note Initiated On: 09/19/2017 8:53 AM Authorizing ProviderResult TypeResult StatusMicammy HONG PROCEDURE ORDERABLESFinal ResultPerforming OrganizationAddressCity/State/ZIP CodePhone Number PM CARDIOVASCULAR from Last 3 Months or Most Recently Relevant to Health Maintenance Insurance Advance Directives TypeDate RecordedPatient RepresentativeExplanationAdvance Directive10/06/2017 9:36 AMABN 10/06/17 Care Teams Team MemberRelationshipSpecialtyStart DateEnd Date Azul Almanza, YARN HANDLER-STAFF RESPIRATORY THERAPIST [address] [place] [address] PCP - Generalmily Medicine02/27/25
--- OUTSIDE RECORDS SUMMARY | 2025-08-24 12:43 | XMS_ITS | Encounter Summary ---
Author Organization [facility] tem Address [id number] [address] [place] [address] Care Team Providers Care Streetcar Repairer Helper Name Role Phone Azul Almanza RENAL SOCIAL WORKER-TIE BUCKER Primary Care Provider + Encounter Details DateTypeDepartmentCare Team (Latest Contact Info)Imamwyfcwbc51/23/2025Results Follow-Up [facility] [address] [place] [address] Steven Caraballo, DO [address] [place] [address] Vas art doppler lwr limited single, Vas AAA Screening Social History Tobacco UseTypesPacks/DayYears UsedDateSmoking Tobacco: Every DayCigarettes0.535 Smokeless Tobacco: NeverAlcohol UseStandard Drinks/WeekCommentsNo0 (1 standard drink = 0.6 oz pure alcohol)Social Connection and Isolation PanelAnswerDate RecordedIn a typical week, how many times do you talk on the phone with family, friends, or neighbors?Once a week06/07/2021How often do you get together with friends or relatives?Once a week06/07/2021How often do you attend pentecostalism or pentecostalism services?Never1Do you belong to any clubs or organizations such as pentecostalism groups, unions, fraternal or athletic groups, or school groups?No 06/07/2021How often do you attend meetings of the clubs or organizations you belong to?Never06/07/2021re you , , , , never , or living with a partner?Keisuzg9606/07/2021UDIT-CAnswerDate RecordedQ1: How often do you have a [...] care, and heating?Not hard at all03/27/2025PHQ-2AnswerDate RecordedTotal Mhpbg98110/13/2024 [facility] [place] of Occupational Health - Occupational Stress Questionnaire [...] of a household?No03/27/2025hildcareAnswer Date RecordedDo problems getting early childhood education instructor make it difficult for you to work or study?No06/07/2021mploymentAnswerDate RecordedDo you need help finding a local career center and/or a training program?No10/10/2021Hunger ScreeningAnswerDate RecordedWithin the past 12 months we [...] the highest degree you have received?GED or yjyzsicdbj31/11/2021CommentsNoSex and Gender InformationValueDate RecordedSex Assigned at XmqibGzgcvj26/17/2022 8:42 AM ESTLegal SexFemale 04/03/2015 11:40 AM EDTGender BcoljphpNdacxr70/17/2022 8:42 AM ESTSexual MltfaahkzugNwerooti04/17/2022 8:42 AM ESTdocumented as of this encounter Plan of Treatment DateTypeDepartmentCare Team (Latest Contact Info)Agmlqcaxnie87/16/2026 10:40 AM ESTOffice Visit [facility] [address] [facility] [place] [phone] Patrice Tucker, RENAL SOCIAL WORKER-TIE BUCKER [address], [address] [address] 02/13/2026 10:40 AM EDTOffice Visit [facility] [address] [place] [address] Azul Almanza, RENAL SOCIAL WORKER-TIE BUCKER [address] [facility] [place] [address] documented as of this encounter Visit Diagnoses Diagnosis PVD (peripheral vascular disease)- Primary Unspecified peripheral vascular disease documented in this encounter Additional Health Concerns AssessmentNoted TimePHQ-9 Depression Total Score: 2:59 PM ESTA Body Mass Index follow-up plan has been documented for the lvljwxz1612/11/2024 2:08 PM EDTdocumented as of this encounter Care Teams Team MemberRelationshipSpecialtyStart DateEnd Date Azul Almanza, RENAL SOCIAL WORKER-TIE BUCKER [address] [place] [address] PCP - GeneralFamily Medicine02/27/25documented as of this encounter
--- OUTSIDE RECORDS SUMMARY | 2025-08-24 12:43 | XMS_ITS | Encounter Summary ---
[id number] [address] [place] [address] Care Team Providers Care Contracts Paralegal Name Role Phone Azul Almanza STUDIO MUSICIAN-CONFIGURATION MANAGEMENT MANAGER Primary Care Provider + Encounter Details DateTypeDepartmentCare Team (Latest Contact Info)Ycaunxlrbyk23/15/2025Telephone [facility] - Family Medicine [address] [place] [address] Luz Elena Anderson CMA Social History Tobacco UseTypesPacks/DayYears UsedDateSmoking Tobacco: Every DayCigarettes0.535 Smokeless Tobacco: NeverAlcohol UseStandard Drinks/WeekCommentsNo0 (1 standard drink = 0.6 oz pure alcohol)Social Connection and Isolation PanelAnswerDate RecordedIn a typical week, how many times do you talk on the phone with family, friends, or neighbors?Once a week06/07/2021How often do you get together with friends or relatives?Once a week06/07/2021How often do you attend episcopalian or faith services?Never1Do you belong to any clubs or organizations such as episcopalian groups, unions, fraternal or athletic groups, or school groups?No 06/07/2021How often do you attend meetings of the clubs or organizations you belong to?Never1Are you , , , , never , or living with a partner?Jelkbnp2406/07/2021UDIT-CAnswerDate RecordedQ1: How often do you have a [...] care, and heating?Not hard at all03/27/2025PHQ-2AnswerDate RecordedTotal Sbarr11910/13/2024 [facility] [place] of Occupational Health - Occupational Stress Questionnaire [...] of a household?No03/27/2025hildcareAnswer Date RecordedDo problems getting children's service supervisor make it difficult for you to work [...] the highest degree you have received?GED or ktsgkhoanz65/11/2021CommentsNoSex and Gender InformationValueDate RecordedSex Assigned at IzotrEyfgqb93/17/2022 8:42 AM ESTLegal SexFemale 04/03/2015 11:40 AM EDTGender ZlpkfqrqZogqnd42/17/2022 8:42 AM ESTSexual EolsgnttjitDacgkjwx47/17/2022 8:42 AM ESTdocumented as of this encounter Miscellaneous Notes * Telephone Encounter - Luz Elena Anderson CMA - 08/12/2025 4:20 PM EST Patient is scheduled for her Echo Stress on Aug 20 at 11:30am. * Telephone Encounter - Steven Caraballo DO - 08/12/2025 4:20 PM EST Message noted. documented in this encounter Plan of Treatment DateTypeDepartmentCare Team (Latest Contact Info)Crtfjvvezkr48/16/2026 10:40 AM ESTOffice Visit [facility] [address] [place] [address] Patrice Tucker, STUDIO MUSICIAN-CONFIGURATION MANAGEMENT MANAGER [address], [place] [address] 02/13/2026 10:40 AM EDTOffice Visit [facility] [address] [place] [address] Azul Almanza, STUDIO MUSICIAN-CONFIGURATION MANAGEMENT MANAGER [address] [place] [address] documented as of this encounter Visit Diagnoses Not on filedocumented in this encounter Additional Health Concerns AssessmentNoted TimePHQ-9 Depression Total Score: 2:59 PM ESTA Body Mass Index follow-up plan has been documented for the vdqiexs3812/11/2024 2:08 PM EDTdocumented as of this encounter Care Teams Team MemberRelationshipSpecialtyStart DateEnd Date Azul Almanza, STUDIO MUSICIAN-CONFIGURATION MANAGEMENT MANAGER [address] [place] [address] PCP - GeneralFamily Medicine02/27/25documented as of this encounter
--- OUTSIDE RECORDS SUMMARY | 2025-08-24 12:43 | XMS_ITS | Encounter Summary ---
Author Organization [employer] tem Address [id number] [address] [place] [address] Care Team Providers Care Third Officer Name Role Phone Azul Almanza JEWELRY DESIGNER-MEDICAL SURGERY NURSE Primary Care Provider + Encounter Details DateTypeDepartmentCare Team (Latest Contact Info)Stdeacwlvjh42/21/2025Travel Social History Tobacco UseTypesPacks/DayYears UsedDateSmoking Tobacco: Every DayCigarettes0.535 Smokeless Tobacco: NeverAlcohol UseStandard Drinks/WeekCommentsNo0 (1 standard drink = 0.6 oz pure alcohol)Social Connection and Isolation PanelAnswerDate RecordedIn a typical week, how many times do you talk on the phone with family, friends, or neighbors?Once a week06/07/2021How often do you get together with friends or relatives?Once a week06/07/2021How often do you attend sabianist or evangelical services?Never1Do you belong to any clubs or organizations such as sabianist groups, unions, fraternal or athletic groups, or school groups?No 06/07/2021How often do you attend meetings of the clubs or organizations you belong to?Never06/07/2021re you , , , , never , or living with a partner?Ydelirc4006/07/2021UDIT-CAnswerDate RecordedQ1: How often do you have a [...] care, and heating?Not hard at all03/27/2025PHQ-2AnswerDate RecordedTotal Skjwx44810/13/2024 [facility] [place] of Occupational Health - Occupational Stress Questionnaire [...] a household?No03/27/2025hildcareAnswer Date RecordedDo problems getting child care supervisor make it difficult for you to [...] the highest degree you have received?GED or hojvblckjw79/11/2021CommentsNoSex and Gender InformationValueDate RecordedSex Assigned at LwcyxDfelri19/17/2022 8:42 AM ESTLegal SexFemale 04/03/2015 11:40 AM EDTGender VsqsggyyZnngnw55/17/2022 8:42 AM ESTSexual VfzceqoxevhLqcacmxg36/17/2022 8:42 AM ESTdocumented as of this encounter Plan of Treatment DateTypeDepartmentCare Team (Latest Contact Info)Fzguatndbjd00/16/2026 10:40 AM ESTOffice Visit [facility] [address] [place] [address] Patrice Tucker, JEWELRY DESIGNER-MEDICAL SURGERY NURSE [address], [address] [address] 02/13/2026 10:40 AM EDTOffice Visit [facility] [address] [place] [address] Azul Almanza, JEWELRY DESIGNER-MEDICAL SURGERY NURSE [address] [place] [address] documented as of this encounter Visit Diagnoses Not on filedocumented in this encounter Additional Health Concerns AssessmentNoted TimePHQ-9 Depression Total Score: 2:59 PM ESTA Body Mass Index follow-up plan has been documented for the mvgzlzb7612/11/2024 2:08 PM EDTdocumented as of this encounter Care Teams Team MemberRelationshipSpecialtyStart DateEnd Date Azul Almanza, JEWELRY DESIGNER-MEDICAL SURGERY NURSE [address] [place] [address] PCP - GeneralFamily Medicine02/27/25documented as of this encounter
[2025-08-24] MEDS: IPRATROPIUM/ALBUTEROL SULFATE 3 ML AMPUL.NEB IH (13:19)
[2025-08-24] MEDS: DEXAMETHASONE 4 MG TABLET 10 MG PO (13:49)
--- NOTE | 2025-08-24 15:15 | ED_ITS ---
HPI HPI - General Adult General Chief complaint: Shortness of Breath/Dyspnea Stated complaint: SOB Time Seen by Provider: 08/24/25 11:43 Source: patient Mode of arrival: walk-in Limitations: no limitations History of Present Illness HPI narrative: Patient is a 70-year-old female, history significant for COPD, presenting to the emergency department with a 3-day history of shortness of breath. Patient states that at rest she feels well, but when she exerts herself she experiences mild shortness of breath. She has been using her albuterol inhaler at home which seems to help. She denies fevers or chills. No cough, congestion, or URI symptoms. No fevers or chills. No chest pain. She denies history of coronary artery disease or previous MIs. No abdominal pain, nausea, vomiting. Related Data Home Medications ?Medication ?Instructions ?Recorded ?Confirmed gabapentin 300 mg capsule 300 mg PO Q12H 01/26/2412/29 hydrocodone 5 mg-acetaminophen 325 1 tab PO Q6H PRN pa in 01/26/24 01/26/24 mg tablet levothyroxine 100 mcg tablet 100 mcg PO DAILY 01/26/24 01/26/24 (Synthroid) nitrofurantoin 100 mg PO Q12H 01/26/2412/29 monohydrate/macrocrystals 100 mg capsule prednisone 20 mg tablet 20 mg PO Q12H 01/26/2401/25 simvastatin 5 mg tablet 5 mg PO DAILY 01/26/2401/25 venlafaxine 150 mg 150 mg PO DAILY 01/26/24 capsule,extended release 24 hr Previous Rx's ?Medication ?Instructions ?Recorded bisoprolol fumarate 5 mg tablet 5 mg PO DAILY #30 tabs 01/27/24 levofloxacin 750 mg tablet 750 mg PO DAILY 7 days #7 t abs 01/27/24 albuterol sulfate 90 mcg/actuation 2 inh inhalation Q4 H PRN shortness 10/18/24 aerosol inhaler of breath or wheezing #8.5 g samaria doxycycline hyclate 100 mg tablet 100 mg PO BID 10 day s #20 tabs 10/18/24 hydrocodone 5 mg-acetaminophen 325 1 tab PO Q6H PRN pa in 3 days #12 10/18/24 mg tablet tabs methylprednisolone 4 mg tablets in See Rx Instructions .Route 10/18/24 a dose pack (Medrol (Olman)) .COMPLEX #21 ea Allergies Allergy/AdvReac Type Severity Reaction Status Date / Time No Known Drug Allergies Allergy Verified 08/24/25 12:02 Opioid HPI Opioid Management Most Recent Opioid Data: Last Pain Scale 2 01/27/24, 06:04 Last ORT Total Score 2 01/26/24, 19:59 Last ORT Risk Category Low Risk 01/26/24, 19:59 Review of Systems ROS Status of ROS 10 or more systems reviewed and unremark able except as noted in history and below [facility] Medical History (Updated 08/24/25 @ 13:31 by Mario Moon DO) HTN (hypertension) ?I10 - Essential (primary) hypertension (ICD-10) Depression ?F32.A - Depression, unspecified (ICD-10) Hyperlipidemia ?E78.5 - Hyperlipidemia, unspecified (ICD-10) Hypothyroidism ?E03.9 - Hypothyroidism, unspecified (ICD-10) Tobacco dependence ?F17.200 - Nicotine dependence, unspecified, uncomplicated (ICD-10) Social History Highest level of school completed/degree received: high school graduate Little interest or pleasure in doing things: not at all Feeling down, depressed, or hopeless: not at all Do you think of yourself as: straight/heterosexual Gender Identity: female Exam Narrative Exam Narrative: CONSTITUTIONAL: Well-appearing, answering questions and following commands appropriately SKIN: Was warm and dry. EYES: Sclerae white. EARS, NOSE, THROAT: Moist oral mucosa. RESPIRATORY: Mild bilateral expiratory wheezing. No crackles. No use of accessory muscles. Speaking in full sentences. On room air. CARDIOVASCULAR: Normal rate and regular rhythm. There is no S3, S4, murmur, rub. GASTROINTESTINAL: Abdomen is nondistended. MUSCULOSKELETAL: No peripheral edema. NEUROLOGIC: Patient is awake and alert. Facies were symmetrical. Constitutional Vital Signs, click to edit/add: Last Vital Signs Temp 97.6 F 08/24/25 12:02 Pulse 86 08/24/25 13:20 Resp 23 H 08/24/25 13:20 BP 129/79 08/24/25 13:30 Pulse Ox 100 08/24/25 13:20 O2 Del Method Room Air 08/24/25 13:20 Course Vital Signs Vital signs: Vital Signs Temperature 97.6 F 08/24/25 12:02 Pulse Rate 92 H 08/24/25 12:02 Respiratory Rate 18 08/24/25 12:02 Blood Pressure 127/82 08/24/25 12:02 Pulse Oximetry 96 08/24/25 12:02 Oxygen Delivery Method Room Air 08/24/25 12:02 Temperature 97.6 F 08/24/25 12:02 Pulse Rate 86 08/24/25 13:20 Respiratory Rate 23 H 08/24/25 13:20 Blood Pressure 129/79 08/24/25 13:30 Pulse Oximetry 100 08/24/25 13:20 Oxygen Delivery Method Room Air 08/24/25 13:20 Medical Decision Making MDM Narrative Medical decision making narrative: Patient is a 70-year-old female, history significant for COPD, presenting to the emergency department 3-day history of shortness of breath. Her vital signs on arrival were significant for tachypnea, otherwise within normal limits. She is afebrile and hemodynamically stable. She is saturating 100% on room air in no respiratory distress. There is mild diffuse expiratory wheezes. Clinical impression is that her symptoms are secondary to mild COPD exacerbation. Other considerations include pneumonia, viral URI. She did just have a stress test 1 week ago, which was normal. Low concern for ACS. I did consider PE, however the patient has a Wells Score of 0 putting her at low risk. Chest x-ray was ordered. She was treated with nebulized DuoNebs and oral dexamethasone. 12 Lead EKG: Normal sinus rhythm at a rate of 81. Normal axis. No ST segment elevations. QRS, ND, and QTc interval within normal limits. Final impression: normal sinus rhythm without evidence of acute myocardial ischemia Chest x-ray independently reviewed/interpreted by myself demonstrated emphysematous changes, no acute cardiopulmonary process. On reevaluation, the patient states she feels significantly improved and feels comfortable being discharged home. She is no longer wheezing on repeat lung auscultation. I do believe the patient is stable for discharge. Patient's presentation is most likely consistent with mild COPD exacerbation. They were instructed to follow up with her PCP for further care. Return precautions were given including any new or worsening symptoms. She has an albuterol inhaler at home. Patient understands and agrees to the plan. FINAL IMPRESSION: #Acute mild COPD exacerbation, improved DISPOSITION: Discharged home CONDITION: Good Medical Records Medical records reviewed: Yes I reviewed the patient's medical records Imaging Data Chest x-ray: Attestation: I personally reviewed and interpreted this imaging study as follows: Radiologist's impression: ITS Impressions Chest X-Ray 08/24/25 12:31 IMPRESSION: No acute process. Impression dictated by: Luis Ku M.D. 08/24/2025 2:11 PM Dictation [facility] Electron[facility] authenticated by: [id number] Y Date: 08/24/2025 14:11 ECG Data Attestation: I personally reviewed and interpreted this ECG as follows: Discharge Plan Discharge Chief Complaint: Shortness of Breath/Dyspnea Clinical Impression: COPD exacerbation Patient Disposition: Home, Self-Care Time of Disposition Decision: 13:31 Condition: Good Mode of Transportation: Private Vehicle Prescriptions / Home Meds: No Action gabapentin 300 mg capsule 300 mg PO Q12H hydrocodone-acetaminophen 5-325 mg tablet 1 tab PO Q6H PRN (Reason: pain) levothyroxine [Synthroid] 100 mcg tablet 100 mcg PO DAILY nitrofurantoin monohyd/m-cryst 100 mg capsule 100 mg PO Q12H prednisone 20 mg tablet 20 mg PO Q12H simvastatin 5 mg tablet 5 mg PO DAILY venlafaxine 150 mg capsule,extended release 24hr 150 mg PO DAILY bisoprolol fumarate 5 mg tablet 5 mg PO DAILY Qty: 30 0RF levofloxacin 750 mg tablet 750 mg PO DAILY 7 Days Qty: 7 0RF hydrocodone-acetaminophen 5-325 mg tablet 1 tab PO Q6H PRN (Reason: pain) 3 Days Qty: 12 0RF Rx Instructions: DX M54.5 albuterol sulfate 90 mcg/actuation HFA aerosol inhaler 2 inh inhalation Q4H PRN (Reason: shortness of breath or wheezing) Qty: 8.5 0RF doxycycline hyclate 100 mg tablet 100 mg PO BID 10 Days Qty: 20 0RF methylprednisolone [Medrol (Olman)] 4 mg tablets,dose pack See Rx Instructions .ROUTE .COMPLEX Qty: 21 0RF Rx Instructions: Taper as directed Print Language: Niuean Instructions: COPD (Chronic Obstructive Pulmonary Disease) (ED) Referrals: JACOB ZHANG [Primary Care Provider, Unknown] - 1 week Discharge Date/Time: 08/24/25 13:57
== END 2025-08-24 13:57 | disposition home or self-care (01) ==
PROVIDERS: Emergency Provider Student in an Organized Health Care Education/Training Program; PCP Nurse Practitioner
DX: J44.1 Chronic obstructive pulmonary disease with (acute) exacerbation (principal); R06.02 Shortness of breath
CPT/HCPCS: 71046; 93005; 94640; 99284; J8540